=== PATIENT | male | born 1965 | race Caucasian/White ===

== ENCOUNTER 2016-04-15 10:22 | Day surgery (SDC) | payer BC, OTHER ==
[2016-04-12 15:26] VITALS: BMI 36.8
[~2016-04-15 10:22] MED LIST: LACTATED RINGERS 1,000 ML IV SCH; LIDOCAINE 1% 20 ML VIAL (10MG/ML) FOR IV START INTRADERMA PRN
[2016-04-15 10:45] VITALS: RESP 16; TEMP 99
[2016-04-15] MEDS ORDERED: LIDOCAINE 1% INJ 10MG/ML (20 ML MDV) ONE (11:36)
[2016-04-15] MEDS ORDERED: PROPOFOL 10 MG/ML 20 ML VIAL IV ONE (11:36)
--- NOTE | 2016-04-15 11:37 | P.GSHP ---
History of Present Illness H&P Date: 04/15/16 Chief Complaint: Screening colonoscopy This a 50-year-old male who presents today for initial screening colonoscopy. Patient denies a significant GI complaints. He's never had a colonoscopy before. - Constitutional Constitutional: Reports as per HPI Past Medical History Past Medical History: GERD/Reflux, Hyperlipidemia, Sleep Apnea/CPAP/BIPAP Additional Past Medical History / Comment(s): CHRONIC LOWER NECK PAIN, OCC BACK PAIN. USES CPAP OCC. History of Any Multi-Drug Resistant Organisms: None Reported Past Surgical History: Orthopedic Surgery Additional Past Surgical History / Comment(s): EXC GANGLION CYST HAND, pain clinic procedures Past Anesthesia/Blood Transfusion Reactions: No Reported Reaction Additional Past Anesthesia/Blood Transfusion Reaction / Comment(s): NO HX OF ANESTHESIA, has had sedation with pain clinic procedures. Past Psychological History: No Psychological Hx Reported Smoking Status: Never smoker Past Alcohol Use History: Rare Past Drug Use History: None Reported - Past Family History Mother Family Medical History: No Reported History Medications and Allergies Home Medications Medication Instructions Recorded Confirmed Type Pravastatin Sodium [Pravachol] 40 mg PO HS 07/23/13 04/15/16 History Omeprazole [PriLOSEC] 20 mg PO HS 10/18/13 04/15/16 History Ascorbic Acid [Vitamin C] 500 mg PO DAILY 11/13/15 04/15/16 History Cholecalciferol [Vitamin D3] 1,000 unit PO DAILY 11/13/15 04/15/16 History Multivitamin [Men's Multi-Vitamin] 1 tab PO DAILY 11/13/15 04/15/16 History traMADol HCl [Ultram] 50 mg PO QID PRN 02/06/16 04/15/16 History Allergies Allergy/AdvReac Type Severity Reaction Status Date / Time No Known Allergies Allergy Verified 04/15/16 10:48 Surgical - Exam Vital Signs Temp Pulse Resp BP Pulse Ox 99 F 99 16 115/78 94 L 04/15/16 10:41 04/15/16 10:41 04/15/16 10:41 04/15/16 10:41 04/15/16 10:41 - General well developed, no distress - Eyes PERRL - ENT normal pinna - Neck no masses - Respiratory normal expansion - Cardiovascular Rhythm: regular - Abdomen Abdomen: soft, non tender Assessment and Plan Plan: We'll perform screening colonoscopy
--- NOTE | 2016-04-15 11:50 | P.OP ---
Date of Procedure: 04/15/16 Preoperative Diagnosis: Screening colonoscopy Postoperative Diagnosis: Normal colon Procedure(s) Performed: Colonoscopy Anesthesia: MAC Surgeon: Rick Kumar Pathology: none sent Condition: stable Disposition: PACU Description of Procedure: PROCEDURE: The patient was placed on the endoscopy table in the lateral position. Digital rectal examination was performed which revealed no abnormalities. The prostate was symmetrical without nodules. Flexible colonoscope was then placed in the patient's anus and passed throughout the entire colon. The ileocecal valve was visualized. The cecum, ascending, transverse, descending and sigmoid colon were normal. The rectum was normal as well. There were no masses, polyps or diverticula noted in the entire colon. SUMMARY OF FINDINGS: Normal colonoscopy.
[2016-04-15 12:31] VITALS: BP 116/83; PULSE 68
== END 2016-04-15 12:34 | disposition home or self-care (01) ==
LOC: ORWHC2ENDO 10:22
PROVIDERS: ATTEND Surgery
DX: Z12.11 Encounter for screening for malignant neoplasm of colon (principal); K21.9 Gastro-esophageal reflux disease without esophagitis; E78.5 Hyperlipidemia, unspecified; G47.33 Obstructive sleep apnea (adult) (pediatric); G89.29 Other chronic pain; Z79.1 Long term (current) use of non-steroidal anti-inflammatories (NSAID); Z79.899 Other long term (current) drug therapy
CPT/HCPCS: J2001; J2704; G0121; 45378

== ENCOUNTER → 2016-04-19 | Outpatient (CLI) | payer BC, OTHER | END | disposition home or self-care (01) | LOC: RADMRIMAIN 11:41 | PROVIDERS: ATTEND Family Medicine | DX: R51 Headache (principal); Z53.9 Procedure and treatment not carried out, unspecified reason ==

== ENCOUNTER → 2016-04-21 | Outpatient (CLI) | payer BC, OTHER ==
--- NOTE | 2016-04-21 09:17 | MR ---
MRI of the brain with and without contrast HISTORY: Headaches. TECHNIQUE: T1-weighted sagittal, T2, FLAIR, and diffusion axial, postcontrast T1 axial and coronal vi ews of the brain are submitted. CONTRAST: 20 mL MultiHance FINDINGS: There is no evidence of acute ischemia. The ventricles, basal cisterns, and sulci overlying the co nvexities are consistent with the patient's age. There is no mass effect or enhancing mass. Changes of chronic sinusitis noted. Craniocervical junction maintained. Sella turcica has a normal appearance. No cerebellopontine angle mass. IMPRESSION: 1. No acute intracranial process. 2. Mild chronic sinusitis.
== END | disposition home or self-care (01) ==
LOC: RADMRIMAIN 08:14
PROVIDERS: ATTEND Family Medicine
DX: J32.9 Chronic sinusitis, unspecified (principal); R51 Headache
CPT/HCPCS: 70553; A9577

== ENCOUNTER 2016-05-19 06:47 | Day surgery (SDC) | payer BC, OTHER ==
[2016-05-13 15:43] VITALS: BMI 36.0
[2016-05-19 07:27] VITALS: RESP 18; TEMP 98.3
[2016-05-19] MEDS ORDERED: LACTATED RINGERS 1,000 ML IV SCH (07:30)
[2016-05-19] MEDS ORDERED: LIDOCAINE 1% 20 ML VIAL (10MG/ML) FOR IV START INTRADERMA ONE (07:45)
[2016-05-19] MEDS ORDERED: IOHEXOL 180 MG/ML 1 ML ML ONE (08:09)
[2016-05-19] MEDS ORDERED: DEXAMETHASONE SOD PHOSPHATE 10 MG/ML 1 ML VIAL ONE (08:09)
[2016-05-19] MEDS ORDERED: fentaNYL (PF) 50 MCG/ML 2 ML AMP ONE (08:09)
[2016-05-19] MEDS ORDERED: BUPIVACAINE (PF) 0.5% 30 ML VIAL ONE (08:09)
[2016-05-19] MEDS ORDERED: MIDAZOLAM 2 MG/2 ML VIAL ONE (08:09)
--- NOTE | 2016-05-19 08:34 | FL ---
EXAMINATION TYPE: FL guided pain mgmt statistic DATE OF EXAM: 05/19/2016 8:31 AM HISTORY: Pain cervical epidural steroid injection, 1sec fl time
[2016-05-19] MEDS ORDERED: LACTATED RINGERS 1,000 ML IV ONE (08:35)
[2016-05-19 08:38] VITALS: PULSE 75
--- NOTE | 2016-05-19 08:45 | P.PCN ---
Date of Procedure: 05/19/16 Preoperative Diagnosis: #1 severe persistent neck pain #2 degenerative disc disease cervical spine with multiple level neuroforaminal stenosis #3 cervical radiculopathy Postoperative Diagnosis: Same Procedure(s) Performed: Transcervical epidural injection at C6-C7 with local anesthetic and corticosteroid utilizing fluoroscopic assistance for needle placement Anesthesia: MAC Surgeon: Sj Ann Estimated Blood Loss (ml): 0 IV fluids (ml): 400 Pathology: none sent Condition: stable Disposition: PACU Indications for Procedure: 1 severe persistent neck pain #2 severe unrelenting cervical radiculopathy left greater than right Description of Procedure: DESCRIPTION OF THE PROCEDURE: The patient was brought to the same day surgery center where the patient was changed into a surgical gown. Full external monitors were placed. The patient was positioned in a sitting position with legs dangling over the bedside and arms resting on a pillow on a bedside table. A wide field Betadine prep was performed to neck and upper back and the area was draped in the usual sterile technique. Gross palpation was utilized to identify the skin and subcutaneous tissue immediately overlying the C6-7 vertebral level. In the midline at this appropriate C6-7 vertebral level, the skin, superficial and deep subcutaneous tissues were infiltrated in the midline with 6 mL of 1% preservative-free Xylocaine in a field block technique overlying the C6-7 vertebral level. Through the previously anesthetized area an #18-gauge Tuohy needle was passed until the tip of the needle was felt to be in the posterior ligamentous complex. Once this was achieved, the epidural needle stylet was removed and a tmfe-xv-witergvdtp syringe was attached, and utilizing a oduf-pb-iwqlrdjzdk technique the cervical epidural space at the C6- 7 level was located with ease. Following confirmation of the location of the epidural space, the epidural syringe was detached and no blood or cerebrospinal fluid was noted to be coming from the hub of the epidural needle. At this point in time, a solution containing 80 mg of Depo-Medrol, 5.0 mL of 0.25% preservative-free Marcaine, and 3 mL of 0.9% preservative-free normal saline was injected through the epidural needle into the cervical epidural space after negative aspiration. The patient tolerated the injection of the therapeutic substance without any difficulty or complication whatsoever. Upon completion of the therapeutic injection, the needle was removed and hemostasis was noted. A sterile dressing was applied.
[2016-05-19 08:54] VITALS: BP 111/70
--- NOTE | 2016-05-24 06:30 | CDI ---
Dear Dr. Ann, The Procedure note documents that MAC anesthesia was provided. The Pain Procedure Record, however, has Moderate Sedation checked under Anesthesia Plan. This is conflicting documentation that needs clarification. For proper report purposes, please clarify if the sedation provided Wai Saleh was MAC (Monitored Anesthesia Care) or Moderate/Copnscious Sedation. PLEASE DOCUMENT THIS CLARIFICATION AN ADDENDUM TO THE PROCEDURE NOTE. If you have any questions regarding this query, please contact Shaneka Beach, Cosmetologist Apprentice at [phone]. Thank you for your time, Onelia OrdoñezM[facility] Outpatient Seed Expert [email or web address]
== END 2016-05-19 09:06 | disposition home or self-care (01) ==
LOC: ORPAIN 06:47
PROVIDERS: ATTEND Anesthesiology
DX: G89.29 Other chronic pain (principal); M54.2 Cervicalgia; M50.10 Cervical disc disorder with radiculopathy, unspecified cervical region; M48.02 Spinal stenosis, cervical region; Z79.1 Long term (current) use of non-steroidal anti-inflammatories (NSAID); Z79.891 Long term (current) use of opiate analgesic
CPT/HCPCS: 62321; 99152; J2250; J1100; Q9965; J3010

== ENCOUNTER 2016-08-05 07:52 | Day surgery (SDC) | payer BC, OTHER ==
[2016-08-02 15:11] VITALS: BMI 36.0
[~2016-08-05 07:52] MED LIST changes: -LIDOCAINE 1% 20 ML VIAL (10MG/ML) FOR IV START INTRADERMA PRN
[2016-08-05 08:11] VITALS: TEMP 98.3
[2016-08-05] MEDS ORDERED: MIDAZOLAM 2 MG/2 ML VIAL ONE (08:51)
[2016-08-05] MEDS ORDERED: fentaNYL (PF) 50 MCG/ML 2 ML AMP ONE (08:51)
[2016-08-05] MEDS ORDERED: IOHEXOL 180 MG/ML 1 ML ML ONE (08:51)
[2016-08-05] MEDS ORDERED: DEXAMETHASONE SOD PHOSPHATE 10 MG/ML 1 ML VIAL ONE (08:51)
--- NOTE | 2016-08-05 09:09 | P.PCN ---
Date of Procedure: 08/05/16 Preoperative Diagnosis: Postoperative Diagnosis: Procedure(s) Performed: . PROCEDURE 1. Cervical epidural steroid injection under fluoroscopic guidance, C6-7 2. Cervical epidurogram. PREOPERATIVE DIAGNOSIS: 1- Cervical Degenerative Disc Diseases 2- Cervical radiculopathy. POSTOPERATIVE DIAGNOSIS: : 1- Cervical Degenerative Disc Diseases , 2- Cervical radiculopathy. ANESTHESIA: Local anesthesia with 1% lidocaine3 ml ,and IV sedation with Versed 2 mg and Fentanyl 100 mcg. EBL 0 PROCEDURE INDICATION: The patient with neck pain and radiculitis unresponsive to conservative treatment consents for procedure. PROCEDURE DESCRIPTION / TECHNIQUE: The patient was seen and identified in the preoperative area. Risks, benefits, complications, including but not limited to infections ,bleeding , allergic reactions to the medications ,and not complete pain releife, and alternatives were discussed with the patient, the patient agreed to proceed with the procedure and signed the consent. Patient was taken to the OR and time out was completed. The patient was placed in the prone position on the procedure table. A pillow was placed under the patients chest to increase the cervical interlaminar space. The cervical area was prepped and draped in the usual sterile fashion. Vital signs were closely monitored during the procedure. Conscious sedation was used during the procedure to decrease patients anxiety. Using anterior-posterior fluoroscopy, the C6-7 interlaminar space was identified and the skin over this site was marked and then infiltrated with 1% lidocaine subcutaneously. Subsequently, a 20-gauge 3-1/2-inch Tuohy epidural needle was inserted and advanced toward the epidural space by means of the `` hanging-drop technique and guided by AP and lateral fluoroscopy. The correct needle position in the epidural space was verified with the injection of 2 mL of the water soluble contrast dye Isovue-180 and observing an excellent epidurogram with the epidural spread of the dye, after negative aspiration for blood and CSF and in the absence of paresthesias. Again after negative aspiration, mixture containing 20 mg Dexamethasone and 2 ml of preservative- free normal saline injected and a washout of epidurogram was seen. Needle was withdrawn intact, skin was cleansed, and bandages were applied. Complications= none. Disposition= patient was placed in supine position and transferred to the recovery room area in stable condition and there was no evidence of upper or lower extremity motor or sensory deficit after the procedure patient was discharged from recovery room after discharge criteria met and home discharge instructions was given by the staff and patient will follow with the pain clinic in 2-4 weeks Implants: Indications for Procedure: Operative Findings: Description of Procedure:
[2016-08-05] MEDS ORDERED: IV FLUID CONTINUATION 1,000 ML IV ONE (09:16)
--- NOTE | 2016-08-05 09:25 | FL ---
EXAMINATION TYPE: FL guided pain mgmt statistic DATE OF EXAM: 08/05/2016 HISTORY: Flouroscopy time 4 seconds of fluoroscopy provided. IMPRESSION: 1. Fluoroscopy time.
[2016-08-05 09:36] VITALS: BP 141/88; PULSE 66; RESP 16
== END 2016-08-05 09:42 | disposition home or self-care (01) ==
LOC: ORPAIN 07:52
PROVIDERS: ATTEND Specialist
DX: M50.10 Cervical disc disorder with radiculopathy, unspecified cervical region (principal)
CPT/HCPCS: 62321; 99152; J2250; J1100; Q9965; J3010

== ENCOUNTER 2016-11-10 08:51 | Day surgery (SDC) | payer BC, OTHER ==
[2016-11-08 15:06] VITALS: BMI 36.8
[2016-11-10 10:42] VITALS: RESP 16; TEMP 98.2
--- NOTE | 2016-11-10 11:18 | FL ---
EXAMINATION TYPE: FL guided pain mgmt statistic DATE OF EXAM: 11/10/2016 CLINICAL HISTORY: Neck pain. TECHNIQUE: Fluoroscopy. COMPARISON: None. FINDINGS: Fluoroscopic guidance was provided during pain relief procedure performed by Dr. Payton . A total of 8 seconds of fluoroscopic time was utilized during the procedure and two spot images are a cquired. Images acquired shows needle localization with contrast injection in the lower cervical spi ne epidural space. IMPRESSION: As Above.
[2016-11-10 11:32] VITALS: PULSE 62
[2016-11-10] MEDS ORDERED: IV FLUID CONTINUATION 1,000 ML IV ONE (11:44)
--- NOTE | 2016-11-10 11:45 | P.PCN ---
Date of Procedure: 11/10/16 Surgeon: Jimi Payton Pathology: none sent Condition: stable Disposition: PACU Description of Procedure: PROCEDURE: 1. Cervical epidural steroid injection under fluoroscopic guidance, C7-T1 2. Cervical epidurogram. PREOPERATIVE DIAGNOSIS: 1- Cervical radiculopathy., POSTOPERATIVE DIAGNOSIS: : 1- Cervical radiculopathy. ANESTHESIA: Local anesthesia with 1% lidocaine and IV sedation with Versed 2 mg and Fentanyl 100 mcg. PROCEDURE INDICATION: The patient with neck pain and radiculitis unresponsive to conservative treatment consents for procedure. No use of blood thinners. PROCEDURE DESCRIPTION / TECHNIQUE: The patient was seen and identified in the preoperative area. Risks, benefits, complications (with risks including but not limited to infections, bleeding, nerve damage, allergic reactions to the medications, and incomplete pain relief) and alternatives were discussed with the patient, the patient agreed to proceed with the procedure and signed the consent after all questions were answered to patient's satisfaction. Patient was taken to the OR and time out was completed. The patient was placed in the prone position on the procedure table. A pillow was placed under the patients chest to increase the cervical interlaminar space. The cervical area was prepped and draped in the usual sterile fashion. Vital signs were closely monitored during the procedure. Conscious sedation was used during the procedure to decrease patients anxiety. Using anterior-posterior fluoroscopy, the C7-T1 interlaminar space was identified and the skin over this site was marked and then infiltrated with 1% lidocaine subcutaneously in a right paramedian fashion. Subsequently, a 20- gauge 3-1/2-inch Tuohy epidural needle was inserted and advanced toward the right side of the epidural space by means of the loss of resistance technique and guided by AP and lateral fluoroscopy. The correct needle position in the epidural space was verified with the injection of 1 mL of the water soluble contrast dye Isovue-180 and observing an excellent epidurogram with the epidural spread of the dye, after negative aspiration for blood and CSF and in the absence of paresthesias. Again after negative aspiration, a 4 ml mixture containing 20 mg Decadron and 2 ml of preservative-free saline, the solution was injected and a washout of epidurogram was seen. Needle was withdrawn intact , skin was cleansed, and bandages were applied. Complications: No acute complications. Disposition: patient was placed in supine position and transferred to the recovery room area in stable condition. There was no evidence of upper or lower extremity motor or sensory deficit after the procedure. Patient was discharged from recovery room after discharge criteria met and home discharge instructions was given by the staff and patient will follow up with the pain clinic for another procedure in approximately 2-3 months. He was given a prescription for Motrin 800 mg #90 with two refills.
[2016-11-10 11:48] VITALS: BP 103/64
== END 2016-11-10 12:00 | disposition home or self-care (01) ==
LOC: ORPAIN 08:51
PROVIDERS: ATTEND Anesthesiology
DX: M54.12 Radiculopathy, cervical region (principal); K21.9 Gastro-esophageal reflux disease without esophagitis; E78.5 Hyperlipidemia, unspecified; Z79.899 Other long term (current) drug therapy
CPT/HCPCS: 62321; 99152; J2250; J1100; Q9965; J3010

== ENCOUNTER 2017-03-16 07:55 | Day surgery (SDC) | payer BC, OTHER ==
[2017-03-10 16:14] VITALS: BMI 36.8
[2017-03-16] MEDS ORDERED: LACTATED RINGERS 1,000 ML IV SCH (08:15)
[2017-03-16 09:22] VITALS: TEMP 97.3
[2017-03-16] MEDS ORDERED: LIDOCAINE 1% 20 ML VIAL (10MG/ML) FOR IV START INTRADERMA ONE (09:22)
[2017-03-16] MEDS ORDERED: IV FLUID CONTINUATION 1,000 ML IV ONE (10:04)
[2017-03-16 10:06] VITALS: RESP 18
[2017-03-16 10:28] VITALS: BP 111/75; PULSE 69
--- NOTE | 2017-03-16 10:40 | FL ---
Fluoroscopy INDICATION: Pain FINDINGS: Fluoroscopy time: 7 seconds. Images obtained: 2. IMPRESSIONS: 1. Documentation of fluoroscopy.
--- NOTE | 2017-03-21 12:39 | P.PCN ---
Date of Procedure: 03/21/17 Surgeon: Jimi Payton Pathology: none sent Condition: stable Disposition: PACU Description of Procedure: PROCEDURE: 1. Cervical epidural steroid injection under fluoroscopic guidance, C7-T1 2. Cervical epidurogram. PREOPERATIVE DIAGNOSIS: 1- Cervical radiculopathy., POSTOPERATIVE DIAGNOSIS: : 1- Cervical radiculopathy. ANESTHESIA: Local anesthesia with 1% lidocaine and IV sedation with Versed/ fentanyl PROCEDURE INDICATION: The patient with neck pain and radiculitis unresponsive to conservative treatment consents for procedure after excellent relief from previous CESIs. No use of blood thinners. PROCEDURE DESCRIPTION / TECHNIQUE: The patient was seen and identified in the preoperative area. Risks, benefits, complications (with risks including but not limited to infections, bleeding, nerve damage, allergic reactions to the medications, and incomplete pain relief) and alternatives were discussed with the patient, the patient agreed to proceed with the procedure and signed the consent after all questions were answered to patient's satisfaction. Patient was taken to the OR and time out was completed. The patient was placed in the prone position on the procedure table. A pillow was placed under the patients chest to increase the cervical interlaminar space. The cervical area was prepped and draped in the usual sterile fashion. Vital signs were closely monitored during the procedure. Conscious sedation was used during the procedure to decrease patients anxiety. Using anterior-posterior fluoroscopy, the C7-T1 interlaminar space was identified and the skin over this site was marked and then infiltrated with 1% lidocaine subcutaneously in a right paramedian fashion. Subsequently, a 20- gauge 3-1/2-inch Tuohy epidural needle was inserted and advanced toward the right side of the epidural space by means of the loss of resistance technique and guided by AP and lateral fluoroscopy. The correct needle position in the epidural space was verified with the injection of 1 mL of the water soluble contrast dye Isovue-180 and observing an excellent epidurogram with the epidural spread of the dye, after negative aspiration for blood and CSF and in the absence of paresthesias. Again after negative aspiration, a 4 ml mixture containing 20 mg Decadron and 2 ml of preservative-free saline was injected and a washout of epidurogram was seen. Needle was withdrawn intact, skin was cleansed, and bandages were applied. Complications: No acute complications. Disposition: patient was placed in supine position and transferred to the recovery room area in stable condition. There was no evidence of upper or lower extremity motor or sensory deficit after the procedure. Patient was discharged from recovery room after discharge criteria met and home discharge instructions was given by the staff and patient will follow up with the pain clinic for another procedure in approximately 2-3 months.
== END 2017-03-16 10:54 | disposition home or self-care (01) ==
LOC: ORPAIN 07:55
PROVIDERS: ATTEND Anesthesiology
DX: M54.12 Radiculopathy, cervical region (principal); E78.5 Hyperlipidemia, unspecified; K21.9 Gastro-esophageal reflux disease without esophagitis
CPT/HCPCS: 62321; J2250; J1100; Q9965; J3010

== ENCOUNTER 2017-06-15 08:54 | Day surgery (SDC) | payer BC, OTHER ==
[2017-06-15] MEDS ORDERED: LACTATED RINGERS 1,000 ML IV SCH (09:15)
[2017-06-15 09:24] VITALS: RESP 16; TEMP 98
[2017-06-15] MEDS ORDERED: LIDOCAINE 1% 20 ML VIAL (10MG/ML) FOR IV START INTRADERMA ONE (09:33)
--- NOTE | 2017-06-15 09:58 | P.PCN ---
Date of Procedure: 06/15/17 Surgeon: Jimi Payton Pathology: none sent Condition: stable Disposition: PACU Description of Procedure: PROCEDURE: 1. Cervical epidural steroid injection under fluoroscopic guidance, C7-T1 2. Cervical epidurogram. PREOPERATIVE DIAGNOSIS: 1- Cervical radiculopathy., POSTOPERATIVE DIAGNOSIS: : 1- Cervical radiculopathy. ANESTHESIA: Local anesthesia with 1% lidocaine and IV sedation with Versed/ fentanyl PROCEDURE INDICATION: The patient with neck pain and radiculitis unresponsive to conservative treatment consents for procedure after excellent relief from previous CESIs. No use of blood thinners. PROCEDURE DESCRIPTION / TECHNIQUE: The patient was seen and identified in the preoperative area. Risks, benefits, complications (with risks including but not limited to infections, bleeding, nerve damage, allergic reactions to the medications, and incomplete pain relief) and alternatives were discussed with the patient, the patient agreed to proceed with the procedure and signed the consent after all questions were answered to patient's satisfaction. Patient was taken to the OR and time out was completed. The patient was placed in the prone position on the procedure table. A pillow was placed under the patients chest to increase the cervical interlaminar space. The cervical area was prepped and draped in the usual sterile fashion. Vital signs were closely monitored during the procedure. Conscious sedation was used during the procedure to decrease patients anxiety. Using anterior-posterior fluoroscopy, the C7-T1 interlaminar space was identified and the skin over this site was marked and then infiltrated with 1% lidocaine subcutaneously in a right paramedian fashion. Subsequently, a 20- gauge 3-1/2-inch Tuohy epidural needle was inserted and advanced toward the right side of the epidural space by means of the loss of resistance technique and guided by AP and lateral fluoroscopy. The correct needle position in the epidural space was verified with the injection of 1 mL of the water soluble contrast dye Isovue-180 and observing an excellent epidurogram with the epidural spread of the dye, after negative aspiration for blood and CSF and in the absence of paresthesias. Again after negative aspiration, a 3 ml mixture containing 20 mg Decadron and 1 ml of preservative-free saline was injected and a washout of epidurogram was seen. Needle was withdrawn intact, skin was cleansed, and bandages were applied. Complications: No acute complications. Disposition: patient was placed in supine position and transferred to the recovery room area in stable condition. There was no evidence of upper or lower extremity motor or sensory deficit after the procedure. Patient was discharged from recovery room after discharge criteria met and home discharge instructions was given by the staff and patient will return for another cervical ANDREAS procedure in approximately 3 months.
[2017-06-15] MEDS ORDERED: IV FLUID CONTINUATION 1,000 ML IV ONE (10:03)
--- NOTE | 2017-06-15 10:06 | FL ---
EXAMINATION TYPE: FL guided pain mgmt statistic DATE OF EXAM: 06/15/2017 HISTORY: Flouroscopy time 8 seconds of fluoroscopy provided. IMPRESSION: 1. Fluoroscopy time.
[2017-06-15 10:20] VITALS: BP 117/65; PULSE 70
== END 2017-06-15 10:40 | disposition home or self-care (01) ==
LOC: ORPAIN 08:54
PROVIDERS: ATTEND Anesthesiology
DX: G89.29 Other chronic pain (principal); M54.12 Radiculopathy, cervical region; E78.5 Hyperlipidemia, unspecified; K21.9 Gastro-esophageal reflux disease without esophagitis; Z79.899 Other long term (current) drug therapy
CPT/HCPCS: 62321; J2250; J1100; J3010; Q9966; 99152

== ENCOUNTER 2017-10-05 09:09 | Day surgery (SDC) | payer BC, OTHER ==
[2017-09-30 09:41] VITALS: BMI 37.5
[2017-10-05 10:20] VITALS: RESP 18; TEMP 98
[2017-10-05] MEDS ORDERED: LIDOCAINE 1% 20 ML VIAL (10MG/ML) FOR IV START INTRADERMA ONE (10:20)
[2017-10-05] MEDS ORDERED: LACTATED RINGERS 1,000 ML IV ONE (10:20)
--- NOTE | 2017-10-05 11:15 | P.PCN ---
Date of Procedure: 10/05/17 Procedure(s) Performed: . PROCEDURE 1. Cervical epidural steroid injection under fluoroscopic guidance, C7-T1 2. Cervical epidurogram. PREOPERATIVE DIAGNOSIS: 1- Cervical radiculopathy. POSTOPERATIVE DIAGNOSIS: : 1- Cervical radiculopathy. ANESTHESIA: Local anesthesia with 1% lidocaine and IV sedation with Versed 4 mg and Fentanyl 100 mcg. EBL 0 PROCEDURE INDICATION: The patient with neck pain and radiculitis unresponsive to conservative treatment consents for procedure. PROCEDURE DESCRIPTION / TECHNIQUE: The patient was seen and identified in the preoperative area. Risks, benefits, complications, including but not limited to infections ,bleeding , allergic reactions to the medications ,and not complete pain releife, and alternatives were discussed with the patient, the patient agreed to proceed with the procedure and signed the consent. Patient was taken to the OR and time out was completed. The patient was placed in the prone position on the procedure table. A pillow was placed under the patients chest to increase the cervical interlaminar space. The cervical area was prepped and draped in the usual sterile fashion. Vital signs were closely monitored during the procedure. Conscious sedation was used during the procedure to decrease patients anxiety. Using anterior-posterior fluoroscopy, the C7-T1 interlaminar space was identified and the skin over this site was marked and then infiltrated with 1% lidocaine subcutaneously. Subsequently, a 20-gauge 3-1/2-inch Tuohy epidural needle was inserted and advanced toward the epidural space by means of the `` hanging-drop technique and guided by AP and lateral fluoroscopy. The correct needle position in the epidural space was verified with the injection of 2 mL of the water soluble contrast dye Isovue-200 and observing an excellent epidurogram with the epidural spread of the dye, after negative aspiration for blood and CSF and in the absence of paresthesias. Again after negative aspiration, mixture containing 20 mg Dexamethasone and 2 ml of preservative- free normal saline injected and a washout of epidurogram was seen. Needle was withdrawn intact, skin was cleansed, and bandages were applied. Complications= none. Disposition= patient was placed in supine position and transferred to the recovery room area in stable condition and there was no evidence of upper or lower extremity motor or sensory deficit after the procedure patient was discharged from recovery room after discharge criteria met and home discharge instructions was given by the staff and patient will follow with the pain clinic in 2-4 weeks
[2017-10-05] MEDS ORDERED: IV FLUID CONTINUATION 1,000 ML IV ONE (11:19)
--- NOTE | 2017-10-05 11:26 | FL ---
EXAMINATION TYPE: FL guided pain mgmt statistic DATE OF EXAM: 10/05/2017 CLINICAL HISTORY: Neck pain. TECHNIQUE: Fluoroscopy. COMPARISON: None. FINDINGS: Fluoroscopic guidance was provided during pain relief procedure performed by Dr. Mccoy . A total of 3 seconds of fluoroscopic time was utilized during the procedure and single spot fluoro scopic image is acquired. Single image acquired shows needle localization at C7 level. IMPRESSION: As Above.
[2017-10-05 11:41] VITALS: BP 107/70; PULSE 73
== END 2017-10-05 11:51 | disposition home or self-care (01) ==
LOC: ORPAIN 09:09
PROVIDERS: ATTEND Specialist
DX: M54.12 Radiculopathy, cervical region (principal)
CPT/HCPCS: 62321; J2250; J1100; J3010; Q9966; 99152

== ENCOUNTER → 2018-06-12 | Outpatient (CLI) | payer BC, OTHER ==
[2018-06-12 11:43] VITALS: BP 122/83; PULSE 81; RESP 16
--- NOTE | 2018-06-12 12:18 | P.PAINPG ---
Subjective Progress Note Date: 06/12/18 This is a follow visit for this 52 years old male with a chronic history of severe neck pain with radiation to the upper extremity, patient diagnosed with cervical radiculopathy and cervical disc disease multilevels, patient had multiple cervical epidural steroid injections done previously ,which helped his neck pain significantly, last cervical epidural steroid injection was done in December 2017, she reported that over the last 2-3 months his neck pain increased, and he is currently complaining of numbness and tingling sensation in the right upper extremity, the neck pain increases with any neck movement and with any activity, he denies any motor or sensory deficit he denies any change in her bowel movements or urination he denies any fever or night sweats, he continued to use Motrin 6-800 mg every 8 hours when necessary, he denies any side effect of the medication, Objective - Vital Signs Vital signs: Vital Signs Temp Pulse 81 06/12/18 11:37 Resp 16 06/12/18 11:37 BP 122/83 06/12/18 11:37 Pulse Ox Intake & Output 06/11/18 06/12/18 06/12/18 18:59 06:59 18:59 Weight 113.398 kg - Exam Physical Examinations : -Constitutiona : Cooperative , not in acute distress . -HEENT : nech ; supple , no Lymphadenopathy , normal thyroid size . eyes : no ptosis , no icterus, no photophobia . ENT : normal of hearing , normal oropharynx , no Thrush . - Respiratory : Chest clear to auscultations Bilaterally , no wheezing , no Rhonchi . - Cardiovascula : regular rate and rhythem , S1 , S2 , no S3 , no S4. - Gastrointestina : abdomen soft no tenderness , bowel sounds , no organomegally . - Genitourinary : Defferred . - neurologic : Cranial nerve II to XII intact , no focal neurological deffecit . -psychatric : alert , oriented X 3 , appropriate affect , intact judgment and insight . -Lymphatic : no Lymphadenopathy . - musculoskeltal : Cervical Spine motor stregnth in the deltoid and biceps, normal right side , normal Left side motor stregnth biceps and the wrist extensors normal right side ,normal left side . motor stregnth in the triceps muscle . normal Right side , normal Left side deep tendon reflexes normal at the biceps , normal at Brachioradialis , normal at triceps. positive cervical facet loading test . Spurling test negative bilaterally. Neck distraction test negative bilaterally. Todd sign negative bilaterally. Assessment and Plan Plan: Assessment and plan=1-cervical radiculopathy. 2-cervical disc herniation. Patient could benefit from repeat cervical epidural steroid injection at C7-T1 , also patient benefits from Motrin 800 mg every 8 hours Patient getting medication [id number] , side effect of the medication discussed with the patient. Discussed with the patient the option of referring him to see an/spine surgeon for evaluation, patient declined. Time with Patient: Less than 30 PQRS Measure Charge Sheet Measure #130: Documentation of Current Meds in Medical Chart: Patient's medications documented in chart Measure #226: Tobacco Use: Screen & Cessation Intervention: Pt not a tobacco user Measure #111: Pneumonia Vaccination: Pneumococcal vaccine NOT administered or previously given Measure #47: Advance Care Plan: Advance care planning discussed & documented, pt chose/unable to give Measure #412: Opioid Treatment Agreement: No documentation of signed opioid treatment agreement Measure #408: Opioid Therapy Follow-up Evaluation: Patient had NO f/u eval minimum every 3 months during opioid therapy Measure #317: Preventitive Care & Scrn High Bld Press & F/U: Normal blood pressure, f/u not required Measure #128: Body Mass Index (BMI) Screening & Follow-up: BMI documented ABOVE normal parameters - f/u documented Measure #131: Pain Assessment & Follow-up: Pain positive & plan documented, Follow-up scheduled Measure #431: Unhealthy Alcohol Use Preventative Care & Scrn: Patient not identified as an unhealthy alcohol user PQRS Narrative: Smoking Status Never smoker Do You Want the Pneumonia No Vaccine AT THIS TIME? Blood Pressure 122/83 Pain Intensity [Posterior Neck 9 ] Scale Used Numeric (1 - 10) Hx Alcohol Use (MH) No Home Medications: Ambulatory Orders Pravastatin Sodium [Pravachol] 40 mg PO HS 07/23/13 Omeprazole [PriLOSEC] 20 mg PO HS 10/18/13 Ascorbic Acid [Vitamin C] 500 mg PO DAILY 11/13/15 Cholecalciferol [Vitamin D3] 1,000 unit PO DAILY 11/13/15 Multivitamin [Men's Multi-Vitamin] 1 tab PO DAILY 11/13/15 Ibuprofen [Motrin] 600 mg PO Q8HR PRN #60 tab 01/13/16 Controlled Substance Measures - Controlled Substance Measures Is patient prescribed a controlled substance at discharge?: No
== END | disposition home or self-care (01) ==
LOC: PNWHC3 11:18
PROVIDERS: ATTEND Anesthesiology
DX: G89.29 Other chronic pain (principal); M50.10 Cervical disc disorder with radiculopathy, unspecified cervical region
CPT/HCPCS: 99211

== ENCOUNTER 2018-06-27 05:37 | Day surgery (SDC) | payer BC, OTHER ==
[2018-06-23 12:05] VITALS: BMI 37.5
[2018-06-27 06:09] VITALS: TEMP 97.4
[2018-06-27] MEDS ORDERED: LIDOCAINE 1% 20 ML VIAL (10MG/ML) FOR IV START INTRADERMA ONE (06:09)
[2018-06-27] MEDS ORDERED: LACTATED RINGERS 1,000 ML IV ONE (06:09)
--- NOTE | 2018-06-27 06:46 | P.PCN ---
Date of Procedure: 06/27/18 Description of Procedure: PROCEDURE 1. Cervical epidural steroid injection under fluoroscopic guidance, C7-T1 2. Cervical epidurogram. PREOPERATIVE DIAGNOSIS: Cervical radiculopathy POSTOPERATIVE DIAGNOSIS: Cervical radiculopathy ANESTHESIA: Local anesthesia with 1% lidocaine and (IV conscious sedation ) PROCEDURE DESCRIPTION / TECHNIQUE: The patient was seen and identified in the preoperative area. Risks, benefits, complications, including but not limited to infections ,bleeding , allergic reactions to the medications,and incomplete pain relief. Risks, benefits, and alternatives were discused with the patient and the patient has consented to the procedure. Patient was taken to the OR and time out was completed. The patient was placed in the prone position on the procedure table. A pillow w as placed under the patients chest to increase the cervical interlaminar space. The cervical area was prepped and draped in the usual sterile fashion. Vital signs were closely monitored during the procedure. Using anterior-posterior fluoroscopy, the C7-T1 interlaminar space was identified and the skin over this site was marked and then infiltrated with 1% lidocaine subcutaneously. Subsequently, a 20-gauge 3-1/2-inch Tuohy epidural needle was inserted and advanced toward the epidural space by means of the [id number] technique and guided by AP and lateral fluoroscopy. The correct needle position in the epidural space was verified with the injection of 1 mL of the water soluble contrast dye Isovue-180 and observing an excellent epidurogram with the epidural spread of the dye, after negative aspiration for blood and CSF and in the absence of paresthesias. Again after negative aspiration, a mixture containing 10 mg Dexamethasone and 2 ml of preservative- free normal saline injected and a washout of epidurogram was seen. Needle was withdrawn intact, skin was cleansed, and bandages were applied. Complications: none. Disposition: patient was placed in supine position and transferred to the recovery room area in stable condition and there was no evidence of upper or lower extremity motor or sensory deficit after the procedure patient was discharged from recovery room after discharge criteria met and home discharge instructions was given by the staff and patient will follow with the pain as directed.
[2018-06-27 07:13] VITALS: RESP 16
[2018-06-27] MEDS ORDERED: IV FLUID CONTINUATION 1,000 ML IV ONE (07:19)
[2018-06-27 07:23] VITALS: BP 132/69; PULSE 85
--- NOTE | 2018-06-27 09:22 | FL ---
Fluoroscopy INDICATION: Pain FINDINGS: Fluoroscopy time: 11 seconds. Images obtained: 1. IMPRESSIONS: 1. Documentation of fluoroscopy.
== END 2018-06-27 07:35 | disposition home or self-care (01) ==
LOC: ORPAIN 05:37
PROVIDERS: ATTEND Hospitalist
DX: M54.12 Radiculopathy, cervical region (principal); M50.90 Cervical disc disorder, unspecified, unspecified cervical region; M50.20 Other cervical disc displacement, unspecified cervical region; Z79.1 Long term (current) use of non-steroidal anti-inflammatories (NSAID); Z79.899 Other long term (current) drug therapy
CPT/HCPCS: 62321; J2250; J1100; J3010; Q9966

== ENCOUNTER 2018-09-19 06:46 | Day surgery (SDC) | payer BC, OTHER ==
[2018-09-14 10:21] VITALS: BMI 37.5
[2018-09-19 07:31] VITALS: RESP 18; TEMP 97.8
--- NOTE | 2018-09-19 08:14 | P.PCN ---
Date of Procedure: 09/19/18 Surgeon: Beata Ho Pathology: none sent Condition: stable Disposition: PACU Description of Procedure: PROCEDURE 1. Cervical epidural steroid injection under fluoroscopic guidance, C7-T1 Right paramedian approach. 2. Cervical epidurogram. : PREOPERATIVE DIAGNOSIS: Cervical radiculopathy, cervical spondylosis without myelopathy POSTOPERATIVE DIAGNOSIS: : Same as above ANESTHESIA: Local anesthesia with 1% lidocaine and IV moderate conscious sedation with Versed and Fentanyl . EBL 0 PROCEDURE INDICATION: The patient with neck pain and radiculopathy unresponsive to conservative treatment consents for procedure. PROCEDURE DESCRIPTION / TECHNIQUE: The patient was seen and identified in the preoperative area. Risks, benefits, complications, including but not limited to infections ,bleeding , allergic reactions to the medications ,and not complete pain relief, and alternatives were discussed with the patient, the patient agreed to proceed with the procedure and signed the consent. Patient was taken to the OR and time out was completed. The patient was placed in the prone position on the procedure table. A pillow was placed under the patients chest to increase the flexion of the cervical spine . The cervical area was prepped and draped in the usual sterile fashion. Vital signs were closely monitored during the procedure. Conscious sedation was used during the procedure to decrease patients anxiety. Using anterior-posterior fluoroscopy, the C7-T1 interlaminar space was identified and the skin over this site was marked and then infiltrated with 1% lidocaine subcutaneously. Subsequently, a 20-gauge 3-1/2-inch Tuohy epidural needle was inserted and advanced toward the epidural space by means of loss of resistance to air technique and guided by AP and lateral fluoroscopy. The needle tip contacted the lamina of T1 vertebra first, then it was walked off bone and into the epidural space using the loss of to air and fluoroscopic guidance to identify the epidural space. The correct needle position in the epidural space was verified with the injection of 1 mL of the water soluble contrast dye Isovue and observing an excellent epidurogram with the epidural spread of the dye, after negative aspiration for blood and CSF and in the absence of paresthesias. Again after negative aspiration, a 4 ml mixture containing 10 mg of Decadron and 3 ml of preservative free Normal Saline solution was injected and a washout of epidurogram was seen. Needle was withdrawn intact, skin was cleansed, and bandages were applied.
[2018-09-19] MEDS ORDERED: IV FLUID CONTINUATION 1,000 ML IV ONE (08:17)
[2018-09-19 08:33] VITALS: BP 118/77; PULSE 67
--- NOTE | 2018-09-19 09:21 | FL ---
EXAMINATION TYPE: FL guided pain mgmt statistic DATE OF EXAM: 09/19/2018 CLINICAL HISTORY: Neck pain. TECHNIQUE: Fluoroscopy. COMPARISON: None. FINDINGS: Fluoroscopic guidance was provided during pain relief procedure performed by Dr. Ho. A total of 7 seconds of fluoroscopic time was utilized during the procedure and 1 spot images are ac quired. Images acquired shows needle localization of the cervical spine. IMPRESSION: As Above.
== END 2018-09-19 08:44 | disposition home or self-care (01) ==
LOC: ORPAIN 06:46
PROVIDERS: ATTEND Anesthesiology
DX: M47.22 Other spondylosis with radiculopathy, cervical region (principal); K21.9 Gastro-esophageal reflux disease without esophagitis
CPT/HCPCS: 62321; J2250; J1100; J3010; Q9966; 99152

== ENCOUNTER → 2018-11-07 | Outpatient (CLI) | payer BC, OTHER ==
[2018-11-07 14:29] VITALS: BP 128/76; PULSE 100; RESP 16
--- NOTE | 2018-11-07 14:46 | P.PAINPG ---
Subjective Progress Note Date: 11/07/18 This is a follow visit for this 53 years old male with a chronic history of severe neck pain with radiation to the upper extremity, patient diagnosed with cervical radiculopathy and cervical disc disease multilevels, patient had multiple cervical epidural steroid injections done previously ,which helped his neck pain significantly, and he is currently complaining of numbness and tingling sensation in the right upper extremity, the neck pain increases with any neck movement and with any activity, he denies any motor or sensory deficit he denies any change in her bowel movements or urination he denies any fever or night sweats, he continued to use Motrin 6-800 mg every 8 hours when necessary, he denies any side effect of the medication, Objective - Vital Signs Vital signs: Vital Signs Temp Pulse 100 11/07/18 14:23 Resp 16 11/07/18 14:23 BP 128/76 11/07/18 14:23 Pulse Ox 98 11/07/18 14:23 Intake & Output 11/06/18 11/07/18 11/07/18 18:59 06:59 18:59 Weight 111.13 kg - Exam Physical Examinations : -Constitutiona : Cooperative , not in acute distress . -HEENT : nech : supple , no Lymphadenopathy , normal thyroid size . eyes : no ptosis , no icterus, no photophobia . - neurologic : Cranial nerve II to XII intact , no focal neurological deffecit . -psychatric : alert , oriented X 3 , appropriate affect , intact judgment and insight . -Lymphatic : no Lymphadenopathy . - musculoskeltal : Cervical Spine motor stregnth in the deltoid and biceps, normal right side , normal Left side motor stregnth biceps and the wrist extensors normal right side ,normal left side . motor stregnth in the triceps muscle . normal Right side , normal Left side deep tendon reflexes normal at the biceps , normal at Brachioradialis , normal at triceps. cervical facet loading test: Negative Bilaterally Spurling test positive right side. Neck distraction test positive right side. Todd sign positive right. Lumber spine moter stegnth lower extremities ,thigh and legs 5/5 Right side , 5/5 Left side Assessment and Plan Plan: Assessment and plan= cervical radiculopathy, cervical degenerative disc disease. Patient could benefit from cervical epidural steroid injection at C7-T1,(right paramedian approach ) Time with Patient: Less than 30 PQRS Measure Charge Sheet Measure #130: Documentation of Current Meds in Medical Chart: Patient's medications documented in chart Measure #226: Tobacco Use: Screen & Cessation Intervention: Pt not a tobacco user Measure #111: Pneumonia Vaccination: Pneumococcal vaccine NOT administered or previously given Measure #47: Advance Care Plan: Advance care planning discussed & documented, pt chose/unable to give Measure #412: Opioid Treatment Agreement: No documentation of signed opioid treatment agreement Measure #408: Opioid Therapy Follow-up Evaluation: Patient had NO f/u eval minimum every 3 months during opioid therapy Measure #317: Preventitive Care & Scrn High Bld Press & F/U: Normal blood pressure, f/u not required Measure #128: Body Mass Index (BMI) Screening & Follow-up: BMI documented ABOVE normal parameters - f/u documented Measure #131: Pain Assessment & Follow-up: Pain positive & plan documented, Fol low-up scheduled Measure #431: Unhealthy Alcohol Use Preventative Care & Scrn: Patient not identified as an unhealthy alcohol user PQRS Narrative: Smoking Status Never smoker Blood Pressure 128/76 Pain Intensity [Bilateral 8 Posterior Neck] Scale Used Numeric (1 - 10) Hx Alcohol Use (MH) No Home Medications: Ambulatory Orders Pravastatin Sodium [Pravachol] 40 mg PO HS 07/23/13 Omeprazole [PriLOSEC] 20 mg PO HS 10/18/13 Ascorbic Acid [Vitamin C] 500 mg PO DAILY 11/13/15 Cholecalciferol [Vitamin D3] 1,000 unit PO DAILY 11/13/15 Multivitamin [Men's Multi-Vitamin] 1 tab PO DAILY 11/13/15 Ibuprofen [Motrin] 600 mg PO Q8HR PRN #60 tab 01/13/16 Controlled Substance Measures - Controlled Substance Measures Is patient prescribed a controlled substance at discharge?: No
== END ==
LOC: PNWHC3 14:15
PROVIDERS: ATTEND Specialist
DX: M50.13 Cervical disc disorder with radiculopathy, cervicothoracic region (principal); Z79.899 Other long term (current) drug therapy; Z79.1 Long term (current) use of non-steroidal anti-inflammatories (NSAID)
CPT/HCPCS: 99211

== ENCOUNTER 2018-11-09 07:09 | Day surgery (SDC) | payer BC, OTHER ==
[2018-11-09 07:53] VITALS: RESP 16; TEMP 97.5
[2018-11-09] MEDS ORDERED: LIDOCAINE 1% 20 ML VIAL (10MG/ML) FOR IV START INTRAPLEUR ONE (07:53)
--- NOTE | 2018-11-09 08:57 | P.PCN ---
Date of Procedure: 11/09/18 Procedure(s) Performed: PREOPERATIVE DIAGNOSIS: Cervical radiculopathy Cervical degenerative disc disease POSTOPERATIVE DIAGNOSIS: Cervical radiculopathy Cervical degenerative disc disease PROCEDURE Cervical Epidural steroid injection under fluoroscopic guidance at the C7-T1 interspace. ANESTHESIA: Local with 1% lidocaine 3 ml and moderate sedation EBL: Minimal PROCEDURE INDICATION: The patient with cervical radicular symptoms unresponsive to conservative treatment. He has a positive results previous cervical epidurals. PROCEDURE DESCRIPTION / TECHNIQUE: The patient was seen and identified in the preoperative area. Risks, benefits, complications including but not limited to infections ,bleeding ,allergic reaction to the medications ,nerve damage and incomplete pain relief, and alternatives were discussed with the patient. The patient agreed to proceed with the procedure and signed the consent. IV was started, and vital signs were stable. Patient was taken to the OR and time out was completed. The patient was placed in the prone position on procedure table and a pillow was placed under the chest area.. The cervical area was prepped and draped in the usual sterile fashion. Conscious sedation was used during the procedure to decrease patients anxiety. Vital signs was monitered during the entire procedure. Using anterior-posterior fluoroscopy, the C7-T1 interlaminar space was identified and the skin over this site was marked and then infiltrated with 1% lidocaine subcutaneously. Subsequently, a 20-gauge Tuohy epidural needle was inserted and advanced toward the epidural space using the loss of resistance technique and guided by AP and lateral fluoroscopy. The correct needle position in the epidural space was verified with the injection of contrast and observing an excellent epidurogram with the epidural spread of the dye, after negative aspiration for blood and CSF and in the absence of paresthesias. Again after negative aspiration, a 3 ml mixture containing 0 mg of Dexamethasone and 2 cc of preservative free NS was injected. Needle was withdrawn intact, skin was cleansed, and bandages were applied. Images were saved to the chart. COMPLICATIONS: None DISPOSITION / PLANS: The patient was placed in a supine position and transferred to the recovery area in a stable condition for observation. There was no evidence of lower extremity motor or sensory deficit after the procedure. Patient was discharged from the recovery room after meeting discharge criteria. Home discharge instructions were given to the patient by the staff. The patient was reexamined prior to discharge. The patient will follow up for repeat procedure in 3 months if his pain returns.
[2018-11-09] MEDS ORDERED: IV FLUID CONTINUATION 1,000 ML IV ONE (09:03)
[2018-11-09 09:27] VITALS: BP 128/64; PULSE 81
--- NOTE | 2018-11-09 10:28 | FL ---
EXAMINATION TYPE: FL guided pain mgmt statistic DATE OF EXAM: 11/09/2018 HISTORY: Pain Cervical epidural injection was performed. Along seconds of fluoroscopic time was provided by the de partment of radiology. Images were provided for documentation purposes.
== END 2018-11-09 09:34 | disposition home or self-care (01) ==
LOC: ORPAIN 07:09
PROVIDERS: ATTEND Student in an Organized Health Care Education/Training Program
DX: M50.13 Cervical disc disorder with radiculopathy, cervicothoracic region (principal); Z79.899 Other long term (current) drug therapy
CPT/HCPCS: 62321; 99152; J2250; J1100; J3010; Q9966

== ENCOUNTER 2019-02-07 07:18 | Day surgery (SDC) | payer BC, OTHER ==
[2019-02-07 07:39] VITALS: TEMP 97.6
[2019-02-07] MEDS ORDERED: LACTATED RINGERS 1,000 ML IV SCH (07:44)
[2019-02-07] MEDS ORDERED: LACTATED RINGERS 1,000 ML IV ONE (07:44)
--- NOTE | 2019-02-07 08:55 | P.PCN ---
Date of Procedure: 02/07/19 Procedure(s) Performed: PROCEDURE 1. Cervical epidural steroid injection under fluoroscopic guidance, C7-T1 2. Cervical epidurogram. PREOPERATIVE DIAGNOSIS: 1- Cervical radiculopathy. 2- cervical degenerative disc disease POSTOPERATIVE DIAGNOSIS: : 1- Cervical radiculopathy. 2-cervical degenerative disc disease ANESTHESIA: Local anesthesia with 1% lidocaine and IV sedation with Versed 2 mg and Fentanyl 200 mcg. EBL 0 PROCEDURE INDICATION: The patient with neck pain and radiculitis unresponsive to conservative treatment consents for procedure. PROCEDURE DESCRIPTION / TECHNIQUE: The patient was seen and identified in the preoperative area. Risks, benefits, complications, including but not limited to infections ,bleeding , allergic reactions to the medications ,and not complete pain releife, and alternatives were discussed with the patient, the patient agreed to proceed with the procedure and signed the consent. Patient was taken to the OR and time out was completed. The patient was placed in the prone position on the procedure table. A pillow was placed under the patients chest to increase the cervical interlaminar space. The cervical area was prepped and draped in the usual sterile fashion. Vital signs were closely monitored during the procedure. Conscious sedation was used during the procedure to decrease patients anxiety. Using anterior-posterior fluoroscopy, the C7-T1 interlaminar space was identified and the skin over this site was marked and then infiltrated with 1% lidocaine subcutaneously. Subsequently, a 20-gauge 3-1/2-inch Tuohy epidural needle was inserted and advanced toward the epidural space by means of the ``hanging-drop technique and guided by AP and lateral fluoroscopy. The correct needle position in the epidural space was verified with the injection of 2 mL of the water soluble contrast dye Isovue-200 and observing an excellent epidur ogram with the epidural spread of the dye, after negative aspiration for blood and CSF and in the absence of paresthesias. Again after negative aspiration, mixture containing 20 mg Dexamethasone and 2 ml of preservative-free normal saline injected and a washout of epidurogram was seen. Needle was withdrawn intact, skin was cleansed, and bandages were applied. Complications= none. Disposition= patient was placed in supine position and transferred to the recovery room area in stable condition and there was no evidence of upper or lower extremity motor or sensory deficit after the procedure patient was discharged from recovery room after discharge criteria met and home discharge instructions was given by the staff and patient will follow with the pain clinic in 2-4 weeks
[2019-02-07 09:01] VITALS: RESP 16
[2019-02-07] MEDS ORDERED: IV FLUID CONTINUATION 1,000 ML IV ONE (09:16)
[2019-02-07 09:25] VITALS: BP 105/69; PULSE 67
--- NOTE | 2019-02-07 09:28 | FL ---
EXAMINATION TYPE: FL guided pain mgmt statistic DATE OF EXAM: 02/07/2019 CLINICAL HISTORY: Neck pain. TECHNIQUE: Fluoroscopy. COMPARISON: None. FINDINGS: Fluoroscopic guidance was provided during pain relief procedure performed by Dr. Mccoy . A total of 9 seconds of fluoroscopic time was utilized during the procedure and single spot fluoro scopic image is acquired. Single image acquired shows needle localization at cervicothoracic junctio n.. IMPRESSION: As Above.
== END 2019-02-07 09:30 | disposition home or self-care (01) ==
LOC: ORPAIN 07:18
PROVIDERS: ATTEND Specialist
DX: M50.10 Cervical disc disorder with radiculopathy, unspecified cervical region (principal)
CPT/HCPCS: 62321; J2250; J1100; J3010; Q9966; 99152

== ENCOUNTER → 2019-07-18 | Outpatient (CLI) | payer BC, OTHER ==
--- NOTE | 2019-07-18 13:48 | P.PAINPG ---
Subjective Progress Note Date: 07/18/19 THIS ENCOUNTER WAS PERFORMED A TELEMEDICINE VISIT VIA SECURE TWO-WAY VIDEO AND AUDIO TO MINIMIZE RISK AND TRANSMISSION OF COVID-19. This is a follow visit for this 54 year old male with a chronic history of severe neck pain with radiation to the upper extremity, patient diagnosed with cervical radiculopathy and cervical disc disease multilevel, patient had multiple cervical epidural steroid injections done previously ,which helped his neck pain significantly, last done on 02/07/2019. he states that he obtained almost 100% relief lasting approximately 2 months. He is currently complaining of neck pain, which does not radiate, described as sharp, rated as 9/10, worse with turning his neck to one side and looking up, better with proper placement of pillow and [id number] medications like Motrin. he does indoor to headaches associated with neck pain. 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 He is scheduled to see Dr. Johnson at [facility] next month. He continues to do neck stretching exercises. The pain used to radiate into right upper extremity and was associated with numbness in right upper extremity, however the symptoms have improved. He does endorse occasional numbness and tingling in right thumb. he denies weakness in upper extremities. he continues to use Motrin 600-800 mg every 8 hours when necessary, he denies any side effect of the medication, Review of systems is negative for chest pain, shortness of breath, new onset weakness, numbness/tingling, abdominal pain, malaise, fever, night sweats, chills, homicidal or suicidal ideation, or bowel or bladder incontinence. Objective Physical exam: Constitutional: Healthy appearing, well developed, alert, in no acute distress Psychiatric: Judgement and insight intact, alert and oriented Mood and Affect: mood normal, affect appropriate Head and Face: Inspection: normocephalic atraumatic, extraocular movement intact Respiratory: Breathing non-labored nondyspneic Skin: Head and Neck: skin with no lesions or rash Gait: able to ambulate without assistance Neurologic: sensation grossly intact per patient MSK: mildly limited range of motion of neck pain lateral flexion. Per patient, no tenderness to palpation of neck Assessment and Plan Plan: Assessment and plan= cervical radiculopathy, cervical degenerative disc disease. Patient has had excellent benefit from prior cervical epidural steroid injections in the past. Patient could benefit from repeat cervical epidural steroid injection at C7-T1,(right paramedian approach )him a we will schedule this Patient was counseled on continuation of neck stretching and strengthening exercises PQRS Measure Charge Sheet PQRS Narrative: Smoking Status Never smoker Pain Intensity [Neck] 9 Scale Used Numeric (1 - 10) Hx Alcohol Use (MH) No Home Medications: Ambulatory Orders Pravastatin Sodium [Pravachol] 40 mg PO HS 07/23/13 Omeprazole [PriLOSEC] 20 mg PO HS 10/18/13 Ascorbic Acid [Vitamin C] 500 mg PO DAILY 11/13/15 Cholecalciferol [Vitamin D3] 1,000 unit PO DAILY 11/13/15 Ibuprofen [Motrin] 600 mg PO Q8HR PRN #60 tab 01/13/16 Cyanocobalamin (Vitamin B-12) [Vitamin B-12] 1,000 mcg PO DAILY 07/13/19 Controlled Substance Measures - Controlled Substance Measures Is patient prescribed a controlled substance at discharge?: No
== END | disposition home or self-care (01) ==
LOC: PNWHC3 07:22
PROVIDERS: ATTEND Anesthesiology
DX: Z53.9 Procedure and treatment not carried out, unspecified reason (principal)

== ENCOUNTER → 2019-08-16 | Day surgery (SDC) | payer BC, OTHER ==
[2019-08-15 09:47] VITALS: BMI 40.7
[~2019-08-16] MED LIST changes: +DEXAMETHASONE SOD PHOSPHATE 10 MG/ML 1 ML VIAL ONE; +IOPAMIDOL M200 10 ML VIAL ONE; +IV FLUID CONTINUATION 700 ML IV ONE; +MIDAZOLAM 2 MG/2 ML VIAL ONE; +fentaNYL (PF) 50 MCG/ML 2 ML AMP ONE
[2019-08-16 06:34] VITALS: RESP 16; TEMP 98
--- NOTE | 2019-08-16 07:10 | P.PCN ---
Date of Procedure: 08/16/19 Procedure(s) Performed: PROCEDURE 1. Cervical epidural steroid injection under fluoroscopic guidance, C7-T1 2. Cervical epidurogram. PREOPERATIVE DIAGNOSIS: 1- Cervical radiculopathy. 2- cervical degenerative disc disease POSTOPERATIVE DIAGNOSIS: : 1- Cervical radiculopathy. 2-cervical degenerative disc disease ANESTHESIA: Local anesthesia with 1% lidocaine and IV sedation with Versed 2 mg and Fentanyl 100 mcg. EBL 0 PROCEDURE INDICATION: The patient with neck pain and radiculitis unresponsive to conservative treatment consents for procedure. PROCEDURE DESCRIPTION / TECHNIQUE: The patient was seen and identified in the preoperative area. Risks, benefits, complications, including but not limited to infections ,bleeding , allergic reactions to the medications ,and not complete pain releife, and alternatives were discussed with the patient, the patient agreed to proceed with the procedure and signed the consent. Patient was taken to the OR and time out was completed. The patient was placed in the prone position on the procedure table. A pillow was placed under the patients chest to increase the cervical interlaminar space. The cervical area was prepped and draped in the usual sterile fashion. Vital signs were closely monitored during the procedure. Conscious sedation was used during the procedure to decrease patients anxiety. Using anterior-posterior fluoroscopy, the C7-T1 interlaminar space was identified and the skin over this site was marked and then infiltrated with 1% lidocaine subcutaneously. Subsequently, a 20-gauge 3-1/2-inch Tuohy epidural needle was inserted and advanced toward the epidural space by means of the ``hanging-drop technique and guided by AP and lateral fluoroscopy. The correct needle position in the epidural space was verified with the injection of 2 mL of the water soluble contrast dye Isovue-200 and observing an excellent epidur ogram with the epidural spread of the dye, after negative aspiration for blood and CSF and in the absence of paresthesias. Again after negative aspiration, mixture containing 20 mg Dexamethasone and 2 ml of preservative-free normal saline injected and a washout of epidurogram was seen. Needle was withdrawn intact, skin was cleansed, and bandages were applied. Complications= none. Disposition= patient was placed in supine position and transferred to the recovery room area in stable condition and there was no evidence of upper or lower extremity motor or sensory deficit after the procedure patient was discharged from recovery room after discharge criteria met and home discharge instructions was given by the staff and patient will follow with the pain clinic in few weeks
[2019-08-16 07:22] VITALS: BP 107/79; PULSE 90
--- NOTE | 2019-08-16 07:32 | FL ---
Fluoroscopy INDICATION: Pain FINDINGS: Fluoroscopy time: 2 seconds. Images obtained: 1. IMPRESSIONS: 1. Documentation of fluoroscopy.
== END ==
LOC: ORPAIN 06:01
PROVIDERS: ATTEND Specialist
DX: M50.10 Cervical disc disorder with radiculopathy, unspecified cervical region (principal); G47.33 Obstructive sleep apnea (adult) (pediatric); K21.9 Gastro-esophageal reflux disease without esophagitis
CPT/HCPCS: 62321; J2250; J1100; J3010; Q9966

== ENCOUNTER → 2019-09-05 | Outpatient (CLI) | payer BC, OTHER ==
--- NOTE | 2019-09-05 13:09 | CONS ---
CONSULTATION DATE OF SERVICE: 09/05/2019 A 54-year-old gentleman who has been evaluated in the Sleep Center for obstructive sleep apnea-hypopnea syndrome. HISTORY OF PRESENT ILLNESS/SLEEP-WAKE EVALUATION: Patient has history of obstructive sleep apnea for 15 years. I did not have any sleep study since that time, significantly changed weight up, it was 190 pounds According to him, when he had a sleep study about 15 years ago, then he increased it to 270 pounds and he decreased it to around 255 pounds. Presently, he is using his machine, but he still snores and wakes up from sleep multiple times, even while using his machine. The machine is old. 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 Consequently his sleep schedule from 8 a.m. until around 2 pm and he gets out of bed around 5 pm. No problems with falling asleep. No TV in bedroom. He usually sleeps on the side position. He wakes up from sleep several times with nocturia and bad dreams. Question of a positive history of hypnagogic hallucinations. No history of cataplexy. [place] Sleepiness Scale is 6. He takes usually 1 nap when it is possible. PAST MEDICAL HISTORY: Positive for headaches, acid reflux, hyperlipidemia, neck problems. PAST SURGICAL HISTORY: Epidural injection with the C4-C5 every 4 months. MEDICATIONS: Omeprazole, pravastatin, vitamin D, Motrin. SOCIAL HISTORY: Negative for smoking. Alcohol consumption rarely. FAMILY HISTORY: Snoring. REVIEW OF SYSTEMS: Multiple awakenings from sleep. PHYSICAL EXAM: gentleman without distress. BP 134/81, HR about 100, RR 16, height 5, 8, weight 255, BMI 38.7, temperature 98.8, oxygen saturation at room air 96%. OROPHARYNX: Moderately low position of soft palate. Wide neck is 17-1/4 inches in circumference. ABDOMEN: Obese. GENERAL: A pleasant patient without any distress. NECK: Supple, no JVD. Thyroid is not palpable. LUNGS: Clear to percussion and to auscultation. Good air exchange. No wheezing or rhonchi. HEART: S1, S2 regular. No murmurs, gallops, or rubs. EXTREMITIES: No clubbing or cyanosis. DROP FORGE HAND: Awake, alert, and oriented X3. Cranial nerves 2 to 7 intact. There is no fasciculation or atrophy. noted. No focal deficits observed. IMPRESSION: 1. Loud snoring. 2. History of obstructive sleep apnea-hypopnea syndrome for 15 years. Small oropharyngeal air space, white neck, obstructive sleep apnea-hypopnea syndrome. 3. Obesity, BMI 38.7. 4. History of restless leg symptoms. 5. Headaches. 6. Hyperlipidemia. 7. Neck problems: Epidural injections to the C4-C5 area every 4 months. PLAN: 1. Home sleep apnea test for evaluation of patient's breathing during sleep. 2. Polysomnography for evaluation of patient's breathing during sleep. 3. CPAP/BiPAP titration if sleep study confirms obstructive sleep apnea-hypopnea syndrome. 4. Preferable position during sleep on the side. No driving if patient feels any sleepiness. 5. I will see patient for follow up visit to explain results of testing and following plan. Sincerely, Mart Dong MD, PhD, FAASM Diplomat of [employer] [employer] [place] [employer] Clinical Outcomes Manager of [facility] [place] MMODL / IJN: [id number] /
== END | disposition home or self-care (01) ==
LOC: SLEEP 11:27
PROVIDERS: ATTEND Internal Medicine
DX: G47.33 Obstructive sleep apnea (adult) (pediatric) (principal); E66.9 Obesity, unspecified; Z68.38 Body mass index [BMI] 38.0-38.9, adult; R51 Headache; E78.5 Hyperlipidemia, unspecified; Z87.448 Personal history of other diseases of urinary system
CPT/HCPCS: 99211

== ENCOUNTER 2019-12-20 06:02 | Day surgery (SDC) | payer BC, OTHER ==
[2019-12-18 10:47] VITALS: BMI 35.2
[2019-12-20 06:27] VITALS: TEMP 97.4
[2019-12-20] MEDS ORDERED: LACTATED RINGERS 1,000 ML IV SCH (06:30)
[2019-12-20] MEDS ORDERED: MIDAZOLAM 2 MG/2 ML VIAL ONE (06:55)
[2019-12-20] MEDS ORDERED: fentaNYL (PF) 50 MCG/ML 2 ML AMP ONE (06:55)
[2019-12-20] MEDS ORDERED: IOPAMIDOL M200 10 ML VIAL ONE (06:55)
[2019-12-20] MEDS ORDERED: DEXAMETHASONE SOD PHOSPHATE 10 MG/ML 1 ML VIAL ONE (06:55)
--- NOTE | 2019-12-20 07:12 | P.PCN ---
Date of Procedure: 12/20/19 Description of Procedure: PROCEDURE 1. Cervical epidural steroid injection under fluoroscopic guidance, C6-C7 2. Cervical epidurogram. PREOPERATIVE DIAGNOSIS: Cervical radiculopathy POSTOPERATIVE DIAGNOSIS: Cervical radiculopathy Imaging: Fluoroscopy was used, images where saved to the medical record ANESTHESIA: Local anesthesia with 1% lidocaine and (IV conscious sedation with 2 mg of Versed and 100 g of fentanyl) PROCEDURE DESCRIPTION / TECHNIQUE: The patient was seen and identified in the preoperative area. Risks, benefits, and alternatives were discused with the patient and the patient has consented to the procedure. Risks of the procedure include potential for bleeding, infection, nerve damage, and incomplete pain relief discussed with the patient. All questions were answered for the patient Patient was taken to the OR and time out was completed. The patient was placed in the prone position on the procedure table. A pillow was placed under the patients chest to increase the cervical interlaminar space. The cervical area was prepped and draped in the usual sterile fashion. Vital signs were closely monitored during the procedure. Using anterior-posterior fluoroscopy, the C6-C7 interlaminar space was identified and the skin over this site was marked and then infiltrated with 1% lidocaine subcutaneously. Subsequently, a 20-gauge 3-1/2-inch Tuohy epidural needle was inserted and advanced toward the epidural space by means of the aeph-qe-ipvpshpqet technique and guided by AP and lateral fluoroscopy. The correct needle position in the epidural space was verified with the injection of 1 mL of the water soluble contrast dye Isovue-180 and observing an excellent epidurogram with the epidural spread of the dye, after negative aspiration for blood and CSF and in the absence of paresthesias. Again after negative aspiration, a mixture containing 10 mg Dexamethasone and 2 ml of preservative- free normal saline injected and a washout of epidurogram was seen. Needle was withdrawn intact, skin was cleansed, and bandages were applied. Complications: none. Disposition: patient was placed in supine position and transferred to the recovery room area in stable condition and there was no evidence of upper or lower extremity motor or sensory deficit after the procedure patient was discharged from recovery room after discharge criteria met and home discharge instructions was given by the staff and patient will follow with the pain as directed.
[2019-12-20] MEDS ORDERED: IV FLUID CONTINUATION 1,000 ML IV ONE (07:16)
[2019-12-20 07:20] VITALS: RESP 18
[2019-12-20 07:28] VITALS: BP 110/69; PULSE 64
--- NOTE | 2019-12-20 10:54 | FL ---
Fluoroscopy HISTORY: Pain 6 seconds fluoroscopy time supplied to the referring clinician. 1 intraoperative C-arm images docume nt the procedure. See dictated report from anesthesia.
== END 2019-12-20 07:45 | disposition home or self-care (01) ==
LOC: ORPAIN 06:02
PROVIDERS: ATTEND Hospitalist
DX: M50.10 Cervical disc disorder with radiculopathy, unspecified cervical region (principal); M79.18 Myalgia, other site
CPT/HCPCS: 62321; J2250; J1100; J3010; Q9966; 99152

== ENCOUNTER → 2020-01-10 | Outpatient (CLI) | payer BC, OTHER ==
--- NOTE | 2020-01-10 15:56 | SFUN ---
SLEEP CENTER FOLLOW UP NOTE DATE OF SERVICE: 01/10/2020 This patient is a 54-year-old gentleman who has been followed in Sleep Center for treatment of obstructive sleep apnea-hypopnea syndrome. Recently the patient had a diagnostic sleep study which showed severe sleep apnea. Then the patient had CPAP titration and received a BiPAP unit. Today is his first visit after he started to use BiPAP. Patient feels better while using BiPAP. Sleep is better. He feels better during the day. He has some discomfort related to nasal pillows in the nose. [place] Sleepiness Scale is 6. I checked his BiPAP unit. Pressure is 10/5 cm of water. Usage is 29/30 nights, 23/30 nights for more than 4 hours. Average usage is 5 hours per night. Leak is 13 L/minute, which is acceptable. Apnea-hypopnea index is 4.0, which is normal. MEDICATIONS: Pravastatin, vitamin D. PHYSICAL EXAMINATION: GENERAL: A pleasant patient in no distress. VITAL SIGNS: BP 136/84, HR 73, RR 15, weight 235.2 pounds, temperature 99, oxygen saturation at room air 96%. HEENT: PERRLA, EOMI. Evaluation of oropharynx showed tongue protrudes midline. Low position of soft palate. NECK: Supple. No JVD. Thyroid is not palpable. LUNGS: Clear to percussion and to auscultation. Good air exchange. No wheezing or rhonchi. HEART: S1, S2 regular. No murmurs, gallops or rubs. ABDOMEN: Soft, nontender. No organomegaly. Bowel sounds are heard in all four quadrants. EXTREMITIES: No clubbing or cyanosis. VEHICLE ASSEMBLY INSPECTOR: Awake, alert, and oriented X3. Cranial nerves 2 to 7 intact. There is no fasciculation or atrophy. noted. No focal deficits observed. IMPRESSION: 1. Obstructive sleep apnea-hypopnea syndrome. Patient demonstrated good compliance with treatment, benefitting from treatment. Normal respiration on BiPAP. Severe sleep apnea during diagnostic sleep test. 2. Some discomfort with nasal pillows. 3. Obesity. 4. Episodes of headaches. 5. Hyperlipidemia. 6. Neck problems. PLAN: 1. The patient should try nasal pillows of a different size. 2. I described to the patient the possibility of using gel, [place], to the nostrils with the nasal pillows. 3. Patient will continue to use PAP equipment every night for the whole night. 4. Sleep hygiene with regular time in bed for at least 7-1/2 to 8 hours. 5. Precautions related to driving. No driving if feeling sleepiness. 6. I will maintain all necessary prescription for PAP supplies including mask, tube, filters. 7. Watching weight. 8. Follow-up visit in 6 months, or earlier if patient has any problems. Thank you very much for allowing me to participate in the management of your patient. Sincerely, Mart Dong MD, PhD, FAASM Diplomat of [employer] [employer] Steward/Stewardess Room of [facility] [place] MMODL / IJN: [id number] /
== END | disposition home or self-care (01) ==
LOC: SLEEP 10:48
PROVIDERS: ATTEND Internal Medicine
DX: G47.33 Obstructive sleep apnea (adult) (pediatric) (principal); Z99.89 Dependence on other enabling machines and devices; E66.9 Obesity, unspecified; E78.5 Hyperlipidemia, unspecified; R51.9 Headache, unspecified; M53.82 Other specified dorsopathies, cervical region

== ENCOUNTER → 2020-06-24 | Day surgery (SDC) | payer BC, OTHER ==
[2020-06-19 15:37] VITALS: BMI 39.1
[~2020-06-24] MED LIST changes: -IV FLUID CONTINUATION 700 ML IV ONE; +IV FLUID CONTINUATION 800 ML IV ONE
[2020-06-24 07:03] VITALS: TEMP 97.5
--- NOTE | 2020-06-24 07:31 | P.PCN ---
Date of Procedure: 06/24/20 Procedure(s) Performed: PROCEDURE 1. Cervical epidural steroid injection under fluoroscopic guidance, C7-T1 2. Cervical epidurogram. PREOPERATIVE DIAGNOSIS: 1- Cervical radiculopathy. 2- cervical degenerative disc disease POSTOPERATIVE DIAGNOSIS: : 1- Cervical radiculopathy. 2-cervical degenerative disc disease ANESTHESIA: Local anesthesia with 1% lidocaine and IV sedation with Versed 3 mg and Fentanyl 100 mcg. EBL 0 PROCEDURE INDICATION: The patient with neck pain and radiculitis unresponsive to conservative treatment consents for procedure. PROCEDURE DESCRIPTION / TECHNIQUE: The patient was seen and identified in the preoperative area. Risks, benefits, complications, including but not limited to infections ,bleeding , allergic reactions to the medications ,and not complete pain releife, and alternatives were discussed with the patient, the patient agreed to proceed with the procedure and signed the consent. Patient was taken to the OR and time out was completed. The patient was placed in the prone position on the procedure table. A pillow was placed under the patients chest to increase the cervical interlaminar space. The cervical area was prepped and draped in the usual sterile fashion. Vital signs were closely monitored during the procedure. Conscious sedation was used during the procedure to decrease patients anxiety. Using anterior-posterior fluoroscopy, the C7-T1 interlaminar space was identified and the skin over this site was marked and then infiltrated with 1% lidocaine subcutaneously. Subsequently, a 20-gauge 3-1/2-inch Tuohy epidural needle was inserted and advanced toward the epidural space by means of the ``hanging-drop technique and guided by AP and lateral fluoroscopy. The correct needle position in the epidural space was verified with the injection of 2 mL of the water soluble contrast dye Isovue-200 and observing an excellent epidur ogram with the epidural spread of the dye, after negative aspiration for blood and CSF and in the absence of paresthesias. Again after negative aspiration, mixture containing 20 mg Dexamethasone and 2 ml of preservative-free normal saline injected and a washout of epidurogram was seen. Needle was withdrawn intact, skin was cleansed, and bandages were applied. Complications= none. Disposition= patient was placed in supine position and transferred to the recovery room area in stable condition and there was no evidence of upper or lower extremity motor or sensory deficit after the procedure patient was discharged from recovery room after discharge criteria met and home discharge instructions was given by the staff and patient will follow with the pain clinic in few weeks
[2020-06-24 08:08] VITALS: BP 107/76; PULSE 67; RESP 20
--- NOTE | 2020-06-24 08:44 | FL ---
Fluoroscopy INDICATION: Pain FINDINGS: Fluoroscopy time: 1 seconds. Images obtained: 1. IMPRESSIONS: 1. Documentation of fluoroscopy.
== END ==
LOC: ORPAIN 06:25
PROVIDERS: ATTEND Specialist
DX: M50.10 Cervical disc disorder with radiculopathy, unspecified cervical region (principal)
CPT/HCPCS: 62321; J2250; J1100; J3010; Q9966

== ENCOUNTER → 2020-08-28 | Outpatient (CLI) | payer BC, OTHER ==
--- NOTE | 2020-08-28 14:06 | SFUN ---
SLEEP CENTER FOLLOW UP NOTE DATE OF SERVICE: 08/28/2020 55-year-old gentleman has been followed in Sleep Center for treatment of obstructive sleep apnea-hypopnea syndrome. Patient continued to use his BiPAP equipment every night. He has had 1 episode when he had bloody discharges from the nose. I discussed with him position of the machine. He told machine staying lower than his head during the sleep. [place] Sleepiness Scale today is 10, which is borderline. I checked his BiPAP unit. Pressure is 10/5 cm of water. Usage is 100% of nights. 26 out of 30 nights for more than 4 hours. Leak is 7 L/minute which is normal. Apnea- hypopnea index reading for the last months 11.3, which includes apnea index 9.5. The patient has Brevida medium lavage nasal pillow mask. MEDICATIONS: Pravastatin, omeprazole, and vitamin D. PHYSICAL EXAMINATION: GENERAL: Patient in no distress. BP 111/76, HR 84, RR 15, height 5 feet 7-1/2 inches, weight 270, body mass index 41.6. Temperature 98.5, oxygen saturation at room air 96%. Oropharynx low position of soft palate. NECK: Supple, no JVD. Thyroid is not palpable. LUNGS: Clear to percussion and to auscultation. Good air exchange. No wheezing or rhonchi. HEART: S1, S2 regular. No murmurs, gallops, or rubs. ABDOMEN: Obese. Soft and nontender. Bowel sounds are present. No organomegaly appreciated. EXTREMITIES: No clubbing or cyanosis. EMBRYOLOGY PROFESSOR: Awake, alert, and oriented X3. Cranial nerves 2 to 7 intact. There is no fasciculation or atrophy. noted. No focal deficits observed. IMPRESSION: 1. Obstructive sleep apnea-hypopnea syndrome. The patient demonstrated good compliance with treatment benefitting from treatment, apnea-hypopnea index slightly increased. 2. Obesity. 3. History is episodes of headaches. 4. One episode of bloody discharges when using CPAP. 5. Neck problems. PLAN: 1. I adjusted BiPAP unit to the Auto regimen with inspiratory maximal pressure of 12 and minimal expiratory pressure 4. 2. I taught the patient how to adjust humidity and humidifier and in the tube. Presently humidity level of 4. 3. Sleep hygiene with regular time in bed for at least 7-1/2 to 8 hours. 4. Precautions related to driving. No driving if feeling sleepiness. 5. I will maintain all necessary prescription for PAP supplies including mask, tube, filters. 6. Watching weight. 7. Follow-up visit in 6 months or earlier if patient has any problems. I spent with the patient and documentation more than 30 minutes. Thank you very much for allowing me to participate in management of your patient. Sincerely, Mart Dong MD, PhD, FAASM Diplomat of [place] [employer] Sleep Medicine Board of [place] [employer] Bale Breaker Operator of [facility] [place] MMODL / SONDRAN: [id number] /
== END ==
LOC: SLEEP 10:08
PROVIDERS: ATTEND Internal Medicine
DX: G47.33 Obstructive sleep apnea (adult) (pediatric) (principal); E66.9 Obesity, unspecified; M48.8X2 Other specified spondylopathies, cervical region; T85.838A Hemorrhage due to other internal prosthetic devices, implants and grafts, initial encounter; Z86.69 Personal history of other diseases of the nervous system and sense organs; Z68.41 Body mass index [BMI] 40.0-44.9, adult

== ENCOUNTER → 2020-09-15 | Outpatient (CLI) | payer BC, OTHER ==
[2020-09-15 08:16] VITALS: BP 119/86; PULSE 74; RESP 18; TEMP 98.8
--- NOTE | 2020-09-15 08:34 | P.PN ---
Subjective Progress Note Date: 09/15/20 This is a 55-year-old gentleman with history of neck pain with radiation to the right arm and good response to cervical epidural steroid injections. The patient's right arm pain has been getting better and the numbness also has been improving in his right hand. He has some pain with the range of motion of the cervical spine for right and left rotation especially. Patient denies new-onset weakness, bowel/bladder incontinence, or any other signs or symptoms of cauda equina syndrome. There are no signs of acute intoxication, and no indications of medication diversion or overuse. In addition to above, 13-point review of systems is also negative for chest pain, shortness of breath, changes in vision, changes in hearing, new onset weakness, abdominal pain, diarrhea, extreme fatigue, malaise, fever, skin changes, homicidal or suicidal ideation, or bowel or bladder incontinence. Vital Signs: Reviewed in EMR Gen: AAOx3, NAD HEENT: PERRLA,hearing grossly normal Pulm: resp unlabored Neck: supple, trachea midline Neuro exam of the upper extremities: Normal muscle strength bilaterally Straight leg raising test: Maynor's test: Range of motion of the cervical spine: Painful the extreme range of motion for right and left rotation Facet loading test: Tenderness in the paravertebral musculature: Positive in the cervical paravertebral musculature Neuro: CN II-XII grossly intact, Imaging: Reviewed in EMR/chart Assessment: Cervical spondylosis without adenopathy Right cervical radiculopathy Plan: 1. Explanation: Opioid and psychological risk scores were reviewed. Diagnoses, prognoses, and multiple treatment options including but not limited to physical therapy, interventional therapies, adjuvant medical therapies, narcotic medication therapies, and surgery were discussed with the patient and all questions were answered to the patient's satisfaction. 2. Opioid agreement: Signed with the patient and the patient is warned not to use opioids while driving or before driving and not to combine opioids with benzodiazepines or alcohol. 3. Counseling: The patient was counseled extensively on SMOKING CESSATION, BODY MASS INDEX, EXERCISE. Specifically, the patient was instructed regarding the importance of smoking cessation, obesity, and exercise in the context of both chronic pain and overall health. 4. Procedures: Scheduled for cervical epidural steroid injection with the pain is severe enough however the patient has tolerated this point. The patient also may benefit from getting a diagnostic cervical medial branch block for levels see 56 and 7 bilaterally however his body habitus may impede us from doing the C7 level. 5. Consultations: None 6. Investigations: None 7. Medications: The patient continues to take [id number] medication for his pain 8. Disposition: The patient will give us a call in his pain gets worse and then we'll schedule him for cervical epidural steroid injection. 9. Maps were reviewed and were appropriate. Objective - Vital Signs Vital signs: Vital Signs Temp 98.8 F 09/15/20 08:12 Pulse 74 09/15/20 08:12 Resp 18 09/15/20 08:12 BP 119/86 09/15/20 08:12 Pulse Ox 94 L 09/15/20 08:12
== END ==
LOC: PNWHC3 07:52
PROVIDERS: ATTEND Anesthesiology
DX: M47.22 Other spondylosis with radiculopathy, cervical region (principal)
CPT/HCPCS: 99211

== ENCOUNTER 2020-12-18 06:15 | Day surgery (SDC) | payer BC, OTHER ==
[2020-12-17 10:08] VITALS: BMI 35.2
[~2020-12-18 06:15] MED LIST changes: -DEXAMETHASONE SOD PHOSPHATE 10 MG/ML 1 ML VIAL ONE; -IOPAMIDOL M200 10 ML VIAL ONE; -IV FLUID CONTINUATION 800 ML IV ONE; -MIDAZOLAM 2 MG/2 ML VIAL ONE; -fentaNYL (PF) 50 MCG/ML 2 ML AMP ONE
[2020-12-18 06:49] VITALS: TEMP 97.8
[2020-12-18] MEDS ORDERED: LACTATED RINGERS 1,000 ML IV ONE (06:50)
[2020-12-18] MEDS ORDERED: fentaNYL (PF) 50 MCG/ML 2 ML AMP ONE (07:03)
[2020-12-18] MEDS ORDERED: DEXAMETHASONE SOD PHOSPHATE 10 MG/ML 1 ML VIAL ONE (07:03)
[2020-12-18] MEDS ORDERED: MIDAZOLAM 2 MG/2 ML VIAL ONE (07:03)
[2020-12-18] MEDS ORDERED: IOPAMIDOL M200 10 ML VIAL ONE (07:03)
--- NOTE | 2020-12-18 07:21 | P.PCN ---
Date of Procedure: 12/18/20 Procedure(s) Performed: PROCEDURE 1. Cervical epidural steroid injection under fluoroscopic guidance, C7-T1 2. Cervical epidurogram. PREOPERATIVE DIAGNOSIS: 1- Cervical radiculopathy. 2- cervical degenerative disc disease POSTOPERATIVE DIAGNOSIS: : 1- Cervical radiculopathy. 2-cervical degenerative disc disease ANESTHESIA: Local anesthesia with 1% lidocaine and IV sedation with Versed 2 mg, and Fentanyl 100 mcg. EBL 0 PROCEDURE INDICATION: The patient with neck pain and radiculitis unresponsive to conservative treatment consents for procedure. PROCEDURE DESCRIPTION / TECHNIQUE: The patient was seen and identified in the preoperative area. Risks, benefits, complications, including but not limited to infections ,bleeding , allergic reactions to the medications ,and not complete pain releife, and alternatives were discussed with the patient, the patient agreed to proceed with the procedure and signed the consent. Patient was taken to the OR and time out was completed. The patient was placed in the prone position on the procedure table. A pillow was placed under the patients chest to increase the cervical interlaminar space. The cervical area was prepped and draped in the usual sterile fashion. Vital signs were closely monitored during the procedure. Conscious sedation was used during the procedure to decrease patients anxiety. Using anterior-posterior fluoroscopy, the C7-T1 interlaminar space was identified and the skin over this site was marked and then infiltrated with 1% lidocaine subcutaneously. Subsequently, a 20-gauge 3-1/2-inch Tuohy epidural needle was inserted and advanced toward the epidural space by means of the ``hanging-drop technique and guided by AP and lateral fluoroscopy. The correct needle position in the epidural space was verified with the injection of 2 mL of the water soluble contrast dye Isovue-200 and observing an excellent epidu rogram with the epidural spread of the dye, after negative aspiration for blood and CSF and in the absence of paresthesias. Again after negative aspiration, mixture containing 20 mg Dexamethasone and 2 ml of preservative-free normal saline injected and a washout of epidurogram was seen. Needle was withdrawn intact, skin was cleansed, and bandages were applied. Complications= none. Disposition= patient was placed in supine position and transferred to the recovery room area in stable condition and there was no evidence of upper or lower extremity motor or sensory deficit after the procedure patient was discharged from recovery room after discharge criteria met and home discharge instructions was given by the staff and patient will follow with the pain clinic in few weeks
[2020-12-18 07:27] VITALS: RESP 14
[2020-12-18] MEDS ORDERED: IV FLUID CONTINUATION 1,000 ML IV ONE (07:29)
--- NOTE | 2020-12-18 07:41 | FL ---
Fluoroscopy History: Cervical Epid Ster Inj Cervical Epid Ster Inj, 9 sec of fluoro time, [address] Mccoy
[2020-12-18 07:46] VITALS: BP 121/77; PULSE 96
== END 2020-12-18 07:47 | disposition home or self-care (01) ==
LOC: ORPAIN 06:15
PROVIDERS: ATTEND Specialist
DX: M50.10 Cervical disc disorder with radiculopathy, unspecified cervical region (principal)
CPT/HCPCS: 62321; J2250; J1100; J3010; Q9966; 99152

== ENCOUNTER → 2021-03-11 | Outpatient (CLI) | payer BC, OTHER ==
--- NOTE | 2021-03-11 15:13 | SFUN ---
SLEEP CENTER FOLLOW UP NOTE DATE OF SERVICE: 03/11/2021 This 55-year-old gentleman has been followed in Sleep Center for treatment of obstructive sleep apnea-hypopnea syndrome. The patient continues to use his CPAP equipment every night. No recent problems with bloody discharge from the nose. He is adjusting the humidity in his machine. [place] Sleepiness Scale today is 7, which is normal. I checked his BiPAP unit. Maximal inspiratory pressure is 12, minimal expiratory pressure 4, pressure support 4, average pressure 11/7 cm of water. Usage is 30/30 nights, but only 14/30 nights for more than 4 hours. Leak is 12 L/minute, which is borderline. Apnea-hypopnea index is 3.3, which is normal. MEDICATIONS: Pravastatin, omeprazole, vitamin D, C, and fish oil supplements. PHYSICAL EXAMINATION: GENERAL: Pleasant patient in no distress. VITAL SIGNS: BP 136/84, HR 76, RR 15, height 5 feet 7-1/4 inches, weight 254.0 pounds, body mass index 39.7, temperature 97.0, oxygen saturation at room air 97%. HEENT: PERRLA, EOMI, evaluation of oropharynx showed tongue protrudes midline. Low position of soft palate. NECK: Supple, no JVD. Thyroid is not palpable. LUNGS: Clear to percussion and to auscultation. Good air exchange. No wheezing or rhonchi. HEART: S1, S2 regular. No murmurs, gallops, or rubs. ABDOMEN: Obese. EXTREMITIES: No clubbing or cyanosis. 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 Cranial nerves 2 to 7 intact. There is no fasciculation or atrophy. noted. No focal deficits observed. IMPRESSION: 1. Obstructive sleep apnea-hypopnea syndrome. Patient demonstrated borderline compliance with treatment, benefitting from treatment. Normal respiration with BiPAP. 2. Obesity. Patient lost 116 pounds since previous visit. 3. History of episodes of headaches. 4. History of bloody discharges from the nose on CPAP; no recent episodes. 5. History of neck problems. PLAN: 1. Patient will continue to use PAP equipment every night for the whole night. 2. Sleep hygiene with regular time in bed for at least 7-1/2 to 8 hours. 3. Precautions related to driving. No driving if feeling sleepiness. 4. I will maintain all necessary prescription for PAP supplies including mask, tube, filters. 5. Watching weight. 6. Follow-up visit in 6 months or earlier if patient has any problems. Thank you very much for allowing me to participate in the management of your patient. Sincerely, Mart Dong MD, PhD, FAASM Diplomat of [place] [employer] Sleep Medicine Board of [place] [employer] [facility] [place] MMODL / SHANELL: [id number] /
== END ==
LOC: SLEEP 10:53
PROVIDERS: ATTEND Internal Medicine
DX: G47.33 Obstructive sleep apnea (adult) (pediatric) (principal); E66.9 Obesity, unspecified; Z99.89 Dependence on other enabling machines and devices; Z86.69 Personal history of other diseases of the nervous system and sense organs; Z87.39 Personal history of other diseases of the musculoskeletal system and connective tissue; Z68.39 Body mass index [BMI] 39.0-39.9, adult

== ENCOUNTER → 2021-03-11 | Outpatient (CLI) | payer BC, OTHER ==
[2021-03-11 09:48] VITALS: BP 131/78; PULSE 92; RESP 18; TEMP 92
== END ==
LOC: PNWHC3 07:56
PROVIDERS: ATTEND Physician Assistant Medical
DX: M31.19 Other thrombotic microangiopathy (principal); M62.838 Other muscle spasm
CPT/HCPCS: 99211

== ENCOUNTER 2021-04-09 06:07 | Day surgery (SDC) | payer BC, OTHER ==
[2021-04-07 16:04] VITALS: BMI 39.1
[2021-04-09 06:53] VITALS: TEMP 97.5
[2021-04-09] MEDS ORDERED: fentaNYL (PF) 50 MCG/ML 2 ML AMP ONE (07:13)
[2021-04-09] MEDS ORDERED: DEXAMETHASONE SOD PHOSPHATE 10 MG/ML 1 ML VIAL ONE (07:13)
[2021-04-09] MEDS ORDERED: IOPAMIDOL M200 10 ML VIAL ONE (07:13)
[2021-04-09] MEDS ORDERED: MIDAZOLAM 2 MG/2 ML VIAL ONE (07:13)
--- NOTE | 2021-04-09 07:29 | P.PCN ---
Date of Procedure: 04/09/21 Procedure(s) Performed: PROCEDURE 1. Cervical epidural steroid injection under fluoroscopic guidance, C6-7 2. Cervical epidurogram. PREOPERATIVE DIAGNOSIS: 1- Cervical radiculopathy. 2- cervical degenerative disc disease POSTOPERATIVE DIAGNOSIS: : 1- Cervical radiculopathy. 2-cervical degenerative d isc disease ANESTHESIA: moderate sedation with Versed 4 mg, and Fentanyl 100 mcg. EBL 0 PROCEDURE INDICATION: The patient with neck pain and radiculitis unresponsive to conservative treatment consents for procedure. PROCEDURE DESCRIPTION / TECHNIQUE: The patient was seen and identified in the preoperative area. Risks, benefits, complications, including but not limited to infections ,bleeding , allergic reactions to the medications ,and not complete pain releife, and alternatives were discussed with the patient, the patient agreed to proceed with the procedure and signed the consent. Patient was taken to the OR and time out was completed. The patient was placed in the prone position on the procedure table. A pillow was placed under the patients chest to increase the cervical interlaminar space. The cervical area was prepped and draped in the usual sterile fashion. Vital signs were closely monitored during the procedure. Conscious sedation was used during the procedure to decrease patients anxiety. Using anterior-posterior fluoroscopy, the C6-7 interlaminar space was identified and the skin over this site was marked and then infiltrated with 1% lidocaine subcutaneously. Subsequently, a 20-gauge 3-1/2-inch Tuohy epidural needle was inserted and advanced toward the epidural space by means of the ``hanging-drop technique and guided by AP and lateral fluoroscopy. The correct needle position in the epidural space was verified with the injection of 2 mL of the water soluble contrast dye Isovue-200 and observing an excellent epidurogram with the epidural spread of the dye, after negative aspiration for blood and CSF and in the absence of paresthesias. Again after negative aspiration, mixture containing 20 mg Dexamethasone and 2 ml of preservative-free normal saline injected and a washout of epidurogram was seen. Needle was withdrawn intact, skin was cleansed, and bandages were applied. Complications= none. Disposition= patient was placed in supine position and transferred to the recovery room area in stable condition and there was no evidence of upper or lower extremity motor or sensory deficit after the procedure patient was discharged from recovery room after discharge criteria met and home discharge instructions was given by the staff and patient will follow with the pain clinic in few weeks
[2021-04-09] MEDS ORDERED: IV FLUID CONTINUATION 1,000 ML IV ONE (07:32)
[2021-04-09 07:37] VITALS: RESP 16
[2021-04-09 07:47] VITALS: BP 99/60; PULSE 88
--- NOTE | 2021-04-09 08:06 | FL ---
EXAMINATION TYPE: FL guided pain mgmt statistic DATE OF EXAM: 04/09/2021 FLUOROSCOPY Fluoroscopy time of 3 seconds was used during cervical epidural injection. image/s document/s the pro cedure.
== END 2021-04-09 08:04 | disposition home or self-care (01) ==
LOC: ORPAIN 06:07
PROVIDERS: ATTEND Specialist
DX: M50.10 Cervical disc disorder with radiculopathy, unspecified cervical region (principal)
CPT/HCPCS: 62321; J2250; J1100; J3010; Q9966

== ENCOUNTER → 2021-04-30 | Outpatient (CLI) | payer BC, OTHER ==
--- NOTE | 2021-04-30 08:27 | P.PN ---
Subjective Progress Note Date: 04/30/21 Principal diagnosis: A 55 yr old male with a history of severe and chronic neck pain secondary to cervical degenerative disc diseases and spondylosis with facet arthropathy presents today for evaluation status post DAVID C6-C7. Patient states he sustained greater than 80% pain relief for the last several weeks status post procedure. Pain level is currently at 2 out of 10 in intensity, dull, achy without radiation of pain. Pain is provoked by extension and flexion or lateral flexion of the neck. Pain is alleviated with injections, heat, home-based stretching regimen, physical therapy in the past, repositioning and rest. Interventional pain procedures completed include DAVID of the C6-C7, C7-T1 since 2018 Patient is currently on denies. Patient denies any side effects of the medication(s), denies excessive drowsiness or sleepiness, denies suicidal ideation and reports that the current pain medication is helping to control the pain and improve activities of daily living. Patient denies any motor or sensory deficits. Patient denies any fever or night sweats, denies any change in the bowel movements or urination. Physical Examination: -Constitutional: Cooperative. Not in acute distress . -HEENT: Neck is supple. No lymphadenopathy. No thyromegaly. Normal thyroid size. Eyes: No ptosis , no icterus, no photophobia. ENT: No auditory deficits. Normal oropharynx. No Thrush. - Respiratory: Chest clear to auscultations bilaterally. No wheezing. No rhonchi. - Cardiovascular: Regular rate and rhythm. S1 / S2 , no S3 , no S4. - Gastrointestinal: Abdomen soft no tenderness. Bowel sounds positive in all four quadrants. No organomegaly. - Genitourinary: Deferred. - Neurologic: Cranial nerve II to XII intact. No focal neurological deficits. - Psychatric: Alert & oriented x 3. Matching mood & appropriate affect. Judgment and insight intact. - Lymphatic: No Lymphadenopathy. - Musculoskeletal: Cervical spine: Muscle bulk/ tone/ strength in the bilateral upper extremities normal. Vertebral body tenderness over C6 Facet loading test cervical area positive. Lumbar spine: Motor bulk/ tone/ strength lower extremities , thigh and legs : 5/5 Deep tendon reflexes : Normal Knee Jerk. Normal Ankle Jerk . Vertebral body tenderness to palpation over Lumbar Facet Loading Test positive Straight Leg Raise: positive at 30 degrees right side/ left side Gaenslen's Test positive Sacral spine : Severe tenderness over the Sacroiliac joint: right side / left side Range of motion: Flexion of the lumbar spine <60 degrees Range of motion: Extension of the lumbar spine <20 degrees Gaenslen's Test positive Sammie test: positive right side / left side Assessment and plan: Chronic low back pain secondary to lumbar degenerative disc disease , lumbar spondylosis with facet arthropathy without myelopathy Recommendation of DAVID C6-C7 in the near future if pain becomes more intolerable and unmanageable with home remedies, F indicated. All patient questions answered MAPS reviewed and it was appropriate. I have spent 31 minutes on patient care today. Dr Mccoy was available by phone for the evaluation of this patient. The time was used to review the medical records including relevant urine studies and Prescription history (MAPs), review of the available imaging, evaluation and examination of the patient, coordination of care with the medical staff and if applicable referring physicians, as well as creation of the medical record PQRS Measure Charge Sheet PQRS Narrative: Smoking Status Never smoker Hx Alcohol Use (MH) No Home Medications: Ambulatory Orders Pravastatin Sodium [Pravachol] 40 mg PO HS 07/23/13 Omeprazole [PriLOSEC] 20 mg PO HS 10/18/13 Ascorbic Acid [Vitamin C] 500 mg PO DAILY 11/13/15 Cholecalciferol [Vitamin D3] 1,000 unit PO DAILY 11/13/15 Ibuprofen [Motrin] 600 mg PO Q8HR PRN #60 tab 01/13/16 Cyanocobalamin (Vitamin B-12) [Vitamin B-12] 1,000 mcg PO DAILY 07/13/19 Tadalafil [Cialis] 5 mg PO DAILY 12/17/20 QUEtiapine FUMARATE [SEROquel] 25 mg PO HS 04/07/21
[2021-04-30 08:58] VITALS: BP 139/90; PULSE 69; RESP 16; TEMP 98.3
== END ==
LOC: PNWHC3 07:46
PROVIDERS: ATTEND Physician Assistant Medical
DX: M50.30 Other cervical disc degeneration, unspecified cervical region (principal); M47.812 Spondylosis without myelopathy or radiculopathy, cervical region; G89.29 Other chronic pain
CPT/HCPCS: 99211

== ENCOUNTER 2021-07-28 05:59 | Day surgery (SDC) | payer BC, OTHER ==
[2021-07-27 14:00] VITALS: BMI 40.7
[2021-07-28] MEDS ORDERED: LIDOCAINE 1% (10MG/ML) FOR IV START INTRADERMA PRN (06:02)
[2021-07-28] MEDS ORDERED: LACTATED RINGERS 1,000 ML IV SCH (06:02)
[2021-07-28 06:26] VITALS: RESP 18; TEMP 97.2
[2021-07-28] MEDS ORDERED: fentaNYL (PF) 50 MCG/ML 2 ML AMP ONE (06:55)
[2021-07-28] MEDS ORDERED: IOPAMIDOL M200 10 ML VIAL ONE (06:55)
[2021-07-28] MEDS ORDERED: DEXAMETHASONE SOD PHOSPHATE 10 MG/ML 1 ML VIAL ONE (06:55)
[2021-07-28] MEDS ORDERED: MIDAZOLAM 2 MG/2 ML VIAL ONE (06:55)
--- NOTE | 2021-07-28 07:13 | P.PCN ---
Date of Procedure: 07/28/21 Procedure(s) Performed: PROCEDURE 1. Cervical epidural steroid injection under fluoroscopic guidance, C6-7 2. Cervical epidurogram. PREOPERATIVE DIAGNOSIS: 1- Cervical radiculopathy. 2- cervical degenerative disc disease POSTOPERATIVE DIAGNOSIS: : 1- Cervical radiculopathy. 2-cervical degenerative disc disease ANESTHESIA: moderate sedation with Versed 4 mg, and Fentanyl 100 mcg. EBL 0 PROCEDURE INDICATION: The patient with neck pain and radiculitis unresponsive to conservative treatment consents for procedure. PROCEDURE DESCRIPTION / TECHNIQUE: The patient was seen and identified in the preoperative area. Risks, benefits, complications, including but not limited to infections ,bleeding , allergic reactions to the medications ,and not complete pain releife, and alternatives were discussed with the patient, the patient agreed to proceed with the procedure and signed the consent. Patient was taken to the OR and time out was completed. The patient was placed in the prone position on the procedure table. A pillow was placed under the patients chest to increase the cervical interlaminar space. The cervical area was prepped and draped in the usual sterile fashion. Vital signs were closely monitored during the procedure. Conscious sedation was used during the procedure to decrease patients anxiety. Using anterior-posterior fluoroscopy, the C6-7 interlaminar space was identified and the skin over this site was marked and then infiltrated with 1% lidocaine subcutaneously. Subsequently, a 20-gauge 3-1/2-inch Tuohy epidural needle was inserted and advanced toward the epidural space by means of the ``hanging-drop technique and guided by AP and lateral fluoroscopy. The correct needle position in the epidural space was verified with the injection of 2 mL of the water soluble contrast dye Isovue-200 and observing an excellent epidurogram with the epidural spread of the dye, after negative aspiration for blood and CSF and in the absence of paresthesias. Again after negative aspiration, mixture containing 20 mg Dexamethasone and 2 ml of preservative-free normal saline injected and a washout of epidurogram was seen. Needle was withdrawn intact, skin was cleansed, and bandages were applied. Complications= none. Disposition= patient was placed in supine position and transferred to the recovery room area in stable condition and there was no evidence of upper or lower extremity motor or sensory deficit after the procedure patient was discharged from recovery room after discharge criteria met and home discharge instructions was given by the staff and patient will follow with the pain clinic in few weeks
[2021-07-28] MEDS ORDERED: IV FLUID CONTINUATION 1,000 ML IV ONE (07:17)
[2021-07-28 07:31] VITALS: BP 108/73; PULSE 81
--- NOTE | 2021-07-28 13:05 | FL ---
EXAMINATION TYPE: FL guided pain mgmt statistic DATE OF EXAM: 07/28/2021 FLUOROSCOPY Fluoroscopy time of 5 seconds was used during cervical epidural injection. 1 image/s document/s the procedure.
== END 2021-07-28 07:46 | disposition home or self-care (01) ==
LOC: ORPAIN 05:59
PROVIDERS: ATTEND Specialist
DX: M50.123 Cervical disc disorder at C6-C7 level with radiculopathy (principal)
CPT/HCPCS: 62321; J2250; J1100; J3010; Q9966; 99152

== ENCOUNTER → 2021-08-17 | Outpatient (CLI) | payer BC, OTHER ==
--- NOTE | 2021-08-17 08:29 | P.PAINPG ---
PQRS Measure Charge Sheet Comment: A 56 yr old male with a history of severe and chronic neck pain secondary to degenerative disc diseases and spondylosis with facet arthropathy presents today for evaluation s/p DAVID C6-C7. Pt experienced 90% pain relief x 3 weeks s/p procedure. Pain level is currently at 6/10 in intensity, constant/sharp/achy with rotation and jerking movements of the head. Pain is alleviated with alternating heat & ice, topicals which are ineffective, massage and hot showers, repositioning and rest. Interventional pain procedures completed include CESIs (C6-C7, C7-T1) Patient denies any side effects of the medication(s), denies excessive drowsiness or sleepiness, denies suicidal ideation and reports that the current pain medication is helping to control the pain and improve activities of daily living. Patient denies any motor or sensory deficits. Patient denies any fever or night sweats, denies any change in the bowel movements or urination. Physical Examination: -Constitutional: Cooperative. Not in acute distress . - Neurologic: Cranial nerve II to XII intact. No focal neurological deficits. - Psychatric: Alert & oriented x 3. Matching mood & appropriate affect. Judgment and insight intact. - Musculoskeletal: Cervical spine: Muscle bulk/ tone/ strength in the bilateral upper extremities normal Vertebral body tenderness to palpation over C6, C7 Spurling test positive Distraction test positive Facet loading test positive Thoracic spine Muscle bulk / tone/ strength in the bilateral paraspinal muscles normal Vertebral body tender to palpation over Facet loading test positive Lumbar spine: Motor bulk/ tone/ strength lower extremities , thigh and legs : 5/5 Deep tendon reflexes : Normal Knee Jerk. Normal Ankle Jerk . Vertebral body tenderness to palpation over Lumbar Facet Loading Test positive Straight Leg Raise: positive at 30 degrees right side/ left side Gaenslen's Test positive Sacral spine : Severe tenderness over the Sacroiliac joint: right side / left side Range of motion: Flexion of the lumbar spine <60 degrees Range of motion: Extension of the lumbar spine <20 degrees Gaenslen's Test positive Maynor's Test positive Sammie test: positive right side / left side Thigh Thrust Test Sacral Thrust Test Assessment and plan: Chronic neck pain secondary to degenerative disc disease , spondylosis with facet arthropathy without myelopathy Recommendation of DAVID C6-C7 #3. This will be scheduled at the 3 mo [place] from prior ANDREAS. Risks, benefits of procedure discussed and pt verbalized understanding. Denies anticoagulant use or medical history of diabetes. All patient questions answered MAPS reviewed and it was appropriate. I have spent less than 30 minutes on patient care today. Dr Mccoy was available by phone for the evaluation of this patient. The time was used to review the medical records including relevant urine studies and Prescription history (MAPs), review of the available imaging, evaluation and examination of the patient, coordination of care with the medical staff and if applicable referring physicians, as well as creation of the medical record PQRS Narrative: Smoking Status Never smoker Hx Alcohol Use (MH) No Home Medications: Ambulatory Orders Pravastatin Sodium [Pravachol] 40 mg PO HS 07/23/13 Omeprazole [PriLOSEC] 20 mg PO HS 10/18/13 Ascorbic Acid [Vitamin C] 500 mg PO HS 11/13/15 Cholecalciferol [Vitamin D3] 1,000 unit PO HS 11/13/15 Ibuprofen [Motrin] 600 mg PO Q8HR PRN #60 tab 01/13/16 Cyanocobalamin (Vitamin B-12) [Vitamin B-12] 1,000 mcg PO HS 07/13/19 tadalafiL [Cialis] 5 mg PO HS 12/17/20 QUEtiapine FUMARATE [SEROquel] 12.5 mg PO HS PRN 04/07/21 Multivitamins, Thera [Multivitamin (formulary)] 1 tab PO HS 07/27/21 Controlled Substance Measures - Controlled Substance Measures Is patient prescribed a controlled substance at discharge?: No
[2021-08-17 08:36] VITALS: BP 139/86; PULSE 68; RESP 18; TEMP 98.6
== END ==
LOC: PNWHC3 07:54
PROVIDERS: ATTEND Specialist
DX: M50.30 Other cervical disc degeneration, unspecified cervical region (principal); M47.812 Spondylosis without myelopathy or radiculopathy, cervical region; G89.29 Other chronic pain
CPT/HCPCS: 99211

== ENCOUNTER 2021-11-10 06:01 | Day surgery (SDC) | payer BC, OTHER ==
[2021-11-10 06:27] VITALS: TEMP 97.8
[2021-11-10] MEDS ORDERED: LACTATED RINGERS 1,000 ML IV ONE ×3 (06:37→07:14)
[2021-11-10] MEDS ORDERED: IOPAMIDOL M200 10 ML VIAL ONE (06:54)
[2021-11-10] MEDS ORDERED: MIDAZOLAM 2 MG/2 ML VIAL ONE (06:54)
[2021-11-10] MEDS ORDERED: DEXAMETHASONE SOD PHOSPHATE 4 MG/ML 1 ML VIAL ONE (06:54)
[2021-11-10] MEDS ORDERED: fentaNYL (PF) 50 MCG/ML 2 ML AMP ONE (06:54)
[2021-11-10] MEDS ORDERED: LACTATED RINGERS 1,000 ML IV SCH (07:00)
--- NOTE | 2021-11-10 07:11 | P.PCN ---
Date of Procedure: 11/10/21 Description of Procedure: Pre- and Post-operative Diagnosis: Cervical spondylosis without myelopathy, and Cervical radiculopathy Procedure: C6-C7 Inter-Laminar Cervical Epidural Steroid Injection under biplanar fluoroscopy Surgeon: Jose A Patel Anesthesia: Local: 1% Lidocaine, IV sedation : Versed 2 mg, and fentanyl 150 g. Sedation supervision start time : sedation Supervision end time: 708 Complications: None. Estimated blood loss: None Specimens removed: None Fluoroscopic image: saved to electronic medical records. Indications for Procedure: The patient has been suffering from neck pain and pain radiating to the upper extremity . Inadequate pain control with pharmacologic regimen. An inter-laminar approach cervical epidural steroid injection was scheduled for the patient. Procedure and Findings: The patient was seen and examined in the holding area. The written informed consent was obtained after explaining the risks, benefits, alternatives of the procedure to the patient. The patient was brought to the procedure room and was placed in the prone position on the operating table. A pillow was placed under the upper chest. Standard anesthesia monitoring was done through out the procedure. Timeout was completed. The skin preparation was done with ChloraPrep 1 and draping was done in usual sterile fashion. Sterile technique was observed throughout the procedure. Under fluoroscopic guidance, the C6-C7 inter-laminar space was identified. 3 ml of 1% Lidocaine was injected with a 25 gauge needle to achieve adequate local anesthesia of the skin and subcutaneous tissue. A 20 gauge, 3.5 inch Tuohy type epidural needle was placed and gradually advanced up to the epidural space using loss of resistance technique and fluoroscopic guidance. Lateral, oblique fluoroscopic views confirm the needle position. No paresthesia was noted. A negative aspiration was confirmed and then 1 ml of Isovue-200 was injected. A good dye spread was seen in the epidural space and it was negative for any intrathecal, intraneural or intravascular spread. A total of 5 ml solution containing 20 mg Dexamethasone, and 3 ml preservative-free Normal Saline was injected slowly with intermittent aspiration. The needle was removed intact, area was cleaned and bandage was applied. Disposition : The patient tolerated the procedure very well. The patient was transferred to the recovery room and remained stable until discharged home. The patient was given detailed discharge instructions for bleeding, infection, increased pain at the injection site, and was advised to seek immediate medical attention should significant side effects develop. The patient will be followed up with our Pain Clinic within 4 weeks for follow-up visit.
[2021-11-10] MEDS ORDERED: IV FLUID CONTINUATION 1,000 ML IV ONE (07:14)
[2021-11-10 07:17] VITALS: RESP 20
--- NOTE | 2021-11-10 07:25 | FL ---
Intraoperative/procedural fluoroscopic services were provided. Total fluoroscopy time is 13 seconds w ith a total of 2 submitted images to PACS. Please see the operative/procedural note for further detai ls.
[2021-11-10 07:30] VITALS: BP 110/69; PULSE 68
== END 2021-11-10 07:44 ==
LOC: ORPAIN 06:01
PROVIDERS: ATTEND Specialist
DX: M47.22 Other spondylosis with radiculopathy, cervical region (principal); G47.33 Obstructive sleep apnea (adult) (pediatric); E78.00 Pure hypercholesterolemia, unspecified; Z98.890 Other specified postprocedural states
CPT/HCPCS: 62321; 99152; J2250; J1100; J3010; Q9966

== ENCOUNTER → 2021-12-09 | Outpatient (CLI) | payer BC, OTHER ==
[2021-12-09 08:06] VITALS: BP 144/75; PULSE 75; RESP 18; TEMP 98.5
--- NOTE | 2021-12-09 14:43 | P.PAINPG ---
PQRS Measure Charge Sheet Comment: A 56 yr old male with a history of severe and chronic neck pain secondary to cervical degenerative disc diseases and spondylosis with facet arthropathy without myelopathy presents today for evaluation s/p ANDREAS C6-7 #3. Pt states he experienced 90% relief x 4 wks s/p procedure. Pain level is currently at 4/10 in intensity, constant, localized in lower cerical spine, dull/ achy in charadcter w pinching towards BL lower neck. Pain is provoked as hith as 9/10 by hyperextension. Pain is alleviated with PT in the past, injections, heat, heating pad use, hot tub soaks, ice occasionally, medications (Motrin OTC), repositoining and rest. Interventional pain procedures completed include ANDREAS C6-C7 x3 Patient is currently on Motrin OTC Patient denies any side effects of the medication(s), denies excessive drowsiness or sleepiness, denies suicidal ideation and reports that the current pain medication is helping to control the pain and improve activities of daily living. Patient denies any motor or sensory deficits. Patient denies any fever or night sweats, denies any change in the bowel movements or urination. Physical Examination: -Constitutional: Cooperative. Not in acute distress . - Neurologic: Cranial nerve II to XII intact. No focal neurological deficits. - Psychatric: Alert & oriented x 3. Matching mood & appropriate affect. Judgment and insight intact. - Musculoskeletal: Cervical spine: Muscle bulk/ tone/ strength in the bilateral upper extremities normal Vertebral body tenderness to palpation over C6 Spurling test positive Distraction test positive Facet loading test positive Thoracic spine Muscle bulk / tone/ strength in the bilateral paraspinal muscles normal Vertebral body tender to palpation over Facet loading test positive Lumbar spine: Motor bulk/ tone/ strength lower extremities , thigh and legs : 5/5 Deep tendon reflexes : Normal Knee Jerk. Normal Ankle Jerk . Vertebral body tenderness to palpation over Lumbar Facet Loading Test positive Straight Leg Raise: positive at 30 degrees right side/ left side Gaenslen's Test positive Sacral spine : Severe tenderness over the Sacroiliac joint: right side / left side Range of motion: Flexion of the lumbar spine <60 degrees Range of motion: Extension of the lumbar spine <20 degrees Gaenslen's Test positive Maynor's Test positive Sammie test: positive right side / left side Thigh Thrust Test Sacral Thrust Test Assessment and plan: Chronic neck pain secondary to cervical degenerative disc disease , spondylosis with facet arthropathy without myelopathy Recommendation of ANDREAS C6-C7 #4. May have a series of 4 within a 12 mo time frame for optimal pain relief. Risks, benefits of procedure discussed and pt verbalized understanding. Admits to anticoagulant use or medical history of diabetes. Protocol for discontinuation/ continuation of medications dominic procedure discussed. All patient questions answered I have spent less than 30 minutes on patient care today. Dr Mccoy was available by phone for the evaluation of this patient. The time was used to review the medical records including relevant urine studies and Prescription history (MAPs), review of the available imaging, evaluation and examination of the patient, coordination of care with the medical staff and if applicable referring physicians, as well as creation of the medical record - Pain Location Neck Non-Pharmacological Interventions: Heat, Home Exercise, Ice, Physical Therapy, Position/Reposition, Relaxation Technique, Stretching Pharmacological Interventions: Epidural, PRN Medication PQRS Narrative: Smoking Status Never smoker Hx Alcohol Use (MH) No Home Medications: Ambulatory Orders Pravastatin Sodium [Pravachol] 40 mg PO HS 07/23/13 Omeprazole [PriLOSEC] 20 mg PO HS 10/18/13 Ascorbic Acid [Vitamin C] 500 mg PO HS 11/13/15 Cholecalciferol [Vitamin D3] 1,000 unit PO HS 11/13/15 Ibuprofen [Motrin] 600 mg PO Q8HR PRN #60 tab 01/13/16 Cyanocobalamin (Vitamin B-12) [Vitamin B-12] 1,000 mcg PO HS 07/13/19 tadalafiL [Cialis] 5 mg PO HS 12/17/20 QUEtiapine FUMARATE [SEROquel] 12.5 mg PO HS PRN 04/07/21 Multivitamins, Thera [Multivitamin (formulary)] 1 tab PO HS 07/27/21 Controlled Substance Measures - Controlled Substance Measures Is patient prescribed a controlled substance at discharge?: No
== END ==
LOC: PNWHC3 07:56
PROVIDERS: ATTEND Specialist
DX: M50.30 Other cervical disc degeneration, unspecified cervical region (principal); G89.29 Other chronic pain; M47.812 Spondylosis without myelopathy or radiculopathy, cervical region
CPT/HCPCS: 99211

== ENCOUNTER 2022-02-18 07:58 | Day surgery (SDC) | payer BC, OTHER ==
[2022-02-05 12:27] VITALS: BMI 42.3
[2022-02-18] MEDS ORDERED: LACTATED RINGERS 1,000 ML IV SCH (08:15)
[2022-02-18 08:29] VITALS: RESP 18; TEMP 97.1
[2022-02-18] MEDS ORDERED: IOPAMIDOL M200 10 ML VIAL ONE (08:39)
[2022-02-18] MEDS ORDERED: fentaNYL (PF) 50 MCG/ML 2 ML AMP ONE (08:39)
[2022-02-18] MEDS ORDERED: DEXAMETHASONE SOD PHOSPHATE 10 MG/ML 1 ML VIAL ONE (08:39)
[2022-02-18] MEDS ORDERED: MIDAZOLAM 2 MG/2 ML VIAL ONE (08:39)
[2022-02-18] MEDS ORDERED: LACTATED RINGERS 1,000 ML IV ONE (09:05)
--- NOTE | 2022-02-18 09:05 | P.PCN ---
Date of Procedure: 02/18/22 Description of Procedure: . PROCEDURE 1. Cervical epidural steroid injection under fluoroscopic guidance, C7-T1 2. Cervical epidurogram. PREOPERATIVE DIAGNOSIS: 1- Cervical Degenerative Disc Diseases 2- Cervical radiculopathy., 3-cervical spondylosis with cervical Facet arthropathy without myelopathy POSTOPERATIVE DIAGNOSIS: : 1- Cervical Degenerative Disc Diseases , 2- Cervical radiculopathy. 3-,cervical spondylosis with cervical Facet arthropathy without myelopathy ANESTHESIA: Local anesthesia with 1% lidocaine and IV sedation with Versed 3mg and Fentanyl 150 mcg. EBL 0 Fluoroscopy image was saved to electronic medical records PROCEDURE INDICATION: The patient with neck pain and radiculitis unresponsive to conservative treatment consents for procedure. PROCEDURE DESCRIPTION / TECHNIQUE: The patient was seen and identified in the preoperative area. Risks, benefits, complications, including but not limited to infections ,bleeding , allergic reactions to the medications ,and not complete pain releife, and alternatives were discussed with the patient, the patient a greed to proceed with the procedure and signed the consent. Patient stopped Motrin for 4 days prior and instructed to not resume for 24 hours. Patient was taken to the OR and time out was completed. The patient was placed in the prone position on the procedure table. A pillow was placed under the patients chest to increase the cervical interlaminar space. The cervical area was prepped and draped in the usual sterile fashion. Vital signs were closely monitored during the procedure. Conscious sedation was used during the procedure to decrease patients anxiety. Using anterior-posterior fluoroscopy, the C7-T1 interlaminar space was identified and the skin over this site was marked and then infiltrated with 1% lidocaine subcutaneously. Subsequently, a 20-gauge 3-1/2-inch Tuohy epidural needle was inserted and advanced toward the epidural space by means of the ``hanging-drop technique and guided by AP and lateral fluoroscopy. The correct needle position in the epidural space was verified with the injection of 1mL of the water soluble contrast dye Isovue-180 and observing an excellent epidurogram with the epidural spread of the dye, after negative aspiration for blood and CSF and in the absence of paresthesias. Again after negative aspiration, mixture containing 10 mg Dexamethasone and 2 ml of preservative-free normal saline injected and a washout of epidurogram was seen. Needle was withdrawn intact, skin was cleansed, and bandages were applied. Complications: none. Disposition: patient was placed in supine position and transferred to the recovery room area in stable condition and there was no evidence of upper or lower extremity motor or sensory deficit after the procedure patient was discharged from recovery room after discharge criteria met and home discharge instructions was given by the staff and patient will follow with the pain clinic in 2-4 weeks
--- NOTE | 2022-02-18 09:13 | FL ---
Fluoroscopy INDICATION: Pain FINDINGS: Fluoroscopy time: 24 seconds. Images obtained: 2. IMPRESSIONS: 1. Documentation of fluoroscopy.
[2022-02-18 09:23] VITALS: BP 114/79; PULSE 77
== END 2022-02-18 09:35 | disposition home or self-care (01) ==
LOC: ORPAIN 07:58
PROVIDERS: ATTEND Anesthesiology
DX: M50.13 Cervical disc disorder with radiculopathy, cervicothoracic region (principal); M47.22 Other spondylosis with radiculopathy, cervical region
CPT/HCPCS: 62321; J2250; J1100; J3010; Q9966; 99152

== ENCOUNTER → 2022-03-03 | Outpatient (CLI) | payer BC, OTHER ==
--- NOTE | 2022-03-03 12:38 | P.PN ---
Subjective DATE: 03/03/2022 FOLLOW UP VISIT. Patient with obstructive sleep apnea hypopnea syndrome return to sleep center for follow-up visit. Information from previous visit have been reviewed. Patient is using BPAP equipment every night for the whole night, getting PAP supplies in time. The patient does not have significant problems with the mask, BPAP unit and humidification. [place] sleepiness scale is 4, which is normal. I checked information from BPAP unit. BPAP unit pressure maximal inspiratory pressure 12, minimal expiratory pressure 4, pressure-support 4 cm H2O. Usage is 100 % for more then 4 hours, average 5.6 hours per night. Leak is 20 l/m, which is in acceptable range. Apnea Hypopnea Index is 3.3, which is normal, last night increased to 8.9. MEDICATIONS:1. Pravastatin 2. Omeprazole 3. Seroquel 4. Vitamins During physical exam: GENERAL: A pleasant patient without any distress. VITAL SIGNS: BP 131/82, HR 79, RR 14 , weight 286.2, temperature 97.2, oxygen saturation at room air 96 % . HEENT: PERRLA, EOMI.low position of soft palate . NECK: Supple. No JVD. LUNGS: Clear to percussion and to auscultation. Good air exchange. No wheezing or rhonchi. HEART: S1, S2 regular. ABDOMEN: Soft and nontender. Obese EXTREMITIES: No clubbing or cyanosis. FUNCTIONAL TESTER: Awake, alert, and oriented x3. No focal deficit. Impressions: 1. Obstructive sleep apnea-hypopnea syndrome. Patient demonstrated great compli ance with treatment, benefiting from treatment. 2. Obesity. Patient increased his weight from 254 pounds during previous visit up to 286 pounds at that visit. 3. History of headaches. 4. History of neck problems. 5. History of bloody discharges from the nose before on CPAP, no recent problems at all. Plan: 1. Continue using PAP equipment every night for the whole night. 2. To change air filter at least 1-2 times per month. 3. PAP unit should stay lower then position of the head. 4. Advised patient to remove all remaining water from humidifier canister daily and make it dry after each usage. Refill canister with fresh distilled water before each usage. 5. Sleep hygiene with regular time in bed for at least 8 hours. 6. Precautions related to driving. No driving if feel any sleepiness. 7. I will maintain prescription for PAP supplies including mask, tube, filters. 8. Follow up visit in 6 months or earlier if patient has any problems. 9. Watching and losing weight. Thank you very much for allowing me to participate in the management of your patient. Mart Dong MD, PhD, FAASM. Diplomat of [place] [employer], Sleep Medicine Board by [place] [employer] [facility] [place]
== END ==
LOC: SLEEP 09:46
PROVIDERS: ATTEND Internal Medicine
DX: G47.33 Obstructive sleep apnea (adult) (pediatric) (principal); E66.9 Obesity, unspecified; Z99.89 Dependence on other enabling machines and devices; Z86.69 Personal history of other diseases of the nervous system and sense organs; Z87.39 Personal history of other diseases of the musculoskeletal system and connective tissue
CPT/HCPCS: 99212

== ENCOUNTER → 2022-06-17 | Outpatient (CLI) | payer BC, OTHER ==
[2022-06-17 09:32] VITALS: BP 131/70; PULSE 96; RESP 16; TEMP 98.6
--- NOTE | 2022-06-17 13:51 | P.PAINPG ---
PQRS Measure Charge Sheet Comment: A 56 yr old male with a history of severe and chronic neck pain secondary to cervical DDD and spondylosis with facet arthropathy without myelopathy presents today for evaluation s/p ANDREAS C7-T1. Pt states she experienced 80 % pain relief x 3 mo s/p procedure. Pain level is provoked at 6 /10 in intensity, constant, localized in the cervical spine, stabbing in character w shooting towards the BL shoulders, R > L. Pain is provoked by lifting. Pain is alleviated with medications, topicals, injections, physician guided home exercise regimen, [employer] exercise bi weekly, heat, repositioning and rest. Pt had PT years ago which was temporary in treating pain. Interventional pain procedures completed include ANDREAS C7-T1, C6-7 Patient is currently on Ibu, Tyl Patient denies any side effects of the medication(s), denies excessive drowsiness or sleepiness, denies suicidal ideation and reports that the current pain medication is helping to control the pain and improve activities of daily living. Patient denies any motor or sensory deficits. Patient denies any fever or night sweats, denies any change in the bowel movements or urination. Physical Examination: -Constitutional: Cooperative. Not in acute distress . - Neurologic: Cranial nerve II to XII intact. No focal neurological deficits. - Psychatric: Alert & oriented x 3. Matching mood & appropriate affect. Judgment and insight intact. - Musculoskeletal: Cervical spine: Muscle bulk/ tone/ strength in the bilateral upper extremities normal Vertebral body tenderness to palpation over C6 Spurling test positive Distraction test positive Facet loading test positive TTP Thoracic spine Muscle bulk / tone/ strength in the bilateral paraspinal muscles normal Vertebral body tender to palpation over Facet loading test positive TTP Lumbar spine: Motor bulk/ tone/ strength lower extremities , thigh and legs : 5/5 Deep tendon reflexes : Normal Knee Jerk. Normal Ankle Jerk . Vertebral body tenderness to palpation over Lumbar Facet Loading Test positive Straight Leg Raise: positive at 30 degrees right side/ left side Gaenslen's Test positive Sacral spine : Severe tenderness over the Sacroiliac joint: right side / left side Range of motion: Flexion of the lumbar spine <60 degrees Range of motion: Extension of the lumbar spine <20 degrees Gaenslen's Test positive R / L Sammie test: positive right side / left side Thigh Thrust Test positive R / L Sacral Thrust Test positive R/ L Assessment and plan: Chronic neck pain secondary to cervical DDD, spondylosis with facet arthropathy without myelopathy Recommendation of ANDREAS C6-7 #3. Risks, benefits of procedure discussed and pt verbalized understanding. Admits to anticoagulant use or medical history of diabetes. Protocol for discontinuation/ continuation of medications dominic procedure discussed. All questions answered. I have spent less than 30 minutes on patient care today. Dr Mccoy was available by phone for the evaluation of this patient. The time was used to review the medical records including relevant urine studies and Prescription history (MAPs), review of the available imaging, evaluation and examination of the patient, coordination of care with the medical staff and if applicable referring physicians, as well as creation of the medical record PQRS Narrative: Smoking Status Never smoker Hx Alcohol Use (MH) No Home Medications: Ambulatory Orders Pravastatin Sodium [Pravachol] 40 mg PO HS 07/23/13 Omeprazole [PriLOSEC] 20 mg PO HS 10/18/13 Ascorbic Acid [Vitamin C] 1,000 mg PO HS 11/13/15 Cholecalciferol [Vitamin D3] 4,000 unit PO HS 11/13/15 Ibuprofen [Motrin] 600 mg PO Q8HR PRN #60 tab 01/13/16 Cyanocobalamin (Vitamin B-12) [Vitamin B-12] 1,000 mcg PO HS 07/13/19 tadalafiL [Cialis] 5 mg PO HS 12/17/20 QUEtiapine FUMARATE [SEROquel] 12.5 mg PO HS PRN 04/07/21 Multivitamins, Thera [Multivitamin (formulary)] 1 tab PO HS 07/27/21 Controlled Substance Measures - Controlled Substance Measures Is patient prescribed a controlled substance at discharge?: No
== END ==
LOC: PNWHC3 07:38
PROVIDERS: ATTEND Specialist
DX: M50.30 Other cervical disc degeneration, unspecified cervical region (principal); M47.812 Spondylosis without myelopathy or radiculopathy, cervical region; G89.29 Other chronic pain
CPT/HCPCS: 99211

== ENCOUNTER 2022-07-01 12:20 | Day surgery (SDC) | payer BC, OTHER ==
[2022-06-29 15:21] VITALS: BMI 39.1
[2022-07-01] MEDS ORDERED: LACTATED RINGERS 1,000 ML IV ONE (12:51)
[2022-07-01 12:54] VITALS: TEMP 97.9
[2022-07-01] MEDS ORDERED: MIDAZOLAM 2 MG/2 ML VIAL ONE (12:56)
[2022-07-01] MEDS ORDERED: fentaNYL (PF) 50 MCG/ML 2 ML AMP ONE (12:56)
[2022-07-01] MEDS ORDERED: DEXAMETHASONE SOD PHOSPHATE 10 MG/ML 1 ML VIAL ONE (12:56)
[2022-07-01] MEDS ORDERED: IOPAMIDOL M200 10 ML VIAL ONE (12:56)
--- NOTE | 2022-07-01 13:25 | P.PCN ---
Date of Procedure: 07/01/22 Description of Procedure: Pre- and Post-operative Diagnosis: Cervical radiculopathy Procedure: C6-C7 Inter-Laminar Cervical Epidural Steroid Injection under biplanar fluoroscopy Surgeon: Jose A Patel Anesthesia: Local: 1% Lidocaine, IV sedation : Versed 2 mg +1 mg +1 mg, and fentanyl 100 g. Sedation supervision start time : 1258 sedation Supervision end time: 1323 Complications: None. Estimated blood loss: None Specimens removed: None Fluoroscopic image: saved to electronic medical records. Indications for Procedure: The patient has been suffering from neck pain and pain radiating to the upper extremity . Inadequate pain control with pharmacologic regimen. An inter-laminar approach cervical epidural steroid injection was scheduled for the patient. Procedure and Findings: The patient was seen and examined in the holding area. The written informed consent was obtained after explaining the risks, benefits, alternatives of the procedure to the patient. The patient was brought to the procedure room and was placed in the prone position on the operating table. A pillow was placed under the upper chest. Standard anesthesia monitoring was done through out the procedure. Timeout was completed. The skin preparation was done with ChloraPrep 1 and draping was done in usual sterile fashion. Sterile technique was observed throughout the procedure. Under fluoroscopic guidance, the C6-C7 inter-laminar space was identified. 3 ml of 1% Lidocaine was injected with a 25 gauge needle to achieve adequate local anesthesia of the skin and subcutaneous tissue. A 20 gauge, 3.5 inch Tuohy type epidural needle was placed and gradually advanced up to the epidural space using loss of resistance technique and fluoroscopic guidance. Lateral, oblique fluoroscopic views confirm the needle position. No paresthesia was noted. A negative aspiration was confirmed and then 1 ml of Isovue-200 was injected. A good dye spread was seen in the epidural space and it was negative for any intrathecal, intraneural or intravascular spread. A total of 5 ml solution containing 20 mg Dexamethasone, and 3 ml preservative-free Normal Saline was injected slowly with intermittent aspiration. The needle was removed intact, ar ea was cleaned and bandage was applied. Disposition : The patient tolerated the procedure very well. The patient was transferred to the recovery room and remained stable until discharged home. The patient was given detailed discharge instructions for bleeding, infection, increased pain at the injection site, and was advised to seek immediate medical attention should significant side effects develop. The patient will be followed up with our Pain Clinic within 4 weeks for follow-up visit.
[2022-07-01] MEDS ORDERED: IV FLUID CONTINUATION 600 ML IV ONE (13:28)
[2022-07-01 13:30] VITALS: RESP 18
[2022-07-01] MEDS ORDERED: LACTATED RINGERS 1,000 ML IV SCH (13:30)
[2022-07-01 13:44] VITALS: BP 121/70; PULSE 76
--- NOTE | 2022-07-01 15:32 | FL ---
EXAMINATION TYPE: FL guided pain mgmt statistic DATE OF EXAM: 07/01/2022 FLUOROSCOPY Fluoroscopy time of 29 seconds was used during cervical epidural steroid injection. 3 image/s docume nt/s the procedure. 1.77 mGym2
== END 2022-07-01 13:58 | disposition home or self-care (01) ==
LOC: ORPAIN 12:20
DX: M54.12 Radiculopathy, cervical region (principal); G47.33 Obstructive sleep apnea (adult) (pediatric); K21.9 Gastro-esophageal reflux disease without esophagitis; Z99.89 Dependence on other enabling machines and devices; Z79.899 Other long term (current) drug therapy; Z98.84 Bariatric surgery status; Z98.890 Other specified postprocedural states
CPT/HCPCS: 99152; 99153; 62321; J2250; J1100; J3010; Q9966

== ENCOUNTER → 2022-07-22 | Outpatient (CLI) | payer BC, OTHER ==
[2022-07-22 08:03] VITALS: BP 130/80; PULSE 70; RESP 18; TEMP 98.5
--- NOTE | 2022-07-22 14:23 | P.PAINPG ---
PQRS Measure Charge Sheet Comment: A 57 yr old male with a history of severe and chronic neck pain secondary to cervical DDD and spondylosis with facet arthropathy without myelopathy presents today for evaluation s/p ANDREAS C6-7. Pt states he experienced 100 % pain relief x 3 wks s/p procedure. Pain level is provoked at 2 /10 in intensity, constant, localized in the cervical spine, dull/ achy/ sharp/ in character w shooting towards the BL shoulders, R> L. He no longer has pain in the RUE. Pain is provoked by lifting. Pain is alleviated with medications, topicals, injections, physician guided home exercise regimen, [employer] exercise 3-4 times weekly, heat, repositioning and rest. Interventional pain procedures completed include ANDREAS C6-7 x5, C7-T1 x5 Patient is currently on Tyl, Ibu, Aleve Patient denies any side effects of the medication(s), denies excessive drowsiness or sleepiness, denies suicidal ideation and reports that the current pain medication is helping to control the pain and improve activities of daily living. Patient denies any motor or sensory deficits. Patient denies any fever or night sweats, denies any change in the bowel movements or urination. Physical Examination: -Constitutional: Cooperative. Not in acute distress . - Neurologic: Cranial nerve II to XII intact. No focal neurological deficits. - Psychatric: Alert & oriented x 3. Matching mood & appropriate affect. Judgment and insight intact. - Musculoskeletal: Cervical spine: Muscle bulk/ tone/ strength in the bilateral upper extremities normal Vertebral body tenderness to palpation over Spurling test positive Distraction test positive Facet loading test positive TTP Thoracic spine Muscle bulk / tone/ strength in the bilateral paraspinal muscles normal Vertebral body tender to palpation over Facet loading test positive TTP Lumbar spine: Motor bulk/ tone/ strength lower extremities , thigh and legs : 5/5 Deep tendon reflexes : Normal Knee Jerk. Normal Ankle Jerk . Vertebral body tenderness to palpation over Lumbar Facet Loading Test positive Straight Leg Raise: positive at 30 degrees right side/ left side Gaenslen's Test positive Sacral spine : Severe tenderness over the Sacroiliac joint: right side / left side Range of motion: Flexion of the lumbar spine <60 degrees Range of motion: Extension of the lumbar spine <20 degrees Gaenslen's Test positive R / L Sammie test: positive right side / left side Thigh Thrust Test positive R / L Sacral Thrust Test positive R/ L Assessment and plan: Chronic neck pain secondary to cervical DDD, spondylosis with facet arthropathy without myelopathy Pt exhibited sufficient and substantial pain relief w procedure. He will manage residual pain at home and may return to the clinic on an as needed basis. All questions answered. I have spent less than 30 minutes on patient care today. Dr Mccoy was available by phone for the evaluation of this patient. The time was used to review the medical records including relevant urine studies and Prescription history (MAPs), review of the available imaging, evaluation and examination of the patient, coordination of care with the medical staff and if applicable referring physicians, as well as creation of the medical record PQRS Narrative: Smoking Status Never smoker Hx Alcohol Use (MH) No Home Medications: Ambulatory Orders Pravastatin Sodium [Pravachol] 40 mg PO HS 07/23/13 Omeprazole [PriLOSEC] 20 mg PO HS 10/18/13 Ascorbic Acid [Vitamin C] 1,000 mg PO HS 11/13/15 Cholecalciferol [Vitamin D3] 4,000 unit PO HS 11/13/15 Ibuprofen [Motrin] 600 mg PO Q8HR PRN #60 tab 01/13/16 Cyanocobalamin (Vitamin B-12) [Vitamin B-12] 1,000 mcg PO HS 07/13/19 tadalafiL [Cialis] 5 mg PO HS 12/17/20 QUEtiapine FUMARATE [SEROquel] 12.5 mg PO HS PRN 04/07/21 Multivitamins, Thera [Multivitamin (formulary)] 1 tab PO HS 07/27/21 Controlled Substance Measures - Controlled Substance Measures Is patient prescribed a controlled substance at discharge?: No
== END ==
LOC: PNWHC3 07:31
PROVIDERS: ATTEND Specialist
DX: M50.30 Other cervical disc degeneration, unspecified cervical region (principal); M47.812 Spondylosis without myelopathy or radiculopathy, cervical region; G89.29 Other chronic pain
CPT/HCPCS: 99211

== ENCOUNTER → 2022-09-29 | Outpatient (CLI) | payer BC, OTHER ==
--- NOTE | 2022-09-29 11:58 | P.PN ---
Subjective DATE: 09/29/2022 FOLLOW UP VISIT. Patient with obstructive sleep apnea hypopnea syndrome return to sleep center for follow-up visit. Information from previous visit have been reviewed. Patient is using PAP equipment every night for the whole night, getting PAP supplies in time. The patient does not have significant problems with the mask, PAP unit and humidification. [place] sleepiness scale increased to 12. I checked information from PAP unit. BPAP unit pressure maximal inspiratory pressure 14, minimal expiratory pressure for, average pressure 13.2 over 9.2 cm H2O. Usage is 100% and around 60 % for more then 4 hours, average 4.5 hours per night. Leak is 9.5 l/m, which is in acceptable range. Apnea Hypopnea Index is 3.1, which is normal. MEDICATIONS:1. Omeprazole 2. Pravastatin 3. Seroquel 4. Vitamins During physical exam: GENERAL: A pleasant patient without any distress. VITAL SIGNS: BP 136/84, HR 94, RR 16 , weight 261, temperature 98.3, oxygen saturation at room air 95 % . HEENT: PERRLA, EOMI.low position of soft palate, Mallapati 3 . NECK: Supple. No JVD. LUNGS: Clear to percussion and to auscultation. Good air exchange. No wheezing or rhonchi. HEART: S1, S2 regular. ABDOMEN: Soft and nontender.[] EXTREMITIES: No clubbing or cyanosis. SPRINKLER WORKER: Awake, alert, and oriented x3. No focal deficit. Impressions: 1. Obstructive sleep apnea-hypopnea syndrome. Patient demonstrated good compliance with treatment, benefiting from treatment. 2. Obesity, patient lost 25 pounds since previous visit. 3. History of headaches. 4. History of neck problems. Plan: 1. Continue using PAP equipment every night for the whole night. 2. To change air filter at least 1-2 times per month. 3. PAP unit should stay lower then position of the head. 4. Advised patient to remove all remaining water from humidifier canister daily and make it dry after each usage. Refill canister with fresh distilled water before each usage. 5. Sleep hygiene with regular time in bed for at least 8 hours. 6. Precautions related to driving. No driving if feel any sleepiness. 7. I will maintain prescription for PAP supplies including mask, tube, filters. 8. Watching and continue losing weight. 9. Follow up visit in 6 months or earlier if patient has any problems. Thank you very much for allowing me to participate in the management of your patient. Mart Dong MD, PhD, FAASM. Diplomat of [employer], Sleep Medicine Board by [employer] [facility] [place]
== END ==
LOC: 3 N SLEEP 10:37
PROVIDERS: ATTEND Internal Medicine
DX: G47.33 Obstructive sleep apnea (adult) (pediatric) (principal); E66.9 Obesity, unspecified; R51.9 Headache, unspecified; M53.82 Other specified dorsopathies, cervical region; Z99.89 Dependence on other enabling machines and devices
CPT/HCPCS: 99212

== ENCOUNTER → 2022-10-13 | Outpatient (CLI) | payer BC, OTHER ==
[2022-10-13 08:46] VITALS: BP 146/86; PULSE 80; RESP 15; TEMP 98.2
--- NOTE | 2022-10-13 15:11 | P.PAINPG ---
PQRS Measure Charge Sheet Comment: A 57 yr old male with a history of severe and chronic neck pain secondary to cervical DDD and spondylosis with facet arthropathy without myelopathy presents today for evaluation. Pain level is provoked at 7 /10 in intensity, constant, localized in the cervical spine, achy in character w shooting towards the BL shoulders, R> L. He no longer has pain in the RUE. Pain is provoked by lifting. Pain is alleviated with medications, topicals, injections, physician guided home exercise regimen, [employer] exercise 3-4 times weekly, heat, repositioning and rest. Oswestry axial pain score of 18. Interventional pain procedures completed include ANDREAS C6-7 x5, C7-T1 x5 Patient is currently on Tyl, Ibu, Aleve Patient denies any side effects of the medication(s), denies excessive drowsiness or sleepiness, denies suicidal ideation and reports that the current pain medication is helping to control the pain and improve activities of daily living. Patient denies any motor or sensory deficits. Patient denies any fever or night sweats, denies any change in the bowel movements or urination. Physical Examination: -Constitutional: Cooperative. Not in acute distress . - Neurologic: Cranial nerve II to XII intact. No focal neurological deficits. - Psychatric: Alert & oriented x 3. Matching mood & appropriate affect. Judgment and insight intact. - Musculoskeletal: Cervical spine: Muscle bulk/ tone/ strength in the bilateral upper extremities normal Vertebral body tenderness to palpation over C7 Spurling test positive over C7-T1 BL Distraction test positive Facet loading test positive TTP Thoracic spine Muscle bulk / tone/ strength in the bilateral paraspinal muscles normal Vertebral body tender to palpation over Facet loading test positive TTP Lumbar spine: Motor bulk/ tone/ strength lower extremities , thigh and legs : 5/5 Deep tendon reflexes : Normal Knee Jerk. Normal Ankle Jerk . Vertebral body tenderness to palpation over Lumbar Facet Loading Test positive Straight Leg Raise: positive at 30 degrees right side/ left side Gaenslen's Test positive Sacral spine : Severe tenderness over the Sacroiliac joint: right side / left side Range of motion: Flexion of the lumbar spine <60 degrees Range of motion: Extension of the lumbar spine <20 degrees Gaenslen's Test positive R / L Sammie test: positive right side / left side Thigh Thrust Test positive R / L Sacral Thrust Test positive R/ L Assessment and plan: Chronic neck pain secondary to cervical DDD, spondylosis with facet arthropathy without myelopathy Recommendation of ANDREAS C7-T1. May need a series of injections for optimal pain relief. Risks, benefits of procedure discussed and patient verbalized understanding. Protocol for discontinuation/continuation of medications surrounding procedure discussed. All questions answered. I have spent less than 30 minutes on patient care today. Dr Mccoy was available by phone for the evaluation of this patient. The time was used to review the medical records including relevant urine studies and Prescription history (MAPs), review of the available imaging, evaluation and examination of the patient, coordination of care with the medical staff and if applicable referring physicians, as well as creation of the medical record PQRS Narrative: Smoking Status Never smoker Hx Alcohol Use (MH) No Home Medications: Ambulatory Orders Pravastatin Sodium [Pravachol] 40 mg PO HS 07/23/13 Omeprazole [PriLOSEC] 20 mg PO HS 10/18/13 Ascorbic Acid [Vitamin C] 1,000 mg PO HS 11/13/15 Cholecalciferol [Vitamin D3] 4,000 unit PO HS 11/13/15 Ibuprofen [Motrin] 600 mg PO Q8HR PRN #60 tab 01/13/16 Cyanocobalamin (Vitamin B-12) [Vitamin B-12] 1,000 mcg PO HS 07/13/19 tadalafiL [Cialis] 5 mg PO HS 12/17/20 QUEtiapine FUMARATE [SEROquel] 12.5 mg PO HS PRN 04/07/21 Multivitamins, Thera [Multivitamin (formulary)] 1 tab PO HS 07/27/21 Controlled Substance Measures - Controlled Substance Measures Is patient prescribed a controlled substance at discharge?: No
== END ==
LOC: PNWHC3 07:57
PROVIDERS: ATTEND Specialist
DX: M50.33 Other cervical disc degeneration, cervicothoracic region (principal); M47.813 Spondylosis without myelopathy or radiculopathy, cervicothoracic region; G89.29 Other chronic pain
CPT/HCPCS: 99211

== ENCOUNTER 2022-11-04 06:01 | Day surgery (SDC) | payer BC, OTHER ==
[2022-11-03 10:30] VITALS: BMI 39.1
[2022-11-04] MEDS ORDERED: IOPAMIDOL M200 10 ML VIAL ONE (07:09)
[2022-11-04] MEDS ORDERED: DEXAMETHASONE SOD PHOSPHATE 10 MG/ML 1 ML VIAL ONE (07:09)
--- NOTE | 2022-11-04 07:16 | P.PCN ---
Date of Procedure: 11/04/22 Procedure(s) Performed: . PROCEDURE 1. Cervical epidural steroid injection under fluoroscopic guidance, C7-T1 (fluoroscopy images available in the radiology department ) 2. Cervical epidurogram. PREOPERATIVE DIAGNOSIS: 1- Cervical Degenerative Disc Diseases 2- Cervical radiculopathy., 3-cervical spondylosis with cervical Facet arthropathy without myelopathy. POSTOPERATIVE DIAGNOSIS: : 1- Cervical Degenerative Disc Diseases , 2- Cervical radiculopathy. 3-,cervical spondylosis with cervical Facet arthropathy without myelopathy. ANESTHESIA: Local anesthesia with lidocaine 1% 3 ml only EBL 0 PROCEDURE INDICATION: The patient with neck pain and radiculitis unresponsive to conservative treatment consents for procedure. PROCEDURE DESCRIPTION / TECHNIQUE: The patient was seen and identified in the preoperative area. Risks, benefits, complications, including but not limited to infections ,bleeding , allergic reactions to the medications ,and not complete pain releife, and alternatives were discussed with the patient, the patient agreed to proceed with the procedure and signed the consent. Patient was taken to the OR and time out was completed. The patient was placed in the prone position on the procedure table. A pillow was placed under the patients chest to increase the cervical interlaminar space. The cervical area was prepped and draped in the usual sterile fashion. Vital signs were closely monitored during the procedure. Using anterior-posterior fluoroscopy, the C7-T1 interlaminar space was identified and the skin over this site was marked and then infiltrated with 1% lidocaine subcutaneously. Subsequently, a 20-gauge 3-1/2-inch Tuohy epidural needle was inserted and advanced toward the epidural space by means of the ``hanging-drop technique and guided by AP and lateral fluoroscopy. The correct needle position in the epidural space was verified with the injection of 2 mL of the water soluble contrast dye Isovue-200 and observing an excellent epidurogram with the epidural spread of the dye, after negative aspiration for blood and CSF and in the absence of paresthesias. then, mixture containing 20 mg Dexamethasone and 2 ml of preservative-free normal saline injected and a washout of epidurogram was seen. Needle was withdrawn intact, skin was cleansed, and bandages were applied. Complications= none. Disposition= patient was placed in supine position and transferred to the recovery room area in stable condition and there was no evidence of upper or lower extremity motor or sensory deficit after the procedure patient was discharged from recovery room after discharge criteria met and home discharge instructions was given by the staff and patient will follow with the pain clinic in 2-4 weeks
--- NOTE | 2022-11-04 11:12 | FL ---
Intraoperative/procedural fluoroscopic services were provided. Total fluoroscopy time is 1.7 seconds with a total of 1 submitted images to PACS. Please see the operative/procedural note for further deta ils. DAP: [id number] mGym2
[2022-11-04 15:55] VITALS: BP 120/70; PULSE 74; RESP 16; TEMP 97.5
== END 2022-11-04 07:35 | disposition home or self-care (01) ==
LOC: ORPAIN 06:01
PROVIDERS: ATTEND Specialist
DX: M50.13 Cervical disc disorder with radiculopathy, cervicothoracic region (principal); M47.22 Other spondylosis with radiculopathy, cervical region
CPT/HCPCS: 62321; J1100; Q9966

== ENCOUNTER → 2022-11-26 | Outpatient (CLI) | payer BC, OTHER ==
--- NOTE | 2022-11-26 21:26 | MR ---
EXAMINATION TYPE: MR cervical spine wo con DATE OF EXAM: 11/26/2022 3:32 PM CLINICAL INDICATION:Male, 57 years old with history of M54.12 RADICULOPATHY, CERVICAL REGION, Neck pa in, numbness down right arm. COMPARISON: 12/13/2012. TECHNIQUE: Multi planar, multi sequence imaging was performed utilizing: T1-weighted, T2-weighted, an d turbo inversion recovery imaging of the cervical spine. IV Contrast: cc (none if empty) FINDINGS: Alignment: The cervical vertebral bodies have preserved heights. Alignment is within normal limits gi galen patient positioning. Bones: Scattered Modic endplate changes with osteophytes and disc space narrowing. Multilevel degener ative disc disease is noted and most pronounced at the C5-C7 vertebral levels. Cord: The spinal cord is unremarkable with regards to their signal intensity and morphology. Discs: Multilevel disc desiccation is present. C2-C3: No significant disc pathology. The spinal canal is patent. No neural foraminal stenosis. C3-C4: No significant disc pathology. The spinal canal is patent. Bilateral facet and uncovertebral joint arthropathy are present with mild right neural foraminal stenosis. The left neural foramen is p atent. C4-C5: No significant disc pathology. The spinal canal is patent. Bilateral facet and uncovertebral joint arthropathy are present with mild bilateral neural foraminal stenosis. C5-C6: A disc osteophyte complex is present with mild spinal canal stenosis. Bilateral facet and unc overtebral joint arthropathy are present with mild bilateral neural foraminal stenosis. C6-C7: Motion limits evaluation at this level. There is felt to be right foraminal disc protrusion se en on single slice series 411 image 12. This effaces the exiting right nerve and C7-T1. A disc osteop hyte complex is present with moderate spinal canal stenosis. Bilateral facet and uncovertebral joint arthropathy are present with mild bilateral neural foraminal stenosis. C7-T1: No significant disc pathology. The spinal canal is patent. No neural foraminal stenosis. Other: None. IMPRESSION: Motion artifact limits evaluation. Mild progression of multilevel disc degeneration changes. The find ings are worse at C5-C7 and there is a C6-C7 disc osteophyte complex with suspected right foraminal d isc protrusion which is felt to likely displace the exiting nerve at C7-T1.
== END | disposition home or self-care (01) ==
LOC: RADMRIMAIN 14:18
PROVIDERS: ATTEND Family Medicine
DX: M50.123 Cervical disc disorder at C6-C7 level with radiculopathy (principal); M25.78 Osteophyte, vertebrae
CPT/HCPCS: 72141

== ENCOUNTER → 2023-01-28 | Outpatient (CLI) | payer BC, OTHER ==
--- NOTE | 2023-01-28 10:23 | MR ---
EXAMINATION TYPE: MR Prostate wo/w con DATE OF EXAM: 01/28/2023 8:46 AM COMPARISON: None. CLINICAL INDICATION:Male, 57 years old with history of R97.20 elevated psa; Elevated PSA. TECHNIQUE: Multi-planar, multi-sequence imaging of the pelvis is performed prior to and following the uncomplicated administration of bolus intravenous gadolinium. CONTRAST: 11 Gadavist Interpretive Criteria: PI-RADS v2.1 SERUM PSA: 3.0 on 01/05/2023. SURGICAL PATHOLOGY: No data available. FINDINGS: Prostatic dimensions: 5.4 x 5.7 x 4.2 cm. Ellipsoid Volume:67.69 (PSA density=0.04 ng/mL/mL) CENTRAL GLAND (Central and Transition Zones/CZ+TZ): Multiple bilateral, heterogenous appearing hypertrophic stromal nodules, without suspicious lesion. M edian lobe hypertrophy with protrusion into the base of the bladder. (PI-RADS 2) PERIPHERAL ZONE (PZ): Generalized low T2 signal throughout the peripheral gland, No evidence of masslike abnormality, or lo calized perfusional hypervascularity, to further suggest a focus of clinically significant prostate c ancer. (PI-RADS 2) SEMINAL VESICLES (SV): Symmetric and unremarkable. PERIPROSTATIC TISSUES: Unremarkable. LYMPH NODES: No enlarged pelvic lymph node. REMAINING PELVIS: Bladder wall is within normal limits given distention. No abnormal free or organized intrapelvic fluid collection. No pathologic bowel dilation or mural thickening. Right fat containing inguinal hernia OSSEOUS STRUCTURES: No suspicious osseous abnormality. IMPRESSION: 1. No specific features for high-risk prostate cancer. Maximum PI-RADS score: 2. 2. Moderate BPH, estimated gland volume 67.69 mL.
== END | disposition home or self-care (01) ==
LOC: RADMRIMAIN 07:22
PROVIDERS: ATTEND Urology
DX: N40.0 Benign prostatic hyperplasia without lower urinary tract symptoms (principal); R97.20 Elevated prostate specific antigen [PSA]
CPT/HCPCS: 72197; A9585

== ENCOUNTER → 2023-03-30 | Outpatient (CLI) | payer BC, OTHER ==
--- NOTE | 2023-03-30 13:18 | P.PN ---
Subjective DATE: 03/30/2023 FOLLOW UP VISIT. Patient with obstructive sleep apnea hypopnea syndrome return to sleep center for follow-up visit. Information from previous visit have been reviewed. Patient is using BPAP equipment every night for the whole night, getting PAP supplies in time. Patient is using nasal pillow mask. Sometimes has minimal bloody discharges from the one nostril. [place] sleepiness scale is 10. I checked information from BPAP unit. PAP unit pressure maximal inspiratory pressure 14, minimal expiratory pressure for, average pressure 13/9 cm H2O. Usage is 100 % for more then 4 hours, average 4.8 hours per night. Leak is 12 l/m, which is in acceptable range. Apnea Hypopnea Index is 4.7, which is normal. Humidity level is at 2. MEDICATIONS:1. Omeprazole 2. Vitamins 3. Fish oil During physical exam: GENERAL: A pleasant patient without any distress. VITAL SIGNS: BP 150/80, HR 96, RR 94 , weight to 62.4, temperature 98.3, oxygen saturation at room air 94 % . HEENT: PERRLA, EOMI.low position of soft palate, Mallapati 3 . NECK: Supple. No JVD. LUNGS: Clear to percussion and to auscultation. Good air exchange. No wheezing or rhonchi. HEART: S1, S2 regular. ABDOMEN: Soft and nontender. Slightly obese EXTREMITIES: No clubbing or cyanosis. BUSINESS PROJECT ANALYST: Awake, alert, and oriented x3. No focal deficit. Impressions: 1. Obstructive sleep apnea-hypopnea syndrome. Patient demonstrated great compliance with treatment, benefiting from treatment. 2. Obesity. 3. History of headaches. 4. History of neck problems. 5. History of hyperlipidemia. Humidity level was adjusted to level of 4. Plan: 1. Continue using PAP equipment every night for the whole night. 2. To change air filter at least 1-2 times per month. 3. PAP unit should stay lower then position of the head. 4. Advised patient to remove all remaining water from humidifier canister daily and make it dry after each usage. Refill canister with fresh distilled water before each usage. 5. Sleep hygiene with regular time in bed for at least 8 hours. 6. Precautions related to driving. No driving if feel any sleepiness. 7. I will maintain prescription for PAP supplies including mask, tube, filters. 8. Follow up visit in 6 months or earlier if patient has any problems. 9. Watching weight. 10. Patient will try to use nasal mask instead of nasal pillow mask. We gave him Wisp nasal mask. 11. Jarbidge gel to the nose. Thank you very much for allowing me to participate in the management of your patient. Mart Dong MD, PhD, FAASM. Diplomat of [place] [employer], Sleep Medicine Board by [place] [employer] [facility] [place]
== END ==
LOC: 3 N SLEEP 10:16
PROVIDERS: ATTEND Internal Medicine
DX: G47.33 Obstructive sleep apnea (adult) (pediatric) (principal); E66.9 Obesity, unspecified; E78.5 Hyperlipidemia, unspecified; Z87.39 Personal history of other diseases of the musculoskeletal system and connective tissue; Z86.69 Personal history of other diseases of the nervous system and sense organs; Z99.89 Dependence on other enabling machines and devices
CPT/HCPCS: 99212

== ENCOUNTER → 2023-06-08 | Outpatient (CLI) | payer OTHER ==
[2023-06-08 08:22] VITALS: BP 133/84; PULSE 82; RESP 16
--- NOTE | 2023-06-08 14:51 | P.PAINPG ---
PQRS Measure Charge Sheet Comment: A 57 yr old male with a history of severe and chronic neck pain secondary to cervical DDD and spondylosis with facet arthropathy without myelopathy presents today for evaluation s/p ANDREAS C7-T1. Pt states he experienced 100 % pain relief x 2 mo s/p procedure. Pain level is provoked at 9 /10 in intensity, constant, localized in the lower cervical spine, achy in character w shooting towards the BL shoulders. He no longer has pain in the RUE. Pain is provoked by lifting. Pain is alleviated with medications, topicals, injections, physician guided home exercise regimen daily since Oct 2022, [employer] exercise 3-4 times weekly which he is currently in, acupuncture treatments which he started this week, heat, repositioning and rest. Cervical disability score of 19. Interventional pain procedures completed include ANDREAS C6-7 x5, C7-T1 x5 Patient is currently on Tyl, Ibu, Aleve Patient denies any side effects of the medication(s), denies excessive drowsiness or sleepiness, denies suicidal ideation and reports that the current pain medication is helping to control the pain and improve activities of daily living. Patient denies any motor or sensory deficits. Patient denies any fever or night sweats, denies any change in the bowel movements or urination. Physical Examination: -Constitutional: Cooperative. Not in acute distress . - Neurologic: Cranial nerve II to XII intact. No focal neurological deficits. - Psychatric: Alert & oriented x 3. Matching mood & appropriate affect. Judgment and insight intact. - Musculoskeletal: Cervical spine: Muscle bulk/ tone/ strength in the bilateral upper extremities normal Vertebral body tenderness to palpation over C6 Spurling test positive over C6-7 BL Distraction test positive Facet loading test positive TTP Thoracic spine Muscle bulk / tone/ strength in the bilateral paraspinal muscles normal Vertebral body tender to palpation over Facet loading test positive TTP Lumbar spine: Motor bulk/ tone/ strength lower extremities , thigh and legs : 5/5 Deep tendon reflexes : Normal Knee Jerk. Normal Ankle Jerk . Vertebral body tenderness to palpation over Lumbar Facet Loading Test positive Straight Leg Raise: positive at 30 degrees right side/ left side Gaenslen's Test positive Sacral spine : Severe tenderness over the Sacroiliac joint: right side / left side Range of motion: Flexion of the lumbar spine <60 degrees Range of motion: Extension of the lumbar spine <20 degrees Gaenslen's Test positive R / L Sammie test: positive right side / left side Thigh Thrust Test positive R / L Sacral Thrust Test positive R/ L Assessment and plan: Chronic neck pain secondary to cervical DDD, spondylosis with facet arthropathy without myelopathy Recommendation of ANDREAS C6-C7 #1. May need a series of injections for optimal pain relief. Risks, benefits of procedure discussed and patient verbalized understanding. Protocol for discontinuation/continuation of medications surrounding procedure discussed. All questions answered. I have spent less than 30 minutes on patient care today. Dr Mccoy was available by phone for the evaluation of this patient. The time was used to review the medical records including relevant urine studies and Prescription history (MAPs), review of the available imaging, evaluation and examination of the patient, coordination of care with the medical staff and if applicable referring physicians, as well as creation of the medical record PQRS Narrative: Smoking Status Never smoker Hx Alcohol Use (MH) No Home Medications: Ambulatory Orders Pravastatin Sodium [Pravachol] 40 mg PO HS 07/23/13 Omeprazole [PriLOSEC] 20 mg PO HS 10/18/13 Ascorbic Acid [Vitamin C] 1,000 mg PO HS 11/13/15 Cholecalciferol [Vitamin D3] 4,000 unit PO HS 11/13/15 Cyanocobalamin (Vitamin B-12) [Vitamin B-12] 1,000 mcg PO HS 07/13/19 tadalafiL [Cialis] 5 mg PO HS 12/17/20 Multivitamins, Thera [Multivitamin (formulary)] 1 tab PO HS 07/27/21 LORazepam [Ativan] 0.5 mg PO ONCE PRN 11/03/22 Controlled Substance Measures - Controlled Substance Measures Is patient prescribed a controlled substance at discharge?: No
== END | disposition home or self-care (01) ==
LOC: PNWHC3 07:26
PROVIDERS: ATTEND Specialist
DX: M50.30 Other cervical disc degeneration, unspecified cervical region (principal); M47.812 Spondylosis without myelopathy or radiculopathy, cervical region
CPT/HCPCS: 99211

== ENCOUNTER → 2023-06-21 | Day surgery (SDC) | payer OTHER ==
[~2023-06-21] MED LIST changes: +DEXAMETHASONE SOD PHOSPHATE 10 MG/ML 1 ML VIAL ONE; +IOPAMIDOL M200 10 ML VIAL ONE; -LACTATED RINGERS 1,000 ML IV SCH; +MIDAZOLAM 2 MG/2 ML VIAL ONE; +fentaNYL (PF) 50 MCG/ML 2 ML AMP ONE
[2023-06-21 06:30] VITALS: TEMP 97.1
[2023-06-21] MEDS: LACTATED RINGERS 1,000 ML IV SCH (06:45)
--- NOTE | 2023-06-21 07:14 | P.PCN ---
Date of Procedure: 06/21/23 Procedure(s) Performed: PROCEDURE 1. Cervical epidural steroid injection under fluoroscopic guidance, C6-7 (fluoroscopy images available in the radiology department ) 2. Cervical epidurogram. PREOPERATIVE DIAGNOSIS: 1- Cervical Degenerative Disc Diseases 2- Cervical radiculopathy., 3-cervical spondylosis with cervical Facet arthropathy without myelopathy. POSTOPERATIVE DIAGNOSIS: : 1- Cervical Degenerative Disc Diseases , 2- Cervical radiculopathy. 3-,cervical spondylosis with cervical Facet arthropathy without myelopathy. ANESTHESIA: Moderate Sedation with Versed 3 mg, fentanyl 100 mcg ,and local anesthesia with lidocaine 1% 3 ml . (sedation start time 07:00, end time 07:10 ) EBL :0 PROCEDURE INDICATION: The patient with neck pain and radiculitis unresponsive to conservative treatment consents for procedure. PROCEDURE DESCRIPTION / TECHNIQUE: The patient was seen and identified in the preoperative area. Risks, benefits, complications, including but not limited to infections ,bleeding , allergic reactions to the medications ,and not complete pain releife, and alternatives were discussed with the patient, the patient agreed to proceed with the procedure and signed the consent. Patient was taken to the OR and time out was completed. The patient was placed in the prone position on the procedure table. A pillow was placed under the patients chest to increase the cervical interlaminar space. The cervical area was prepped and draped in the usual sterile fashion. Sedation was used to decrease the patient's anxiety vital signs were closely monitored during the procedure. Using anterior-posterior fluoroscopy, the C6-7 interlaminar space was identified and the skin over this site was marked and then infiltrated with 1% lidocaine subcutaneously. Subsequently, a 20-gauge 3-1/2-inch Tuohy epidural needle was inserted and advanced toward the epidural space by means of the ``hanging-drop technique and guided by AP and lateral fluoroscopy. The correct needle position in the epidural space was verified with the injection of 2 mL of the water soluble contrast dye Isovue-200 and observing an excellent epidurogram with the epidural spread of the dye, after negative aspiration for blood and CSF and in the absence of paresthesias. then, mixture containing 20 mg Dexamethasone and 2 ml of preservative-free normal saline injected and a washout of epidurogram was seen. Needle was withdrawn intact, skin was cleansed, and bandages were applied. Complications= none. Disposition= patient was placed in supine position and transferred to the recovery room area in stable condition and there was no evidence of upper or lower extremity motor or sensory deficit after the procedure patient was discharged from recovery room after discharge criteria met and home discharge instructions was given by the staff and patient will follow with the pain clinic in 2-4 weeks
[2023-06-21] MEDS: IV FLUID CONTINUATION 600 ML IV ONE (07:16)
[2023-06-21 07:59] VITALS: BP 117/76; PULSE 66; RESP 16
--- NOTE | 2023-06-21 08:14 | FL ---
Fluoroscopy INDICATION: Pain FINDINGS: Fluoroscopy time: 2.5 seconds. Total dose area product (DAP) in uGy*m?, mGy*cm? (or similar): 0.00-8 0 Images obtained: 2. IMPRESSION: 1. Documentation of fluoroscopy.
== END ==
LOC: ORPAIN 06:01
PROVIDERS: ATTEND Specialist
DX: M47.22 Other spondylosis with radiculopathy, cervical region (principal); M50.123 Cervical disc disorder at C6-C7 level with radiculopathy
CPT/HCPCS: 62321; 99152; J2250; J1100; J3010; Q9966

== ENCOUNTER → 2023-07-20 | Outpatient (CLI) | payer OTHER ==
[2023-07-20 09:53] VITALS: BP 132/72; PULSE 76; RESP 15; TEMP 98.1
--- NOTE | 2023-07-20 13:24 | P.PAINPG ---
PQRS Measure Charge Sheet Comment: A 58 yr old male with a history of severe and chronic neck pain secondary to cervical DDD and spondylosis with facet arthropathy without myelopathy presents today for evaluation s/p ANDREAS ANDREAS C6-C7 #1. Pt states he experienced 70 % pain relief x 1 mo s/p procedure. Pain level is provoked at 3 /10 in intensity, constant, localized in the lower cervical spine, achy in character w shooting towards the BL shoulders. He no longer has pain in the RUE. Pain is provoked by lifting. Pain is alleviated with medications, topicals, injections, physician guided home exercise regimen daily since Oct 2022, [employer] exercise 3-4 times weekly which he is currently in, acupuncture treatments which he started this week, heat, repositioning and rest. Cervical disability score of 19. Interventional pain procedures completed include ANDREAS C6-7 x6, C7-T1 x5 Patient is currently on Tyl, Ibu, Aleve Patient denies any side effects of the medication(s), denies excessive drowsiness or sleepiness, denies suicidal ideation and reports that the current pain medication is helping to control the pain and improve activities of daily living. Patient denies any motor or sensory deficits. Patient denies any fever or night sweats, denies any change in the bowel movements or urination. Physical Examination: -Constitutional: Cooperative. Not in acute distress . - Neurologic: Cranial nerve II to XII intact. No focal neurological deficits. - Psychatric: Alert & oriented x 3. Matching mood & appropriate affect. Judgment and insight intact. - Musculoskeletal: Cervical spine: Muscle bulk/ tone/ strength in the bilateral upper extremities normal Vertebral body tenderness to palpation over C6 Spurling test positive over C6-7 BL Distraction test positive Facet loading test positive TTP Thoracic spine Muscle bulk / tone/ strength in the bilateral paraspinal muscles normal Vertebral body tender to palpation over Facet loading test positive TTP Lumbar spine: Motor bulk/ tone/ strength lower extremities , thigh and legs : 5/5 Deep tendon reflexes : Normal Knee Jerk. Normal Ankle Jerk . Vertebral body tenderness to palpation over Lumbar Facet Loading Test positive Straight Leg Raise: positive at 30 degrees right side/ left side Gaenslen's Test positive Sacral spine : Severe tenderness over the Sacroiliac joint: right side / left side Range of motion: Flexion of the lumbar spine <60 degrees Range of motion: Extension of the lumbar spine <20 degrees Gaenslen's Test positive R / L Sammie test: positive right side / left side Thigh Thrust Test positive R / L Sacral Thrust Test positive R/ L Assessment and plan: Chronic neck pain secondary to cervical DDD, spondylosis with facet arthropathy without myelopathy Will manage residual pain and may RTC on an as needed basis. All questions answered. I have spent less than 30 minutes on patient care today. Dr Mccoy was available by phone for the evaluation of this patient. The time was used to review the medical records including relevant urine studies and Prescription history (MAPs), review of the available imaging, evaluation and examination of the patient, coordination of care with the medical staff and if applicable referring physicians, as well as creation of the medical record PQRS Narrative: Smoking Status Never smoker Hx Alcohol Use (MH) No Home Medications: Ambulatory Orders Pravastatin Sodium [Pravachol] 40 mg PO HS 07/23/13 Omeprazole [PriLOSEC] 20 mg PO HS 10/18/13 Ascorbic Acid [Vitamin C] 1,000 mg PO HS 11/13/15 Cholecalciferol [Vitamin D3] 4,000 unit PO HS 11/13/15 Cyanocobalamin (Vitamin B-12) [Vitamin B-12] 1,000 mcg PO HS 07/13/19 tadalafiL [Cialis] 5 mg PO HS 12/17/20 Multivitamins, Thera [Multivitamin (formulary)] 1 tab PO HS 07/27/21 HYDROcodone/APAP 5-325MG [Victoria 5-325] 1 tab PO Q4HR PRN 3 Days #18 tab 06/21/23 Controlled Substance Measures - Controlled Substance Measures Is patient prescribed a controlled substance at discharge?: No
== END ==
LOC: PNWHC3 09:04
PROVIDERS: ATTEND Specialist
DX: M50.323 Other cervical disc degeneration at C6-C7 level (principal); M47.812 Spondylosis without myelopathy or radiculopathy, cervical region
CPT/HCPCS: 99211

== ENCOUNTER → 2023-12-14 | Outpatient (CLI) | payer BC, OTHER ==
[2023-12-14 10:31] VITALS: BP 115/78; PULSE 74; RESP 16; TEMP 98.3
--- NOTE | 2023-12-14 11:11 | P.PROGSL ---
Subjective DATE: 12/14/2023 FOLLOW UP VISIT. Patient with obstructive sleep apnea hypopnea syndrome return to sleep center for follow-up visit. Information from previous visit have been reviewed. Patient is using PAP equipment every night for the whole night, getting PAP supplies in time. The patient does not have significant problems with the mask, PAP unit and humidification. Reese sleepiness scale is slightly increased to 11. I checked information from PAP unit. PAP unit pressure maximal inspiratory pressure 14, minimal expiratory pressure 4.0, pressure support 4, average pressure 12.3/8.3 cm H2O. Usage is 98% for more then 4 hours, average 5.3 hours per night. Leak is 14 l/m, which is in acceptable range. Apnea Hypopnea Index is 2.7, which is normal. MEDICATIONS have been reviewed, please see below. During physical exam: GENERAL: A pleasant patient without any distress. VITAL SIGNS: Please see below, weight is 248 lbs. HEENT: PERRLA, EOMI.low position of soft palate, Mallapati 3 . NECK: Supple. No JVD. LUNGS: Clear to percussion and to auscultation. Good air exchange. No wheezing or rhonchi. HEART: S1, S2 regular. ABDOMEN: Soft and nontender.[] EXTREMITIES: No clubbing or cyanosis. MILLER KILN DRIED SALT: Awake, alert, and oriented x3. No focal deficit. Impressions: 1. Obstructive sleep apnea-hypopnea syndrome. Patient demonstrated great compliance with treatment, benefiting from treatment. 2. Obesity, BMI 38.8, patient lost 14 pounds since previous visit. 3. History of headaches. 4. History of hyperlipidemia. 5. History of neck problems. Plan: 1. Continue using PAP equipment every night for the whole night. 2. Sleep hygiene with regular time in bed for at least 7.5-8 hours 3. PAP unit should stay lower then position of the head. 4. Advised patient to remove all remaining water from humidifier canister daily and make it dry after each usage. Refill canister with fresh distilled water before each usage. 5. Watching weight. 6. Precautions related to driving. No driving if feel any sleepiness. 7. I will maintain prescription for PAP supplies including mask, tube, filters. 8. Follow up visit in 8 months or earlier if patient has any problems. Thank you very much for allowing me to participate in the management of your patient. Mart Dong MD, PhD, FAASM. Diplomat of [place] [employer], Sleep Medicine Board by [employer] [facility] [place] cc: Silvina Grajeda DO Objective - Vital Signs Vital Signs: Vital Signs Temp 98.3 F 12/14/23 10:30 Pulse 74 12/14/23 10:30 Resp 16 12/14/23 10:30 BP 115/78 12/14/23 10:30 Pulse Ox 97 12/14/23 10:30 FiO2 Intake & Output 12/13/23 12/14/23 12/14/23 18:59 06:59 18:59 Weight 112.491 kg Home Medications: Home Medications Medication Instructions Recorded Confirmed Type Pravastatin Sodium [Pravachol] 40 mg PO HS 07/23/13 06/21/23 History Omeprazole [PriLOSEC] 20 mg PO HS 10/18/13 06/21/23 History Ascorbic Acid [Vitamin C] 1,000 mg PO HS 11/13/15 06/21/23 History Cholecalciferol [Vitamin D3] 4,000 unit PO HS 11/13/15 06/21/23 History Cyanocobalamin (Vitamin B-12) 1,000 mcg PO HS 07/13/19 06/21/23 History [Vitamin B-12] tadalafiL [Cialis] 5 mg PO HS 12/17/20 06/21/23 History Multivitamins, Thera [Multivitamin 1 tab PO HS 07/27/21 06/21/23 History (formulary)] HYDROcodone/APAP 5-325MG [[place]ruff 1 tab PO Q4HR PRN 3 Days #18 tab 06/21/23 Rx 5-325]
== END ==
LOC: 3 N SLEEP 10:15
PROVIDERS: ATTEND Internal Medicine
CPT/HCPCS: 99212

== ENCOUNTER 2024-04-16 10:12 | Day surgery (SDC) | payer BC, OTHER ==
[~2024-04-16 10:12] MED LIST changes: -DEXAMETHASONE SOD PHOSPHATE 10 MG/ML 1 ML VIAL ONE; +DEXAMETHASONE SOD PHOSPHATE 4 MG/ML 1 ML VIAL IV ONE; +HEPARIN SODIUM,PORCINE 5,000 UNIT/ML 1 ML VIAL SQ PRN; +HYDROmorphone 0.5 MG/0.5 ML SYRINGE IVP PRN; -IOPAMIDOL M200 10 ML VIAL ONE; +MIDAZOLAM 2 MG/2 ML VIAL IV PRN; -MIDAZOLAM 2 MG/2 ML VIAL ONE; +ONDANSETRON 4 MG/2 ML VIAL IVP ONE; +SCOPOLAMINE 1 MG/72 HR PATCH TRANSDERM ONE; -fentaNYL (PF) 50 MCG/ML 2 ML AMP ONE
[2024-04-16] MEDS: IV FLUID CONTINUATION 1,000 ML IV ONE ×2 (11:11→12:08)
[2024-04-16 11:15] LABS: Glucose,Whole Blood 103 mg/dL (70-110)
[2024-04-16] MEDS: MIDAZOLAM 2 MG/2 ML VIAL IV ONE (11:38)
[2024-04-16 11:40] LABS: Basophils # (A) 0.1 k/uL (0-0.2); Basophils % (A) 1 %; Eosinophils # (A) 0.2 k/uL (0-0.7); Eosinophils % (A) 4 %; HCT 44.3 % (39.0-53.0); HGB 14.4 gm/dL (13.0-17.5); Lymphocytes # (A) 2.2 k/uL (1.0-4.8); Lymphocytes % (A) 34 %; MCH 24.8 pg (25.0-35.0); MCHC 32.4 g/dL (31.0-37.0); MCV 76.5 fL (80.0-100.0); Mean Platelet Volume 7.4; Microcytosis Slight; Monocytes # (A) 0.4 k/uL (0-1.0); Monocytes % (A) 7 %; Neutrophils # (A) 3.4 k/uL (1.3-7.7); Neutrophils % (A) 52 %; Platelet Count 177 k/uL (150-450); RBC 5.79 m/uL (4.30-5.90); RDW 14.5 % (11.5-15.5); WBC 6.4 k/uL (3.8-10.6)
[2024-04-16] MEDS: LACTATED RINGERS 1,000 ML IV SCH (11:40)
[2024-04-16] MEDS: DEXAMETHASONE SOD PHOSPHATE 4 MG/ML 1 ML VIAL IVP STA (11:42)
[2024-04-16] MEDS: FAMOTIDINE 20 MG/2 ML VIAL IV STA (11:43)
[2024-04-16] MEDS: ONDANSETRON 4 MG/2 ML VIAL IVP STA (11:43)
[2024-04-16] MEDS: HEPARIN SODIUM,PORCINE 5,000 UNIT/ML 1 ML VIAL SQ STA (12:04)
[2024-04-16] MEDS ORDERED: MIDAZOLAM 2 MG/2 ML VIAL ONE (12:05)
[2024-04-16] MEDS ORDERED: SUGAMMADEX SODIUM 100 MG/ML SYR IV ONE (12:05)
[2024-04-16] MEDS ORDERED: LIDOCAINE 1% INJ 10MG/ML (20 ML MDV) ONE (12:05)
[2024-04-16] MEDS ORDERED: SUCCINYLCHOLINE CHLORIDE 200 MG/10 ML VIAL IV ONE (12:05)
[2024-04-16] MEDS ORDERED: ROCURONIUM 10 MG/ML (5 ML VIAL) IV ONE (12:05)
[2024-04-16] MEDS ORDERED: fentaNYL (PF) 50 MCG/ML 2 ML AMP ONE (12:05)
[2024-04-16] MEDS ORDERED: DEXAMETHASONE SOD PHOSPHATE 10 MG/ML 1 ML VIAL ONE (12:05)
[2024-04-16] MEDS ORDERED: PROPOFOL 10 MG/ML 20 ML VIAL IV ONE (12:05)
[2024-04-16] MEDS ORDERED: GLYCOPYRROLATE 0.2 MG/ML 2 ML VIAL ONE (12:05)
[2024-04-16] MEDS ORDERED: NEOSTIGMINE 1 MG/ML 10 ML VIAL ONE (12:05)
[2024-04-16] MEDS: LIDOCAINE 1%-EPI 1:100,000 20 ML VIAL SQ ONE ×2 (12:32)
[2024-04-16] MEDS: LACTATED RINGERS 1,000 ML IV ONE ×2 (13:00→15:05)
[2024-04-16] MEDS: IPRATROPIUM-ALBUTEROL 3 ML NEB INHALATION STA (13:57)
[2024-04-16 14:00] VITALS: TEMP 98
[2024-04-16 14:04] VITALS: RESP 16
[2024-04-16] MEDS: HYDROmorphone 0.5 MG/0.5 ML SYRINGE IVP PRN (14:11)
[2024-04-16] MEDS: HYDROcodone/APAP 5-325MG 1 EACH TAB PO ONE (15:27)
[2024-04-16 15:40] VITALS: BP 115/54; PULSE 87
--- NOTE | 2024-04-18 21:26 | P.OP ---
Date of Procedure: 04/16/24 Preoperative Diagnosis: Right inguinal hernia Postoperative Diagnosis: Right inguinal indirect hernia Procedure(s) Performed: Robotic right inguinal hernia repair with mesh placement Anesthesia: KRISTY Surgeon: Corina Aguero Pathology: none sent Condition: stable Disposition: same day Indications for Procedure: 58-year-old male presented to the surgery clinic with complaint of right groin pain and bulge. On workup he is found to have right inguinal hernia. Plan for robotic right inguinal hernia repair with mesh placement. Risks, benefits and alternatives including risks of bleeding, infection and mesh complications were discussed. All questions answered. Operative Findings: Right inguinal indirect hernia Small bowel adhesions Description of Procedure: Patient was brought to the operating suite and placed in supine position on the operating table. General endotracheal anesthesia was induced and arms were then tucked to the sides bilaterally. Preoperative antibiotics were given prior to incision. A supraumbilical incision was made approximately 20 cm superior to the pubic symphysis. The abdomen was then entered after dissection was taken to the fascia and the fascia was incised. An 8 mm trocar was placed. Pneumoperitoneum was achieved. 2 additional incisions were made approximately 11 cm lateral to the supraumbilical incision and 8 mm trocars were placed. The patient was then placed in Trendelenburg position and the hernia site was clearly visualized on the right side. This was noted as of right sided indirect inguinal hernia. The robot was then docked appropriately. Incision was then made just lateral to the medial umbilical ligament on the right side with the monopolar scissors and the peritoneal flap was created and was taken down towards Markus's ligament. The flap was then extended laterally. Attention was then turned to the indirect inguinal hernia. The sac was then freed from the cord all while preserving the cord structures. At this point the indirect hernia was reduced. Once the entire space was appropriately dissected out, we brought the ProGrip mesh and unrolled it over the hernia site. Once appropriately in place, the peritoneal flap was closed using a running 2-0 V-Loc suture. Small bowel adhesions were noted inferior to the site and were taken down to appropriately close the peritoneal flap. No obvious bowel injury was noted. Once this was completed, we removed all robotic instruments and undocked the robot. The supraumbilical fascial incision was closed with 0 Vicryl suture using a Roberto Flower device under direct visualization. All skin incisions were then closed with 4-0 Vicryl subcuticular suture. Sterile dressing was applied. The patient was awakened in the operative and taken to postanesthesia care in stable condition.
== END 2024-04-16 16:06 | disposition home or self-care (01) ==
LOC: OR 10:12
PROVIDERS: ATTEND Surgery
DX: K40.90 Unilateral inguinal hernia, without obstruction or gangrene, not specified as recurrent (principal); K66.0 Peritoneal adhesions (postprocedural) (postinfection); G47.33 Obstructive sleep apnea (adult) (pediatric); E78.5 Hyperlipidemia, unspecified; I10 Essential (primary) hypertension; E07.9 Disorder of thyroid, unspecified; N40.0 Benign prostatic hyperplasia without lower urinary tract symptoms; F43.10 Post-traumatic stress disorder, unspecified; K21.9 Gastro-esophageal reflux disease without esophagitis; Z79.899 Other long term (current) drug therapy; Z79.890 Hormone replacement therapy; Z98.890 Other specified postprocedural states
CPT/HCPCS: 49650; S2900; 85025

== ENCOUNTER → 2024-05-08 | Outpatient (CLI) | payer BC, OTHER ==
--- NOTE | 2024-05-08 08:14 | MR ---
EXAMINATION TYPE: MR Prostate wo/w con DATE OF EXAM: 05/08/2024 7:47 AM COMPARISON: 01/28/2023. CLINICAL INDICATION: Male, 58 years old with history of R97.20 ELEVATED PROSTATE SPECIFIC ANTIGEN [PS A]; Elevated PSA. TECHNIQUE: Multi-planar, multi-sequence imaging of the pelvis is performed prior to and following the uncomplicated administration of bolus intravenous gadolinium. IV Contrast: 12 mL Gadobutrol Interpretive Criteria: PI-RADS v2.1 SERUM PSA: -04-17 = 5.56 12-04-16 = 3.96 SURGICAL PATHOLOGY: No data available. FINDINGS: Prostatic dimensions: 4.6 x 5.9 x 4.8 cm. Ellipsoid Volume:68.21 (PSA density=0.08 ng/mL/mL) CENTRAL GLAND (Central and Transition Zones/CZ+TZ): Multiple bilateral, heterogenous appearing hypertrophic stromal nodules, without suspicious lesion. M edian lobe hypertrophy with protrusion into the base of the bladder. (PI-RADS 2) PERIPHERAL ZONE (PZ): Bilateral linear, indistinct wedgelike areas of low ADC, and low T2 signal, No evidence of masslike a bnormality, or localized perfusional hypervascularity, to further suggest a focus of clinically signi ficant prostate cancer. (PI-RADS 2) SEMINAL VESICLES (SV): Symmetric and unremarkable. PERIPROSTATIC TISSUES: Unremarkable. LYMPH NODES: No enlarged pelvic lymph node. REMAINING PELVIS: Bladder wall is within normal limits given distention. No abnormal free or organized intrapelvic fluid collection. No pathologic bowel dilation or mural thickening. Right fat containing inguinal hernia OSSEOUS STRUCTURES: No suspicious osseous abnormality. IMPRESSION: 1. No specific features for high-risk prostate cancer. Maximum PI-RADS score: 2. 2. Moderate BPH, estimated gland volume 68.21 (PSA density=0.08 ng/mL/mL) 3. No suspicious osseous lesion. No lymphadenopathy. No evidence of prostate adenocarcinoma involving the periprostatic tissues. [facility], , 05/08/2024 8:12 AM
== END | disposition home or self-care (01) ==
LOC: RADMRIMAIN 06:10
PROVIDERS: ATTEND Family Medicine
DX: N40.0 Benign prostatic hyperplasia without lower urinary tract symptoms (principal); R97.20 Elevated prostate specific antigen [PSA]
CPT/HCPCS: 72197; A9585

== ENCOUNTER 2024-05-29 10:59 | Emergency (ER) | payer OTHER, BC ==
[2024-05-29 11:05] VITALS: RESP 20; TEMP 99.2
--- NOTE | 2024-05-29 11:57 | ED ---
Abdominal Pain HPI - General Chief Complaint: Abdominal Pain Stated Complaint: hernia issue Time Seen by Provider: 05/29/24 11:53 Source: patient, RN notes reviewed Mode of arrival: ambulatory Limitations: no limitations - History of Present Illness Initial Comments: 58-year-old male sent by Dr. Cabrera for right inguinal hernia. Patient states he had a right inguinal hernia repair by Dr. Aguero at the end of March (1.5 months ago). States 4 to 5 days ago, he got up from bed and he heard a pop in the right inguinal area. Since then he has been experiencing discomfort in that area and feels a bulge when he strains. No changes in bowel or bladder habits. Denies nausea, vomiting, diarrhea. States he had a appointment with Dr. Cabrera this morning who sent him here for a CT scan of the abdomen. - Related Data Home Medications Medication Instructions Recorded Confirmed Pravastatin Sodium [Pravachol] 40 mg PO HS 07/23/13 05/29/24 Omeprazole [PriLOSEC] 20 mg PO HS 10/18/13 05/29/24 Ascorbic Acid [Vitamin C] 1,000 mg PO HS 11/13/15 05/29/24 Cyanocobalamin (Vitamin B-12) 1,000 mcg PO HS 07/13/19 05/29/24 [Vitamin B-12] Levothyroxine Sodium [Synthroid] 75 mcg PO HS 03/14/24 05/29/24 Cephalexin [Keflex] 500 mg PO Q12HR 05/29/24 05/29/24 Cholecalciferol [Vitamin D3 (125 125 mcg PO HS 05/29/24 05/29/24 Mcg = 5000 Iu)] amLODIPine [Norvasc] 5 mg PO HS 05/29/24 05/29/24 tadalafiL 10 mg PO HS 05/29/24 05/29/24 Allergies Allergy/AdvReac Type Severity Reaction Status Date / Time No Known Allergies Allergy Verified 04/16/24 10:52 Review of Systems ROS Statement: Those systems with pertinent positive or pertinent negative responses have been documented in the HPI. ROS Other: All systems not noted in ROS Statement are negative. Past Medical History Past Medical History: GERD/Reflux, Hyperlipidemia, Hypertension, Prostate Disorder, Sleep Apnea/CPAP/BIPAP, Thyroid Disorder Additional Past Medical History / Comment(s): CHRONIC NECK PAIN/pinched nerve, OCCASIONAL BACK PAIN. . "Terrible headaches". wears cpap. zepbound wt loss. "night terrors" BPH, inguinal hernia - surgery rescheduled due to recent flu A dx and tx. History of Any Multi-Drug Resistant Organisms: None Reported Past Surgical History: Hernia Repair, Orthopedic Surgery Additional Past Surgical History / Comment(s): EXCISION OF GANGLION CYST LEFT HAND, pain clinic procedures. Past Anesthesia/Blood Transfusion Reactions: No Reported Reaction Additional Past Anesthesia/Blood Transfusion Reaction / Comment(s): . Past Psychological History: PTSD Smoking Status: Never smoker - Past Family History Mother Family Medical History: Diabetes Mellitus, Hyperlipidemia General Exam Limitations: no limitations General appearance: alert, in no apparent distress Head exam: Present: atraumatic, normocephalic, normal inspection GI/Abdominal exam: Present: soft, normal bowel sounds, hernia (Right inguinal hernia palpated when patient strains, is reducible. No overlying skin changes). Absent: distended, tenderness, guarding, rebound, rigid Neurological exam: Present: alert, oriented X3 Psychiatric exam: Present: normal affect, normal mood Skin exam: Present: warm, dry, intact, normal color. Absent: rash Course Vital Signs 05/29/24 11:02 Temperature 99.2 F Pulse Rate 92 Respiratory 20 Rate Blood Pressure 180/78 O2 Sat by Pulse 97 Oximetry Medical Decision Making - Medical Decision Making Was pt. sent in by a medical professional or institution (, PA, TECHNOLOGY ASSISTANT, urgent care, hospital, or long-term...) When possible be specific @ -Sent by Dr. Cabrera for CT scan for right inguinal hernia Did you speak to anyone other than the patient for history (EMS, parent, family, police, friend...)? What history was obtained from this source @ -No Did you review nursing and triage notes (agree or disagree)? Why? @ -I reviewed and agree with nursing and triage notes Were old charts reviewed (outside hosp., previous admission, EMS record, old EKG, old radiological studies, urgent care reports/EKG's, long-term records)? Report findings @ -No old charts were reviewed Differential Diagnosis (chest pain, altered mental status, abdominal pain women, abdominal pain men, vaginal bleeding, weakness, fever, dyspnea, syncope, headache, dizziness, GI bleed, back pain, seizure, CVA, palpatations, mental health, musculoskeletal)? @ -Differential Abdominal Pain Men: Inguinal hernia, strangulated hernia, appendicitis, cholecystitis, diverticulosis, ischemic bowel, pancreatitis, hepatitis, UTI, gastroenteritis, AAA, incarcerated hernia, bowel obstruction, constipation, inflammatory bowel, hepatitis, peptic ulcer disease, splenic infarction, perforated viscus, testicular torsion, this is not meant to be an all-inclusive list EKG interpreted by me (3pts min.). @ -[As ab none X-rays interpreted by me (1pt min.). @ -None done CT interpreted by me (1pt min.). @ -CT abdomen pelvis with contrast reveals 2 cm fat-containing right inguinal hernia U/S interpreted by me (1pt. min.). @ -None done What testing was considered but not performed or refused? (CT, X-rays, U/S, labs)? Why? @ -None What meds were considered but not given or refused? Why? @ -Patient declines pain meds Did you discuss the management of the patient with other professionals (professionals i.e. , PA, TECHNOLOGY ASSISTANT, lab, RT, psych nurse, social secretary, corporation lawyer, teacher, correctional security officer, outsole caser)? Give summary @ -I spoke with Dr. Cabrera who states he is in the facility and is going to come to the ER to speak with the patient and will likely schedule elective surgery outpatient Was smoking cessation discussed for >3mins.? @ -No Was critical care preformed (if so, how long)? @ -No Were there social determinants of health that impacted care today? How? (Homelessness, low income, unemployed, alcoholism, drug addiction, transport ation, low edu. Level, literacy, decrease access to med. care, long term, rehab)? @ -No Was there de-escalation of care discussed even if they declined (Discuss DNR or withdrawal of care, Hospice)? DNR status @ -No What co-morbidities impacted this encounter? (DM, HTN, Smoking, COPD, CAD, Cancer, CVA, ARF, Chemo, Hep., AIDS, mental health diagnosis, sleep apnea, morbid obesity)? @ -None Was patient admitted / discharged? Hospital course, mention meds given and route, prescriptions, significant lab abnormalities, going to OR and other pertinent info. @ -58-year-old male sent by Dr. Cabrera for CT scan of right inguinal hernia. Patient recently had right inguinal hernia repair 1.5 months ago and heard a pop in the area 4 to 5 days ago. There is a palpable right inguinal hernia with straining. Hernia is reducible. CT reveals 2 cm fat-containing right inguinal hernia. Dr. Cabrera spoke with the patient and recommends scheduling elective surgery outpatient. Patient will be discharged today with close outpatient follow-up and strict return precautions. Case was discussed with my ED attendi constantin Razo. Undiagnosed new problem with uncertain prognosis? @ -No Drug Therapy requiring intensive monitoring for toxicity (Heparin, Nitro, Insulin, Cardizem)? @ -No Were any procedures done? @ -No Diagnosis/symptom? @ -Right inguinal hernia Acute, or Chronic, or Acute on Chronic? @ -Acute Uncomplicated (without systemic symptoms) or Complicated (systemic symptoms)? @ -Uncomplicated Side effects of treatment? @ -No Exacerbation, Progression, or Severe Exacerbation? @ -No Poses a threat to life or bodily function? How? (Chest pain, [place], [place], pneumonia, PE, COPD, DKA, ARF, appy, cholecystitis, CVA, Diverticulitis, Homicidal, Suicidal, threat to staff... and all critical care pts) @ -Not at this time - Lab Data Result diagrams: 05/29/24 12:06 05/29/24 12:06 Lab Results 05/29/24 05/29/24 05/29/24 Range/Units 12:06 12:06 12:06 WBC 7.60 (4.50-10.00) 10*3/uL RBC 5.89 H (4.40-5.60) 10*6/uL Hgb 15.0 (13.0-17.0) g/dL Hct 44.7 (39.6-50.0) % MCV 75.9 L (80.0-97.0) fL MCH 25.5 L (27.0-32.0) pg MCHC 33.6 (32.0-37.0) g/dL Plt Count 229 (140-440) 10*3/uL MPV 9.4 L (9.5-12.2) fL Immature Gran % (Auto) 0.4 % Neutrophils % 57.5 % Lymphocytes % 29.3 % Monocytes % 10.4 % Eosinophils % 1.7 % Basophils % 0.7 % Immature Gran # 0.03 (0.00-0.04) 10*3/uL Neutrophils # 4.37 (1.80-7.70) 10*3/uL Lymphocytes # 2.23 (0.90-5.00) 10*3/uL Monocytes # 0.79 (0.20-1.00) 10*3/uL Eosinophils # 0.13 (0.04-0.35) 10*3/uL Basophils # 0.05 (0.00-0.10) 10*3/uL Sodium 138 (137-145) mmol/L Potassium 4.9 (3.5-5.1) mmol/L Chloride 102 (98-107) mmol/L Carbon Dioxide 28 (22-30) mmol/L Anion Gap 8 mmol/L BUN 25 H (9-20) mg/dL Creatinine 1.02 (0.66-1.25) mg/dL Est GFR (CKD-EPI)AfAm >90 (>60 ml/min/1.73 sqM) Est GFR (CKD-EPI)NonAf 80 (>60 ml/min/1.73 sqM) Glucose 115 H (74-99) mg/dL Plasma Lactic Acid Catrachito 1.0 (0.7-2.0) mmol/L Calcium 10.2 (8.4-10.2) mg/dL Total Bilirubin 0.9 (0.2-1.3) mg/dL AST 48 (17-59) U/L ALT 27 (4-49) U/L Alkaline Phosphatase 52 (38-126) U/L Total Protein 7.0 (6.3-8.2) g/dL Albumin 4.3 (3.5-5.0) g/dL Disposition Clinical Impression: Right inguinal hernia Disposition: HOME SELF-CARE Condition: Stable Additional Instructions: Please return to the Emergency Department if symptoms worsen or any other concerns. Is patient prescribed a controlled substance at d/c from ED?: No Referrals: Silvina Grajeda DO [Primary Care Provider] - 1-2 days Time of Disposition: 15:56
[2024-05-29 12:31] LABS: Basophils # (A) 0.05 10*3/uL (0.00-0.10); Basophils % (A) 0.7 %; Eosinophils # (A) 0.13 10*3/uL (0.04-0.35); Eosinophils % (A) 1.7 %; HCT 44.7 % (39.6-50.0); Lymphocytes # (A) 2.23 10*3/uL (0.90-5.00); Lymphocytes % (A) 29.3 %; MCH 25.5 pg (27.0-32.0); MCHC 33.6 g/dL (32.0-37.0); MCV 75.9 fL (80.0-97.0); Mean Platelet Volume 9.4 fL (9.5-12.2); Monocytes # (A) 0.79 10*3/uL (0.20-1.00); Monocytes % (A) 10.4 %; Neutrophils # (A) 4.37 10*3/uL (1.80-7.70); Neutrophils % (A) 57.5 %; Platelet Count 229 10*3/uL (140-440); RBC 5.89 10*6/uL (4.40-5.60); RDW 14.8 % (11.5-14.5)
[2024-05-29 12:53] LABS: ALT 27 U/L (4-49); African American GFR (CKD) >90 (>60 ml/min/1.73 sqM); Anion Gap 8 mmol/L; Blood Urea Nitrogen 25 mg/dL (9-20); Calcium 10.2 mg/dL (8.4-10.2); Carbon Dioxide 28 mmol/L (22-30); Chloride 102 mmol/L (98-107); Glucose 115 mg/dL (74-99); Non-African American GFR(CKD) 80 (>60 ml/min/1.73 sqM); Sodium 138 mmol/L (137-145); Total Bilirubin 0.9 mg/dL (0.2-1.3)
[2024-05-29 12:58] LABS: AST 48 U/L (17-59); Albumin 4.3 g/dL (3.5-5.0); Alkaline Phosphatase 52 U/L (38-126); Potassium 4.9 mmol/L (3.5-5.1)
--- NOTE | 2024-05-29 13:48 | CT ---
EXAMINATION TYPE: CT abdomen pelvis w con DATE OF EXAM: 05/29/2024 COMPARISON: None CLINICAL INDICATION: Male, 58 years old with history of right inguinal hernia; [facility], RT inguinal herni a, recent sx in March TECHNIQUE: Performed without Oral Contrast and with IV Contrast, patient injected with 100 ml mL of Isovue 300. CT DLP: 2331.[address] CTDI: mGy Automated exposure control for dose reduction was used. FINDINGS: The lung bases are clear. The gallbladder is normal without distention, wall thickening, pericholecystic fluid or gallstones. T here is no biliary ductal dilatation. There is no focal mass or organomegaly involving the liver, pancreas, spleen or adrenal glands. There is no solid renal mass or hydronephrosis and there is homogeneous contrast enhancement of the r enal parenchyma. The caliber the abdominal aorta is normal is no retroperitoneal adenopathy or hemorr guerita. The bowel loops are normal in caliber and there is no evidence of dilatation or obstruction. No infla mmatory changes are identified in the bowel wall or mesentery. There is no free intraperitoneal air or fluid. There is a 2 cm fat containing right inguinal hernia. There is [id number] prosthetic hypertrophy. No pelvic mass, free fluid, abscess or adenopathy. The osseous structures and soft tissues are intact. IMPRESSION: 1. 2 cm fat-containing right inguinal hernia. 2. Mild to moderate prostatic hypertrophy. [facility], , 05/29/2024 1:46 PM
[2024-05-29 16:06] VITALS: BP 150/89; PULSE 78
== END 2024-05-29 16:05 | disposition home or self-care (01) ==
LOC: EC 10:59
DX: K40.90 Unilateral inguinal hernia, without obstruction or gangrene, not specified as recurrent (principal)
CPT/HCPCS: 36415; 80053; 83605; 85025; 74177; 99284; Q9967

== ENCOUNTER → 2024-08-23 | Outpatient (CLI) | payer BC, OTHER ==
[2024-08-23 10:17] VITALS: BP 127/78; PULSE 76; RESP 16; TEMP 98.2
--- NOTE | 2024-08-23 11:01 | P.PROGSL ---
Subjective DATE: 08/23/2024 FOLLOW UP VISIT. Patient with obstructive sleep apnea hypopnea syndrome return to sleep center for follow-up visit. Information from previous visit have been reviewed. Patient is using PAP equipment every night for the whole night, getting PAP supplies in time. The patient does not have significant problems with the mask, PAP unit and humidification. Bozman sleepiness scale is 10, which is borderline. I checked information from PAP unit. PAP unit pressure maximal inspiratory pressure 14, minimal expiratory pressure for, pressure support 4, average pressure 12.3/8.3 cm H2O. Usage is 100% for more then 4 hours, average 6.2 hours per night. Leak is 14 l/m, which is in acceptable range. Apnea Hypopnea Index is 4.4, which is normal. MEDICATIONS: Amlodipine, pravastatin, levothyroxine, omeprazole, Mounjaro. During physical exam: GENERAL: A pleasant patient without any distress. VITAL SIGNS: Please see below, weight is 261 lbs. HEENT: PERRLA, EOMI.low position of soft palate, Mallapati 3. NECK: Supple. No JVD. LUNGS: Clear to percussion and to auscultation. Good air exchange. No wheezing or rhonchi. HEART: S1, S2 regular. ABDOMEN: Soft and nontender. Obese EXTREMITIES: No clubbing or cyanosis. 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 No focal deficit. Impressions: 1. Obstructive sleep apnea-hypopnea syndrome. Patient demonstrated great compliance with treatment, benefiting from treatment. 2. Obesity, BMI 40.6, patient increased weight on 13 pounds comparing with previous visit. 3. History of headaches. 4. History of hyperlipidemia. 5. History of neck problems. Plan: 1. Continue using PAP equipment every night for the whole night. 2. Sleep hygiene with regular time in bed for at least 7.5-8 hours 3. PAP unit should stay lower then position of the head. 4. Advised patient to remove all remaining water from humidifier canister daily and make it dry after each usage. Refill canister with fresh distilled water before each usage. 5. Watching and losing weight. 6. Precautions related to driving. No driving if feel any sleepiness. 7. I will maintain prescription for PAP supplies including mask, tube, filters. 8. Follow up visit in 8 months or earlier if patient has any problems. Thank you very much for allowing me to participate in the management of your patient. Mart Dong MD, PhD, FAASM. Diplomat of [place] [employer], Sleep Medicine Board by [place] [employer] Re[employer] of [facility] [place] Objective - Vital Signs Vital Signs: Vital Signs Temp 98.2 F 08/23/24 10:17 Pulse 76 08/23/24 10:17 Resp 16 08/23/24 10:17 BP 127/78 08/23/24 10:17 Pulse Ox 94 L 08/23/24 10:17 FiO2 Intake & Output 08/22/24 08/23/24 08/23/24 18:59 06:59 18:59 Weight 118.388 kg Home Medications: Home Medications Medication Instructions Recorded Confirmed Type Pravastatin Sodium [Pravachol] 40 mg PO HS 07/23/13 05/29/24 History Omeprazole [PriLOSEC] 20 mg PO HS 10/18/13 05/29/24 History Ascorbic Acid [Vitamin C] 1,000 mg PO HS 11/13/15 05/29/24 History Cyanocobalamin (Vitamin B-12) 1,000 mcg PO HS 07/13/19 05/29/24 History [Vitamin B-12] Levothyroxine Sodium [Synthroid] 75 mcg PO HS 03/14/24 05/29/24 History Cephalexin [Keflex] 500 mg PO Q12HR 05/29/24 05/29/24 History Cholecalciferol [Vitamin D3 (125 125 mcg PO HS 05/29/24 05/29/24 History Mcg = 5000 Iu)] amLODIPine [Norvasc] 5 mg PO HS 05/29/24 05/29/24 History tadalafiL 10 mg PO HS 05/29/24 05/29/24 History
== END ==
LOC: 3 N SLEEP 09:59
PROVIDERS: ATTEND Internal Medicine
DX: G47.33 Obstructive sleep apnea (adult) (pediatric) (principal); E66.9 Obesity, unspecified; E78.5 Hyperlipidemia, unspecified; Z86.69 Personal history of other diseases of the nervous system and sense organs; Z99.89 Dependence on other enabling machines and devices; Z68.41 Body mass index [BMI] 40.0-44.9, adult; Z87.39 Personal history of other diseases of the musculoskeletal system and connective tissue
CPT/HCPCS: 99212